=== PATIENT | female | born 2005 | race Caucasian/White ===

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

== ENCOUNTER 2025-01-10 10:34 | Outpatient (CLI) | payer BC, SELFPAY ==
[2025-01-11 03:36] LABS: Progesterone 29.6 ng/mL (.)
== END 2025-01-10 23:59 | disposition home or self-care (01) ==
LOC: LAB 10:35
PROVIDERS: Visit Provider Obstetrics & Gynecology
DX: Z32.01 Encounter for pregnancy test, result positive (principal)
CPT/HCPCS: 36415; 84144

== ENCOUNTER 2025-01-21 14:21 | Outpatient (CLI) | payer BC, SELFPAY ==
[2025-01-21 17:35] LABS: Alanine Aminotransferase 18 U/L (12-78); Albumin Level 4.2 g/dl (3.5-5.0); Albumin/Globulin Ratio 1.6 (1.1-1.8); Alkaline Phosphatase 69 U/L (38-126); Anion Gap 13.2 mEq/L (5-15); Aspartate Amino Transferase 24 U/L (14-36); Bilirubin,Total 0.4 mg/dl (0.2-1.3); Blood Urea Nitrogen 8 mg/dl (7-17); Calcium 9.5 mg/dl (8.4-10.2); Carbon Dioxide 26 mmol/L (22.0-30.0); Chloride 101 mmol/L (98-107); Estimated Glomerular Filt Rate 159 ml/min (>60); GFR (African American) 192 ML/MIN (>60); Globulin 2.6 g/dL (1.3-3.2); Glucose 81 mg/dl (74-100); Potassium 4.2 mmoL/L (3.5-5.1); Sodium 136 mmol/L (136-145); Total Protein,Serum 6.8 g/dl (6.3-8.2)
[2025-01-23 01:42] LABS: Bile Acids 13.5 umol/L (0.0-10.0)
== END 2025-01-21 23:59 | disposition home or self-care (01) ==
LOC: LAB 14:21
PROVIDERS: Visit Provider Obstetrics & Gynecology
DX: L29.89 Other pruritus (principal)
CPT/HCPCS: 36415; 80053; 82239

== ENCOUNTER 2025-02-28 15:09 | Outpatient (CLI) | payer BC, SELFPAY ==
[2025-02-28 15:31] LABS: Basophils % 0.2 % (0.1-2.0); Eosinophils # 0.1 Kmm3 (0.0-0.4); Eosinophils % 0.5 % (0.1-12.0); Hematocrit 37.3 % (37.0-47.0); Hemoglobin 12.9 g/dL (12.2-16.2); Immature Granulocytes # 0.11 10^3uL; Immature Granulocytes % 0.9 %; Lymphocytes # 2.2 K/mm3 (0.7-4.5); Lymphocytes % 18.1 % (10-50); Mean Corpuscular HGB Conc 34.6 g/dL (31.8-35.4); Mean Corpuscular Hemoglobin 29.1 pg (27.0-31.2); Mean Corpuscular Volume 84.2 fl (81-99); Mean Platelet Volume 10.5 fl (7.4-10.4); Monocytes # 0.6 K/mm3 (0.1-1.0); Monocytes % 4.6 % (1.7-9.3); Neutrophils # 9.1 K/mm3 (1.8-7.8); Neutrophils % 75.7 % (37.0-80.0); Nucleated Red Blood Cells # 0 10^3/uL; Nucleated Red Blood Cells % 0 %; Platelet Count 253 K/mm3 (142-424); Red Blood Count 4.43 M/mm3 (4.20-5.40); Red Cell Distribution Width 14.6 % (11.5-17.5); Red Cell Distribution Width-SD 44.6 fL; White Blood Count 12.1 K/mm3 (4.5-13.0)
[2025-02-28 16:04] LABS: Alanine Aminotransferase 14 U/L (12-78); Albumin Level 4.1 g/dl (3.5-5.0); Albumin/Globulin Ratio 1.8 (1.1-1.8); Alkaline Phosphatase 74 U/L (38-126); Anion Gap 8.8 mEq/L (5-15); Aspartate Amino Transferase 21 U/L (14-36); Bilirubin,Total 0.4 mg/dl (0.2-1.3); Blood Urea Nitrogen 7 mg/dl (7-17); Carbon Dioxide 24 mmol/L (22.0-30.0); Chloride 104 mmol/L (98-107); Estimated Glomerular Filt Rate 159 ml/min (>60); GFR (African American) 192 ML/MIN (>60); Globulin 2.3 g/dL (1.3-3.2); Glucose 89 mg/dl (74-100); Potassium 3.8 mmoL/L (3.5-5.1); Sodium 133 mmol/L (136-145); Total Protein,Serum 6.4 g/dl (6.3-8.2)
[2025-03-02 00:08] LABS: Bile Acids 17.6 umol/L (0.0-10.0)
== END 2025-02-28 23:59 | disposition home or self-care (01) ==
LOC: LAB 15:10
PROVIDERS: Visit Provider Obstetrics & Gynecology
DX: O26.892 Other specified pregnancy related conditions, second trimester (principal); Z67.91 Unspecified blood type, Rh negative; O26 Maternal care for other conditions predominantly related to pregnancy; L29.89 Other pruritus; Z3A.15 15 weeks gestation of pregnancy
CPT/HCPCS: 36415; 80053; 82239; 85025

== ENCOUNTER 2025-03-29 13:54 | Outpatient (CLI) | payer BC, SELFPAY ==
--- OUTSIDE RECORDS SUMMARY | 2025-03-29 13:56 | XMS_ITS | Clinical Summary ---
Author Organization [facility] Address [address] [place] [address] Phone Care Team Providers Care Pile Driving Supervisor Name Role Phone Unavailable Primary Care Provider Unavailabl e Allergies Active Allergy Reactions Criticality Noted Date Comments Amoxicillin-Pot Clavulanate Rash Low 03/16/20 24 Medications FLUoxetine (PROZAC) 10 mg Oral CapsuleIndicati ons:Anxiety and depression Take 1 Capsule by mouth daily. 90 Capsule 3 Active Additional Information Patient not taking.Reason: Therapy Completed, Reported on 05/14/2024 b idnxxre-N-odxzw acid (NEPHROCAP) 1 mg Oral Capsule Take 1 Capsule by mouth daily. Active multivitamin with folic acid (THERAGRAN) 400 mcg Oral Tablet Take 1 Tablet by mouth daily. Active phenazopyridine (PYRIDIUM) 95 mg Oral Tablet Take 95 mg by mouth daily. Active Cranberry 500 mg Oral Capsule Take by mouth. Active Active Problems Problem Noted Date Diagnosed Date Anxiety and depression 03/16/2024 Encounters Date Type Department Care Team Description 12/31/2024 11:59 AM EDT - 12/31/2024 11:59 PM EDT Hospital Encounter [facility] [place] [address] [address] Encounter for supervision of normal first in first trimester (Primary Dx) Discharge Disposition: Home or Self Care from Last 3 Months Immunizations Immunization Administration Dates Next Due DTaP, Unspecified Formulation 05/09/2009 ,09/01/2006,2005,08/17,2005 Hepatitis A, Ped/Adol, 2 Dose 06/02/2018, 018 Hepatitis B, Adult 05/11/2022 Hepatitis B, Ped/Adol 2005,2005,04/16 HiB, Unspecified Formulation 09/01/2006, 2005,2005,06/17 IPV 05/09/2009, 6,2005,06/17 Influenza Seasonal Injectable PF 08/31/2018 Influenza Vaccine Quadrivalent PF 08/22/2019 Influenza, Injectable, MDCK, PF, Quadrivalent 07/22/2020 Influenza, Split (Incl. Juliano fied Surface Antigen) 07/20/2024 MMR 05/09/2009,09/01/2006 Meningococcal Oligosaccharide Conjugate 05/17/20 Pfizer SARS-CoV-2 Vaccine Tr is-Sucrose 12+ Years (Rincon Cap) 06/05/2022,05/11/2022 Pneumococcal Conjugate, Unsp ecified Formulation 05/05/2006,2005,2005 Tdap 05/11/2022,05/17/2016 Varicella 05/17/2016,05/05/2006 meningococcal conjugate quad rivalent, MenACWY-TT (MCV4) 06/08/2022 Family History Medical History Relation Name Comments Hypertension Father Diabetes Maternal Aunt Diabetes Maternal Grandmother Diabetes Mother Hypertension Mother Mental Illness Paternal Grandfather Heart Attack Paternal Grandmother Relation Name Status Comments Father Maternal Aunt Maternal Grandmother Mother Paternal Grandfather Paternal Grandmother Social History Tobacco Use Types Packs/Day Years Used Date Smoking Tobacco: Never Passive Smoke Exposure: Never Smokeless Tobacco: Never Tobacco Cessation:Counseling Given: No PHQ-2 Answer Date Recorded PHQ-2 Total Score 0 03/16/2024 Comments No Sex and Gender Information Value Date Recorded Sex Assigned at Not on file Legal Sex Female 3:45 PM EDT Gender Identity Not on file Sexual Orientation Not on file Obstetrics History Growth Chart Information Age Height Weight Bvgorv-ojz-etcw th Percentile BMI Percentile Head Circum Head Circum Percentile Date 19 years 165.1 cm (5' 5 ) 59.1 kg (130 lb 3.2 oz) 51.28%* 2023 19 years 165.1 cm (5' 5 ) 58.7 kg (129 lb 6.4 oz) 49.74%* 2023 19 years 165.1 cm (5' 5 ) 59.2 kg (130 lb 9.6 oz) 52.28%* 2023 18 years 60.9 kg (134 lb 4.2 oz) 2023 18 years 165.1 cm (5' 5 ) 59.4 kg (131 lb) 53.50%* 2023 * [facility] (Girls, 2-20 Years) Last Filed Vital Signs Vital Sign Reading Time Taken Comments Blood Pressure 120/72 06/08/2024 4:12 PM EDT Pulse 116 06/08/2024 4:12 PM EDT Temperature 36.8 C (98.3 F) 06/08/2024 4:12 PM EDT Respiratory Rate 18 06/08/2024 4:12 PM EDT Oxygen Saturation 100% 06/08/2024 4:12 PM EDT Inhaled Oxygen Concentration - - Weight 59.1 kg (130 lb 3.2 oz) 06/08/2024 4:12 P M EDT Height 165.1 cm (5' 5 ) 06/08/2024 4:12 PM EDT Body Mass Index 21.67 06/08/2024 4:12 PM EDT Plan of Treatment Health Maintenance Due Date Last Done Comments HPV (1 - 3-dose series) 2020 Meningococcal B Vaccine (1 of 2 - Standard) 2021 COVID-19 Vaccine ( season) 2024 06/05/2022, 05/11/2022 Annual Wellness Exam 03/16/2025 03/16/2024 DTaP/TDaP/Td (8 - Td or Tdap) 05/11/2032 05/11/2022, 05/17/2016, 05/09/2009, Additional history exists Hepatitis B Vaccine Completed 05/11/2022, 2005, 2005, Additional history exists Influenza Vaccine Completed 07/20/2024, , 08/22/2019, Additional history exists Pneumococcal Vaccine 0-49 Aged Out No longer eligible based on patient's age to complete this topic Goals Goal Patient Goal Type Associated Problems Recent Progress Patient-Stated? Author Maintain a healthy diet, exercise regularly and maintain an ideal body weight General No Orquidea Vasques, INFORMATICIST Procedures Procedure Name Priority Date/Time Associated Diagnosis Comments BB HISTORY CHECK Callback 12/31/2024 12:2 5 PM EDT Encounter for supervision of normal first in first trimester ANTIBODY SCREEN IGG Callback 12/31/2024 1 2:25 PM EDT Encounter for supervision of normal first in first trimester ABORH Callback 12/31/2024 12:25 PM EDT Encounter for supervision of normal first in first trimester TYPE AND SCREEN Callback 12/31/2024 12:25 PM EDT Encounter for supervision of normal first in first trimester HIV AG/AB Routine 12/31/2024 12:25 PM EDT Encounter for supervision of normal first in first trimester RUBELLA ANTIBODY IGG Callback 12/31/2024 12:25 PM EDT Encounter for supervision of normal first in first trimester HCV ANTIBODY SCREEN W/ REFLEX Callback 12/31/2024 12:25 PM EDT Encounter for supervision of normal first in first trimester SYPHILIS SCREEN WITH REFLEX RPR QUANT Callback 12/31/2024 12:25 PM EDT Encounter for supervision of normal first in first trimester HEPATITIS B SURFACE ANTIGEN Callback 12/31/2024 12:25 PM EDT Encounter for supervision of normal first in first trimester CBC WITH DIFF Callback 12/31/2024 12:25 PM EDT Encounter for supervision of normal first in first trimester from Last 3 Months Results * HIV AG/AB (12/31/2024 12:25 PM EDT) HIV Ag/AB Non-Reacti ve Non-Reacti ve 12/31/2024 3:57 PM EDT NPC III Comment:Negative for HIV-1 a ntigen and anti-HIV-1/anti-HIV-2 antibodies. Blood VENOUS BLOOD / Unknown Venipuncture / Unknown 12/31/2024 12:25 PM EDT 12/31/2024 12:[address] [facility] [employer] - 12/31/2024 3:57 PM EDT Test performed using [employer] electrochemiluminescence immunassay (ECLIA). Sabrina Simms DO IMMUNOLOGY ORDERABLES Final Result Performing Organization Address City/[facility]/ZIP Co de Phone Number [facility] [employer]. [address] [facility], [place] [address] * BB HISTORY CHECK (12/31/2024 12:25 PM EDT) Pathologist [facility] BB HISTORY CHECK (1) No Previous History 12/31/2024 1:02 PM EDT [facility] Blood VENOUS BLOOD / Unknown Venipuncture / Unknown 12/31/2024 12:25 PM EDT 12/31/2024 12:27 PM EDT Sabrina Simms DO BLOOD BANK ORDERABLES Final Result Performing Organization Address [facility] Co de Phone Number [facility] [address] [place] [address] * SYPHILIS SCREEN WITH REFLEX RPR QUANT (12/31/2024 12:25 PM EDT) Pathologist [facility] Trep Ab Index 0.09 <=0.99 Index Value 12/31/2024 3:[address] [facility] [employer]. Comment: < 1.00 - Non-Reactive >=1.00 - Reactive NOTE: All reactive results will be reflexed to Quantitative Non-Treponemal(RPR)test. Blood VENOUS BLOOD / Unknown Venipuncture / Unknown 12/31/2024 12:25 PM EDT 12/31/2024 12:27 PM EDT Sabrina Simms DO CHEMISTRY ORDERABLES Final R esult [facility] [employer] [facility] [address] , [place] [address] * HCV ANTIBODY SCREEN W/ REFLEX (12/31/2024 12:25 PM EDT) [facility] Hep C Ab Non-Reacti ve Non-React malaika 12/31/2024 3:[address] [facility] [employer] [facility] Comment:No antibodies to HCV detected. Does not exclude possibility of exposure to HCV. Blood VENOUS BLOOD / Unknown Venipuncture / Unknown 12/31/2024 12:25 PM EDT 12/31/2024 12:[address] [facility] [employer] [facility] - 12/31/2024 3:57 PM EDT Test performed using [employer] electrochemiluminescence immunassay (ECLIA). us Sabrina Simms DO HEMATOLOGY ORDERABLES Final Result Performing Organization Address [facility]/ZIP Co de Phone Number [facility] [employer] [facility] [address] , [place] [address] * ABORH (12/31/2024 12:25 PM EDT) [facility] ABORH Int A NEG 12/31/2024 5:2 7 PM EDT [facility] Blood VENOUS BLOOD / Unknown Venipuncture / Unknown 12/31/2024 12:25 PM EDT 12/31/2024 12:27 PM EDT Sabrina Simms DO BLOOD BANK ORDERABLES Final Result Performing Organization Address City/[facility]/ZIP Co de Phone Number [facility] [address] [place] [address] * RUBELLA ANTIBODY IGG (12/31/2024 12:25 PM EDT) [facility] Rubella IgG 1.860 Index Value 12/31/2024 5:[address] [facility] [employer] [facility] Comment: < 0.90 - Negative No significant level of detectable rubella IgG Antibody (Presumed Non-Immune) 0.90 to 0.99 - Equivocal Repeat testing in 10-14 days is recommended > or = 1.00 - Positive Previous exposure or vaccination (Immune) Note: The magnitude of the measured result is not indicative of the amount of antibody present. Blood VENOUS BLOOD / Unknown Venipuncture / Unknown 12/31/2024 12:25 PM EDT 12/31/2024 12:27 PM EDT Sabrina Simms DO IMMUNOLOGY ORDERABLES Final Result Performing Organization Address [facility] de Phone Number [facility] [employer] , [place] [address] * HEPATITIS B SURFACE ANTIGEN (12/31/2024 12:25 PM EDT) [facility] Hep Bs Ag Non-Reacti ve Non-React malaika 12/31/2024 3:[address] [facility] [employer], [facility] Comment:HBsAg not detected. Does not exclude possibility of exposure to HBV. Blood VENOUS BLOOD / Unknown Venipuncture / Unknown 12/31/2024 12:25 PM EDT 12/31/2024 12:[address] [facility] [employer] [facility] - 12/31/2024 3:56 PM EDT Test performed using [employer] electrochemiluminescence immunassay (ECLIA). Sabrina Simms DO CHEMISTRY ORDERABLES Final R esult Performing Organization Address [facility] de Phone Number [facility] [employer], [address] , [place] [address] * (ABNORMAL) CBC WITH DIFF (12/31/2024 12:25 PM EDT) [facility] WBC 9.2 3.7 - 10.3 x10(3)/mcL 12/31/2024 1:05 PM EDT [facility] RBC 4.17 3.90 - 5.20 x10(6)/mcL 12/31/2024 1:05 PM EDT [facility] Hgb 11.4 11.2 - 15.7 g/dL 12/31/2024 1:05 PM EDT [facility] Hct 34.9 34.0 - 45.0 % 12/31/2024 1:05 PM EDT [facility] MCV 83.7 80.0 - 100.0 fL 12/31/2024 1:05 PM EDT [facility] MCH 27.3 26.0 - 34.0 pg 12/31/2024 1:05 PM EDT [facility] MCHC 32.7 30.7 - 35.5 g/dL 12/31/2024 1:05 PM EDT [facility] RDW 15.5(H) <=14.9 % 12/31/2024 1:05 PM EDT [facility] Platelet 242 155 - 369 x10(3)/mcL 12/31/2024 1:05 PM EDT [facility] MPV 11.1 8.8 - 12.5 fL 12/31/2024 1:05 PM EDT [facility] Neut Percent 70.1 % 12/31/2024 1:05 PM EDT [facility] Comment:Neutrophils equals s egs plus bands Imm Gran% 0.4 % 12/31/2024 1:05 PM EDT [facility] Comment:Automated count of m etamyelocytes, myelocytes and promyelocytes. Lymph Percent 23.3 % 12/31/2024 1:05 PM EDT [facility] [place] Percent 5.0 % 12/31/2024 1:05 PM EDT [facility] Eos Percent 1.0 % 12/31/2024 1:05 PM EDT [facility] Baso Percent 0.2 % 12/31/2024 1:05 PM EDT [facility] Neut # 6.5(H) 1.6 - 6.1 x10(3)/mcL 12/31/2024 1:05 PM EDT [facility] Comment:Neutrophils equals s egs plus bands IMMGRAN# 0.0 0.0 - 0.1 x10(3)/mcL 12/31/2024 1:05 PM EDT [facility] Comment:Automated count of m etamyelocytes, myelocytes and promyelocytes. An absolute IG <0.1 is reported as 0.0. Lymph # 2.2 1.2 - 3.9 x10(3)/mcL 12/31/2024 1:05 PM EDT [facility] [place] # 0.5 0.3 - 0.9 x10(3)/mcL 12/31/2024 1:05 PM EDT [facility] Eos# 0.1 0.0 - 0.5 x10(3)/mcL 12/31/2024 1:05 PM EDT [facility] Baso # 0.0 0.0 - 0.1 x10(3)/mcL 12/31/2024 1:05 PM EDT [facility] Blood VENOUS BLOOD / Unknown Venipuncture / Unknown 12/31/2024 12:25 PM EDT 12/31/2024 12:27 PM EDT us Sabrina Simms DO HEMATOLOGY ORDERABLES Final Result [facility] [address] [facility] [facility], [place] [address] * ANTIBODY SCREEN IGG (12/31/2024 12:25 PM EDT) [facility] ABSC IgG Int Negative 12/31/2024 5:27 PM EDT [facility] Blood VENOUS BLOOD / Unknown Venipuncture / Unknown 12/31/2024 12:25 PM EDT 12/31/2024 12:27 PM EDT us Sabrina Simms DO BLOOD BANK ORDERABLES Final Result [facility] [address] [place] [address] from Last 3 Months Insurance [facility] PPO Member Subscriber Plan / Payer (Ef fective 2018-Present) Name:Tejal Julianna Reese Relation to Subscriber:Self Name:Julianna Toure Mary Ann Payer ID:[id number] (NAIC) Group ID:Not on file Type:Not on file Address: [id number] [place] PPO Member Subscriber Plan / Payer ( fective 2018-Present) Name:TejalJulianna Relation to Subscriber:Self Name:Julianna Toure Payer ID:[id number] (NAIC) Group ID:Not on file Type:Not on file Address: [address] [place] [id number]
--- NOTE | 2025-03-29 14:02 | US_ITS ---
PROCEDURE: US OB /MATERNAL DETAIL CLINICAL INDICATION: 20 week anatomy scan COMPARISON: No exams were available for comparison FINDINGS: Transabdominal sonographic images of the pelvis were obtained. From her established due date she is 20 weeks 0 days. Single viable intrauterine gestation. Breech position. Placenta: Anterior placenta grade 1. There is an average amount of fluid. The cervix appears satisfactory. Closed and measuring 3.98 cm in length. Complete survey performed and was unremarkable on the submitted images as in PACS. No discrete anomalies identified on survey imaging by technologist. Active fetus. Three-vessel cord with satisfactory umbilical cord insertion. 4- chamber heart noted. Situs, aortic arch, LVOT, RVOT, three-vessel view appear normal. Survey of brain & ventricles Unremarkable. Cerebellum, thalamus, choroid plexus, cisterna magna appear normal. Face and neck survey unremarkable. Profile, nasion, lips and nose appeared normal. Diaphragm and chest views unremarkable. Abdomen: ONLY 1 KIDNEY IS VISUALIZED. Stomach and bladder noted and satisfactory. Spine: Survey of the spine satisfactory with no anomalies identified nor imaged. Cervical, thoracic, lower spine appear normal. Both arms and legs noted. Amniotic Fluid: Adequate. Measurements: Average ultrasound age 20weeks 1day. Estimated due date by ultrasound age 1008/15/2025. Estimated weight 327g BPD = 20weeks 0 days HC = 20weeks 2days AC = 20weeks 1day FL = 19weeks 6days Growth Percentile= 47 Heart Rate = 149bpm Cerebellum = 20weeks 1day Humerus = 20weeks 4days HC/AC is 1.2 FL/BPD is 0.69 FL/AC is 0.21 IMPRESSION: 1. Viable fetus in the breech presentation with an anterior placenta grade 1. 2. The fluid is within normal limits. 3. The fetus appears to have a unilateral kidney. Would suggest a maternal medicine consult. 4. The rest of the anatomical scan appears normal. 5. biometry is consistent with the dates. Dictated by: Jayden Joiner MD 03/30/2025 04:30 Jayden Joiner MD in [place] 03/30/2025 04:30
== END 2025-03-29 23:59 | disposition home or self-care (01) ==
LOC: RAD 13:55
PROVIDERS: PCP Internal Medicine Adolescent Medicine; Visit Provider Obstetrics & Gynecology
DX: O32.1XX0 Maternal care for breech presentation, not applicable or unspecified (principal); O35.EXX0 Maternal care for other (suspected) fetal abnormality and damage, fetal genitourinary anomalies, not applicable or unspecified; Z3A.20 20 weeks gestation of pregnancy
CPT/HCPCS: 76811

== ENCOUNTER 2025-05-06 14:39 | Outpatient (CLI) | payer BC, SELFPAY ==
--- OUTSIDE RECORDS SUMMARY | 2025-03-21 12:28 | XMS_ITS | Encounter Summary ---
[facility] Organization [facility] Address [address] [place] [address] Care Team Providers Care Dental Sales Representative Name Role Phone Provider, No Known Primary Care Provider Unavail able Reason for Referral * Diagnostic Imaging (Routine) - Closed Specialty Diagnoses / Procedures Referred By Kb t Referred To Contact Radiology Diagnoses Intrahepatic cholestasis of , antepartum , unspecified gestational age Procedures [facility] [place] [address] [place] [address] Phone: tel: fax: [facility] [address] [place] [address] Phone: tel: Referral ID Status Reason Start Date Expiration Date Visits Re quested Visits Authorized [id number] Closed 02/01/2025 05/03/2026 1 1 Reason for Visit * Diagnostic Imaging (Routine) - Closed Specialty Diagnoses / Procedures Referred By Conthafsa t Referred To Contact Radiology Diagnoses Intrahepatic cholestasis of , antepartum , unspecified gestational age Procedures [facility] [place] [address] [place] [address] [address] [place] [address] Phone: tel: fax: [facility] [address] [place] [address] Phone: tel: Referral ID Status Reason Start Date Expiration Date Visits Re quested Visits Authorized [id number] Closed 02/01/2025 05/03/2026 1 1 Encounter Details Date Type Department Care Team (Latest Contact Info) Description 03/21/2025 12:28 PM EDT - 03/21/2025 11:59 PM EDT Hospital Encounter [facility] [address] [place] [id number] Sabrina Simms DO [address] [facility] [address] [place] [address] Intrahepatic cholestasis of , antepartum; , unspecified gestational age Discharge Disposition: Home or Self Care Social History Tobacco Use Types Packs/Day Years Used Date Smoking Tobacco: Never Smokeless Tobacco: Never Alcohol Use Standard Drinks/Week Comments Never 0 (1 standard drink = 0.6 oz pur e alcohol) Estimated Date of Delivery Comme nts Yes 08/16/2025 Date entered dae or to episode creation Sex and Gender Information Value Date Recorded Sex Assigned at Not on file Legal Sex Female 7:28 AM EDT Gender Identity Not on file Sexual Orientation Not on file documented as of this encounter Medications at Time of Discharge Ojokshjq-Pye-Rp-F A ( 1 + IRON PO) Take 1 tablet by mouth Daily. 11/27/2024 ursodiol (ACTIGALL) 300 MG capsule Take 1 capsule by mouth 2 (Two) Times a Day. 03/19/2025 documented as of this encounter Plan of Treatment Upcoming Encounters Date Type Department Care Team (Late st Contact Info) Description 06/13/2025 2:15 PM EDT Office Visit [facility] [address] [place] [address] 06/13/2025 2:15 PM EDT Appointment [facility] [address] [place] [address] documented as of this encounter Procedures Procedure Name Priority Date/Time Associated Diagnosis Comments [facility] Routine 03/21/2025 1:43 PM EDT Intrahepatic cholestasis of , antepartum , unspecified gestational age documented in this encounter Results * [facility] (03/21/2025 1:43 PM EDT) Anatomical Region Laterality Modality Ultrasound 03/21/2025 12:5 9 PM EDT Narrative 03/27/2025 12:28 PM EDT PAT NAME: BENJY TOURE MED REC#: [id number] DA: 2005 PAT GEND: F PAT TYPE: O EXAM RODRIGO: [id number] REF PHYS SABRINA SIMMS Comparison Studies There are no relevant prior studies to which this study is being compared Patient Status Outpatient Indication ======== Intrahepatic cholestasis. Hyperlipidemia Maternal Assessment Height 168 cm Height (ft) 5 ft Height (in) 6 in Weight 60 kg Weight (lb) 132 lb BMI 21.31 kg/m Method ======= Transabdominal ultrasound examination ========= Wallace . Number of fetuses: 1 Dating ====== Method of dating: based on stated TAHIR GA by prior assessment 18 w + 6 d TAHIR by prior assessment: 08/16/2025 Ultrasound examination on: 03/21/2025 GA by U/S based upon: AC, BPD, Femur, HC GA by U/S 19 w + 0 d TAHIR by U/S: 08/15/2025 Assigned: based on stated TAHIR, selected on 03/21/2025 Assigned GA 18 w + 6 d Assigned TAHIR: 08/16/2025 length 280 d Biometry Standard BPD 43.1 mm 19w 0d 59% Hadlock OFD 57.1 mm 20w 0d 87% Lisa HC 160.3 mm 18w 6d 42% Hadlock Cerebellum tr 19.2 mm 18w 5d 30% Hill Nuchal fold 3.5 mm AC 139.7 mm 19w 3d 63% Hadlock Femur 27.6 mm 18w 3d 28% Hadlock Humerus 27.5 mm 18w 5d 49% Lisa HC / AC 1.15 32% Hadlock EFW 265 g 18w 6d 49% Hadlock EFW (lb) 0 lb EFW (oz) 9 oz EFW by: Hadlock ([id number]) Extended Tibia 24.6 mm 18w 5d 50% Lisa Fibula 24.7 mm 18w 4d 42% Lisa Radius 24.2 mm 19w 0d 50% Lisa Ulna 27.8 mm 20w 1d 81% Lisa Cav. septi pel. tr 3.9 mm Ornamental Iron Worker 5.8 mm CM 5.2 mm 68% Nicolaides Nasal bone 6.2 mm Lt Renal pelvis ap 2.7 mm Head / Face / Neck Cephalic index 0.75 15% Nicolaides Extremities / Bony Struc FL / BPD 0.64 20% Hadlock FL / HC 0.17 16% Hadlock FL / AC 0.20 14% Hadlock Other Structures FHR 151 bpm General Evaluation Cardiac activity present. FHR 151 bpm. movements present. Presentation cephalic. Placenta Placental site: anterior. Umbilical cord Cord vessels: 3 vessel cord. Insertion site: placental insertion: normal. Amniotic fluid Amount of AF: normal. MVP 4.4 cm. Anatomy Cranium: Appears normal Midline falx: Appears normal Cavum septi pellucidi: Appears normal Cerebellum: Appears normal Cisterna magna: Appears normal Head / Neck Rt lateral ventricle: Appears normal Lt lateral ventricle: Appears normal Rt choroid plexus: Appears normal Lt choroid plexus: Appears normal Vermis: Appears normal Neck: Appears normal Nuchal fold: Appears normal Lips: Appear normal Profile: Appears normal Nose: Appears normal Face Nose: Nasal bone present Palate: Appears normal Orbits: Appears normal Lens: Normal 4-chamber view: Appears normal RVOT view: Appears normal LVOT view: Appears normal Heart / Thorax Aortic arch view: Appears normal Ductal arch view: Appears normal SVC: normal IVC: normal 3-vessel view: Appears normal 5-brfphs-sfucord view: Appears normal Rt lung: Appears normal Lt lung: normal Diaphragm: Appears normal Diaphragm: Intact Cord insertion: Appears normal Stomach: Appears normal Bladder: Appears normal Abdomen Rt kidney: normal Lt kidney: normal Liver: normal Small bowel: normal Large bowel: normal Cervical spine: Appears normal Thoracic spine: Appears normal Lumbar spine: Appears normal Sacral spine: Appears normal Arms: Appears normal Legs: Appears normal Rt upper arm: Appears normal Rt forearm: Appears normal Rt hand: Appears normal Lt upper arm: Appears normal Lt forearm: Appears normal Lt hand: Appears normal Rt upper leg: Appears normal Rt lower leg: Appears normal Rt foot: Appears normal Lt upper leg: Appears normal Lt lower leg: Appears normal Lt foot: Appears normal Gender: male Wants to know gender: yes Maternal Structures Uterus / Cervix Cervix: Visualized Approach: Transabdominal Cervical length 46.0 mm Ovaries / Tubes / Adnexa Rt ovary: Visualized Lt ovary: Visualized Impression Today's exam reveals a SIUP with biometry consistent with dates. anatomic survey appears normal. Fluid is normal. The placenta is anterior. The TA cervical length appears adequate Recommendation Follow up 4 weeks for growth Coding ======= Description: [id number] Detailed Marriage Performer: Ani Murphy RDMS Physician: Batool Frederick MD, FACOG Electronically signed by: Batool Frederick MD, FACOG at: 12:28 Procedure Note Batool Frederick MD - 03/27/2025 PAT NAME: BENJY TOURE MED REC#: [id number] DA: 2005 PAT GEND: F PAT TYPE: O EXAM RODRIGO: [id number] REF PHYS SABRINA SIMMS Comparison Studies There are no relevant prior studies to which this study is beingcompared Patient Status Outpatient Indication ======== Intrahepatic cholestasis. Hyperlipidemia Maternal Assessment Iwwbfm554 cm Height (ft)5 ft Height (in)6 in Mdofyz95 kg Weight (lb)132 lb BMI21.31 kg/m Method ======= Transabdominal ultrasound examination ========= Wallace . Number of fetuses: 1 Dating ====== Method of dating:based on stated TAHIR GA by prior [id number] w + 6 d TAHIR by prior assessment:08/16/2025 Ultrasound examination on:03/21/2025 GA by U/S based upon:AC, BPD, Femur, HC GA by U/S19 w + 0 d TAHIR by U/S:08/15/2025 Assigned:based on stated TAHIR, selected on 03/21/2025 Assigned GA18 w + 6 d Assigned TAHIR:08/16/2025 d Biometry Standard BPD43.1 mm 19w 0d 59% Hadlock OFD57.1 mm 20w 0d 87% Lisa HC160.3 mm 18w 6d 42% Hadlock Cerebellum tr19.2 mm 18w 5d 30% Hill Nuchal fold3.5 mm AC139.7 mm 19w 3d 63% Hadlock Femur27.6 mm 18w 3d 28% Hadlock Tuvbafe37.5 mm 18w 5d 49% Lisa HC / AC1.15 32% Hadlock GAW288 g 18w 6d 49% Hadlock EFW (lb)0 lb EFW (oz)9 oz EFW by:Hadlock ([id number]) Extended Tibia24.6 mm 18w 5d 50% Lisa Qfmlwu87.7 mm 18w 4d 42% Lisa Qepdyh27.2 mm 19w 0d 50% Lisa Ulna27.8 mm 20w 1d 81% Lisa Cav. septi pel. tr3.9 mm Vp5.8 mm CM5.2 mm 68% Nicolaides Nasal bone6.2 mm Lt Renal pelvis ap2.7 mm Head / Face / Neck Cephalic index0.75 15% Nicolaides Extremities / Bony Struc FL / BPD0.64 20% Hadlock FL / HC0.17 16% Hadlock FL / AC0.20 14% Hadlock Other Structures [id number] bpm General Evaluation Cardiac activity present. FHR 151 bpm. movements present. Presentation cephalic. Placenta Placental site: anterior. Umbilical cord Cord vessels: 3 vessel cord. Insertion site: placentalinsertion: normal. Amniotic fluid Amount of AF: normal. MVP 4.4 cm. Anatomy Cranium:Appears normal Midline falx:Appears normal Cavum septi pellucidi:Appears normal Cerebellum:Appears normal Cisterna magna:Appears normal Head / Neck Rt lateral ventricle:Appears normal Lt lateral ventricle:Appears normal Rt choroid plexus:Appears normal Lt choroid plexus:Appears normal Vermis:Appears normal Neck:Appears normal Nuchal fold:Appears normal Lips:Appear normal Profile:Appears normal Nose:Appears normal Face Nose:Nasal bone present Palate:Appears normal Orbits:Appears normal Lens:Normal 4-chamber view:Appears normal RVOT view:Appears normal LVOT view:Appears normal Heart / Thorax Aortic arch view:Appears normal Ductal arch view:Appears normal SVC:normal IVC:normal 3-vessel view:Appears normal 1-xgoiof-fsnjqsc view:Appears normal Rt lung:Appears normal Lt lung:normal Diaphragm:Appears normal Diaphragm:Intact Cord insertion:Appears normal Stomach:Appears normal Bladder:Appears normal Abdomen Rt kidney:normal Lt kidney:normal Liver:normal Small bowel:normal Large bowel:normal Cervical spine:Appears normal Thoracic spine:Appears normal Lumbar spine:Appears normal Sacral spine:Appears normal Arms:Appears normal Legs:Appears normal Rt upper arm:Appears normal Rt forearm:Appears normal Rt hand:Appears normal Lt upper arm:Appears normal Lt forearm:Appears normal Lt hand:Appears normal Rt upper leg:Appears normal Rt lower leg:Appears normal Rt foot:Appears normal Lt upper leg:Appears normal Lt lower leg:Appears normal Lt foot:Appears normal Gender:male Wants to know gender:yes Maternal Structures Uterus / Cervix Cervix:Visualized Approach:Transabdominal Cervical buifbe01.0 mm Ovaries / Tubes / Adnexa Rt ovary:Visualized Lt ovary:Visualized Impression Today's exam reveals a SIUP with biometry consistent with dates. Fetalanatomic survey appears normal. Fluid is normal. The placenta is anterior.The TA cervical length appears adequate Recommendation Follow up 4 weeks for growth Coding ======= Description:[id number] Detailed Marriage Performer: Ani Murphy RDMS Physician: Batool Frederick MD, FACOG Electronically signed by: Batool Frederick MD, FACOG at: 1112:28 us Sabrina Simms DO IMG US ORDERABLES Final Result documented in this encounter Visit Diagnoses Diagnosis Intrahepatic cholestasis of , antepartum , unspecified gestational age documented in this encounter Care Teams Dental Sales Representative Relationship Specialty Start Date End Date Provider, [place] [address] PCP - General 02/01/25 documented as of this encounter
--- OUTSIDE RECORDS SUMMARY | 2025-03-21 12:30 | XMS_ITS | Encounter Summary ---
Author Organization [facility] Address [address] [place] [address] Care Team Providers Care Group Fitness Instructor Name Role Phone Provider, No Known Primary Care Provider Unavail able Reason for Referral * Diagnostic Imaging (Routine) - Closed Specialty Diagnoses / Procedures Referred By Kb marino Referred To Contact Radiology Diagnoses Intrahepatic cholestasis of in second trimester Procedures [facility] Batool Frederick MD [address] [facility] [address] [place] [id number] Phone: tel: fax: Referral ID Status Reason Start Date Expiration Date Visits Re quested Visits Authorized [id number] Closed 03/27/2025 06/26/2026 1 1 Reason for Visit * Reason Comments Intrahepatic cholestatsis of Encounter Details Date Type Department Care Team (Late st Contact Info) Description 03/21/2025 12:30 PM EDT Office Visit [facility] MATERNAL MEDICINE [address] [facility] [address] [place] [phone] Batool Frederick MD [address] [facility] [address] [place] [address] Intrahepatic cholestasis of in second trimester (Primary Dx) Social History Tobacco Use Types Packs/Day Years Used Date Smoking Tobacco: Never Smokeless Tobacco: Never Tobacco Cessation:Counseling Given: Not Answered Alcohol Use Standard Drinks/Week Comments Never 0 [...] on file documented as of this encounter Last Filed Vital Signs Vital Sign Reading Time Taken Comments Blood Pressure 100/64 03/21/2025 12:50 PM EDT Pulse - - Temperature - - Respiratory Rate - - Oxygen Saturation - - Inhaled Oxygen Concentration - - Weight 59.9 kg (132 lb) 03/21/2025 12:50 PM EDT Height 168.9 cm (5' 6.5 ) 03/21/2025 12:51 PM ED T Body Mass Index 20.99 03/21/2025 12:50 PM EDT documented in this encounter Progress Notes * Kyra Palmer RN - 03/21/2025 12:30 PM EDT F/U with Dr. Simms 03/27/25. NIPT low risk. Pt reports feeling bubbles for FM. Denies contractions, cramping, leaking of fluid, vaginal bleeding. Planned delivery at 37-38 weeks related to intrahepatic cholestasis of . * Batool Frederick MD - 03/21/2025 12:30 PM EDT Patient seen in Diagnostic Center today for ultrasound. Please see ultrasound report under imaging tab of patient chart in [facility] (Viewpoint report). Batool Frederick MD documented in this encounter Plan of Treatment Upcoming Encounters Date Type Department Care Team (Late st Contact Info) Description 06/13/2025 2:15 PM EDT Office Visit [facility] MATERNAL MEDICINE [address] [place] [address] [place] [phone] 06/13/2025 2:15 PM EDT Appointment [facility] [address] [place] [address] documented as of this encounter Results * [facility] (05/02/2025 1:30 PM EDT) Anatomical Region Laterality Modality Ultrasound 05/02/2025 1:08 PM EDT Narrative 05/02/2025 2:12 PM EDT PAT NAME: BENJY TOURE MED REC#: [id number] DA: 2005 PAT GEND: F PAT TYPE: O EXAM RODRIGO: [id number] REF PHYS JENIFER SIMMS Comparison Studies The findings of this study are compared to the prior ultrasound study dated 03/21/25 Patient Status Outpatient Indication ======== Cholestasis. Family hx renal agenesis. Maternal Assessment Height 168 cm Height (ft) 5 ft Height (in) 6 in Weight 64 kg Weight (lb) 140 lb BMI 22.60 kg/m Method ======= Transabdominal ultrasound examination. View: Adequate view ========= Wallace . Number of fetuses: 1 Dating ====== Method of dating: based on stated TAHIR GA by prior assessment 24 w + 6 d TAHIR by prior assessment: 08/16/2025 Ultrasound examination on: 05/02/2025 GA by U/S based upon: AC, BPD, Femur, HC GA by U/S 25 w + 6 d TAHIR by U/S: 08/09/2025 Previous dating: based on stated TAHIR, selected on 03/21/2025 Agreed TAHIR of previous datin08/16/2025 Assigned: based on stated TAHIR, selected on 05/02/2025 Assigned GA 24 w + 6 d Assigned TAHIR: 08/16/2025 length 280 d Biometry Standard BPD 63.2 mm 25w 4d 69% Hadlock OFD 88.0 mm 28w 2d >99% Lisa HC 246.1 mm 26w 5d 89% Hadlock Cerebellum tr 30.4 mm 26w 2d 91% Hill AC 211.2 mm 25w 5d 66% Hadlock Femur 45.9 mm 25w 2d 48% Hadlock Humerus 44.3 mm 26w 2d 86% Lisa HC / AC 1.17 EFW 829 g 25w 2d 72% Hadlock EFW (lb) 1 lb EFW (oz) 13 oz EFW by: Hadlock (BVT-OD-SR-FL) Extended Cav. septi pel. tr 4.8 mm Tso 3.6 mm CM 6.1 mm 50% Nicolaides Head / Face / Neck Cephalic index 0.72 2% Nicolaides Extremities / Bony Struc FL / BPD 0.73 FL / HC 0.19 FL / AC 0.22 Other Structures FHR 144 bpm General Evaluation Cardiac activity present. FHR 144 bpm. movements present. Presentation cephalic. Placenta Placental site: anterior. Amniotic fluid Amount of AF: normal. MVP 6.6 cm. Anatomy Cranium: Normal Cavum septi pellucidi: Normal Cerebellum: Normal Cisterna magna: Normal Head / Neck Rt lateral ventricle: Normal Lt lateral ventricle: Normal Lips: Normal Profile: Normal Nose: Normal 4-chamber view: Appears normal RVOT view: Normal LVOT view: Normal Heart / Thorax 3-vessel view: Normal 3-czjunr-ijfnnqz view: normal Stomach: Appears normal Bladder: Appears normal Abdomen Rt kidney: visualized Rt kidney: pelvic kidney, posterior to the bladder Lt kidney: visualized Lt kidney: 3.5 mm , dilatation Gender: male Wants to know gender: yes Maternal Structures Uterus / Cervix Approach: Transabdominal Cervical length 38.3 mm Consultation / Office Visit Office note to follow Impression ========= Size consistent with dates. Right kidney appears midline and pelvic. Left kidney appears normal. No other anomalies were identified. No markers for trisomy. The cervical length appears normal. Recommendation We recommend evaluation in 6 weeks. Follow up appointment scheduled here in 6 weeks. Coding ====== Description: [id number] Follow Up Window Shade Ring Sewer: Yessi August RDMS Physician: Denzel Edgar MD, FACOG Electronically signed by: Denzel Edgar MD, CLARAOG at: 14:12 Procedure Note Erik Edgar MD - 05/02/2025 PAT NAME: BENJY TOURE MED REC#: [id number] DA: [id number] PAT GEND: F PAT TYPE: O EXAM RODRIGO: [id number] REF PHYS JENIFER SIMMS Comparison Studies The findings of this study are compared to the prior ultrasound studydated 03/21/25 Patient Status Outpatient Indication ======== Cholestasis. Family hx renal agenesis. Maternal Assessment Xxvysq153 cm Height (ft)5 ft Height (in)6 in Kptohc76 kg Weight (lb)140 lb BMI22.60 kg/m Method ======= Transabdominal ultrasound examination. View: Adequate view ========= Wallace . Number of fetuses: 1 Dating ====== Method of dating:based on stated TAHIR GA by prior [id number] w + 6 d TAHIR by prior assessment:08/16/2025 Ultrasound examination on:05/02/2025 GA by U/S based upon:AC, BPD, Femur, HC GA by U/S25 w + 6 d TAHIR by U/S:08/09/2025 Previous dating:based on stated TAHIR, selected on 03/21/2025 Agreed TAHIR of previous datin08/16/2025 Assigned:based on stated TAHIR, selected on 05/02/2025 Assigned GA24 w + 6 d Assigned TAHIR:08/16/2025 [id number] d Biometry Standard BPD63.2 mm 25w 4d 69% Hadlock OFD88.0 mm 28w 2d >99% Lisa HC246.1 mm 26w 5d 89% Hadlock Cerebellum tr30.4 mm 26w 2d 91% Hill AC211.2 mm 25w 5d 66% Hadlock Femur45.9 mm 25w 2d 48% Hadlock Qeialrt10.3 mm 26w 2d 86% Lisa HC / AC1.17 DHX239 g 25w 2d 72% Hadlock EFW (lb)1 lb EFW (oz)13 oz EFW by:Hadlock (UQS-JG-XS-FL) Extended Cav. septi pel. tr4.8 mm Vp3.6 mm CM6.1 mm 50% Nicolaides Head / Face / Neck Cephalic index0.72 2% Nicolaides Extremities / Bony Struc FL / BPD0.73 FL / HC0.19 FL / AC0.22 Other Structures [id number] bpm General Evaluation Cardiac activity present. FHR 144 bpm. movements present. Presentation cephalic. Placenta Placental site: anterior. Amniotic fluid Amount of AF: normal. MVP 6.6 cm. Anatomy Cranium:Normal Cavum septi pellucidi:Normal Cerebellum:Normal Cisterna magna:Normal Head / Neck Rt lateral ventricle:Normal Lt lateral ventricle:Normal Lips:Normal Profile:Normal Nose:Normal 4-chamber view:Appears normal RVOT view:Normal LVOT view:Normal Heart / Thorax 3-vessel view:Normal 6-ycgzcf-xkupdel view:normal Stomach:Appears normal Bladder:Appears normal Abdomen Rt kidney:visualized Rt kidney:pelvic kidney, posterior to the bladder Lt kidney:visualized Lt kidney:3.5 mm , dilatation Gender:male Wants to know gender:yes Maternal Structures Uterus / Cervix Approach:Transabdominal Cervical vptwve43.3 mm Consultation / Office Visit Office note to follow Impression ========= Size consistent with dates. Right kidney appears midline and pelvic. Left kidney appears normal. No other anomalies were identified. No markers for trisomy. The cervical length appears normal. Recommendation We recommend evaluation in 6 weeks. Follow up appointment scheduled here in 6 weeks. Coding ====== Description:[id number] Follow Up Window Sh[place] Ring Sewer: Yessi August RDMS Physician: Denzel Edgar MD, FACOG Electronically signed by: Denzel Edgar MD, FACOG at: 14:12 us Batool Frederick MD IMG US ORDERABLES Final Result documented in this encounter Visit Diagnoses Diagnosis Intrahepatic cholestasis of in second trimester- Primary Intrahepatic cholestasis of in second trimester documented in this encounter Care Teams Group Fitness Instructor Relationship Specialty Start Date End Date Provider, [place] [address] PCP - General 02/01/25 documented as of this encounter
--- OUTSIDE RECORDS SUMMARY | 2025-04-12 11:32 | XMS_ITS | Encounter Summary ---
Author Organization [place] [address] Care Team Providers Care Seismic Plotter Name Role Phone Unavailable Primary Care Provider Unavailabl e Reason for Visit * Reason Comments Abdominal Cramping Encounter Details Date Type Department Care Team (Latest Contact Info) Description 04/12/2025 11:32 AM EDT - 04/12/2025 12:44 PM EDT Hospital Encounter EDG [facility]DR[facility] [place] [address] Asael Beard MD [address] [place] [address] [place] [address] Discharge Disposition: Home or Self [...] 04/12/2025 11:51 AM Sabrina Souza RN * [place] Suicide Severity Rating Scale (Q shift for [...] Castillo RN - 04/12/2025 12:33 PM EDT [facility] Movement Record (Kick Count) In order to [...] swishes, or rolls. Call your physician or bedspread seamer if there have not been 10 kicks in 2 hours Call physician or bedspread seamer, return to Labor and Delivery, call 911, or go to the nearest Emergency Room if: increased leakage or fluid, contractions more than 6 per 1 hour, decreased movement, persistent low back pain or cramping, bleeding from vaginal area, difficulty urinating, pain with urination, difficulty breathing, new calf pain, persistent headache or vision change documented in this encounter Medications at Time of Discharge vit no.124/iron/folic ( VITAMIN ORAL) Take by mouth. ursodioL (ACTIGALL) 300 mg Oral Capsule Take 300 mg by mouth 2 times daily. b mwubrdk-U-wyqia acid (NEPHROCAP) 1 mg Oral Capsule Take [...] Tablet Take 95 mg by mouth daily. documented as of this encounter Discharge Disposition Disposition Code Departure Means Destination Comment s Home or Self [facility] documented in this encounter Progress Notes * [...] Villalobos MD - 04/12/2025 12:00 PM EDT [facility] OB Triage Progress Note S: Pt is a 19 y.o. at 22w0d with Estimated Date of Delivery: 08/16/25 presents to triage c/o Rabdominal pain that was persistent for about 30m, and has since subsided since being in triage. 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 04/11/2025 Provider, Historical b ctazqdf-H-wtfuc acid (NEPHROCAP) 1 mg Oral Capsule Take [...] Ox3; judgement and insight intact; memory both senior care and short term intact. 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
--- OUTSIDE RECORDS SUMMARY | 2025-05-02 12:45 | XMS_ITS | Encounter Summary ---
Author Organization [facility] Address [address] [place] [address] Care Team Providers Care Assistant Product Manager Name Role Phone Provider, No Known Primary Care Provider Unavail able Reason for Referral * Diagnostic Imaging (Routine) - Closed Specialty Diagnoses / Procedures Referred By Kb marino Referred To Contact Radiology Diagnoses Intrahepatic cholestasis of in second trimester Procedures [facility] Diagnostic [place] Batool Frederick MD [address] [place] [address] Phone: tel: fax: Referral ID Status Reason Start Date Expiration Date Visits Re quested Visits Authorized Closed 03/27/2025 06/26/2026 1 1 Reason for Visit * Diagnostic Imaging (Routine) - Closed Specialty Diagnoses / Procedures Referred By Kb marino Referred To Contact Radiology Diagnoses Intrahepatic cholestasis of in second trimester Procedures [facility] Diagnostic [place] Batool Frederick MD [address] [id number] Phone: tel: fax: Referral ID Status Reason Start Date Expiration Date Visits Re quested Visits Authorized Closed 03/27/2025 06/26/2026 1 1 Encounter Details Date Type Department Care Team (Late st Contact Info) Description 05/02/2025 12:45 PM EDT - 05/02/2025 11:59 PM EDT Hospital Encounter [facility] [address] [place] [phone] Batool Frederick MD [address] [facility] [address] [place] [address] Intrahepatic cholestasis of in second trimester Discharge Disposition: Home or Self Care Social [...] this encounter Medications at Time of Discharge Ozftzjaf-Fil-Er-F A ( 1 + IRON PO) Take 1 tablet by mouth Daily. 11/27/2024 ursodiol (ACTIGALL) 300 MG capsule Take 1 capsule by mouth 2 (Two) Times a Day. 03/19/2025 documented as of this encounter Plan of Treatment Upcoming Encounters Date Type Department Care Team (Late st Contact Info) Description 06/13/2025 2:15 PM EDT Office Visit [facility] MEDIC[facility] [address] [facility] [address] [place] [phone] 06/13/2025 2:15 PM EDT Appointment [facility] [address] [place] [phone] documented as of this encounter Procedures Procedure Name Priority Date/Time Associated Diagnosis Comments [facility] Routine 05/02/2025 1:30 PM EDT Intrahepatic cholestasis of in second trimester documented in this encounter Results * [facility] (05/02/2025 1:30 PM EDT) Anatomical Region Laterality Modality Ultrasound 05/02/2025 1:08 PM EDT Narrative 05/02/2025 2:12 PM EDT PAT NAME: BENJY TOURE [facility] REC#: [id number] DA: [id number] PAT GEND: F PAT TYPE: O EXAM RODRIGO: [id number] REF PHYS JENIFER CHRISTIANSON Comparison Studies The findings of this study [...] EFW (oz) 13 oz EFW by: Hadlock (XAB-GF-FU-FL) Extended Cav. septi pel. tr 4.8 mm Associate Director Of Nursing 3.6 mm CM 6.1 mm 50% Nicolaides [...] Normal Heart / Thorax 3-vessel view: Normal 9-urhjqo-rjkdkmt view: normal Stomach: Appears normal Bladder: Appears [...] here in 6 weeks. Coding ====== Description: 51878-81 Follow Up Board Saw Runner: Yessi August RDMS Physician: Denzel Edgar MD, FACOG Electronically signed by: Denzel Edgar MD, FACOG at: 14:12 Procedure Note Erik Edgar MD - 05/02/2025 PAT NAME: BENJY TOURE [facility] REC#: [id number] DA: 2005 PAT GEND: F PAT TYPE: O EXAM RODRIGO: [id number] REF PHYS JENIFER CHRISTIANSON Comparison Studies The findings of this study are compared to the prior ultrasound studydated 03/21/25 Patient Status Outpatient Indication ======== Cholestasis. Family hx renal agenesis. Maternal Assessment Fimnvn917 cm Height (ft)5 ft Height (in)6 in Jhoizv30 kg Weight (lb)140 lb BMI22.60 kg/m Method ======= Transabdominal ultrasound examination. View: Adequate view ========= Wallace . Number of fetuses: 1 Dating ====== Method of dating:based on stated TAHIR GA by prior [id number] w + 6 d TAHIR by prior assessment:08/16/2025 Ultrasound examination on:05/02/2025 GA by U/S based upon:AC, BPD, Femur, HC GA by U/S25 w + 6 d TAHIR by U/S:08/09/2025 Previous dating:based on stated TAHIR, selected on 03/21/2025 Agreed TAHIR of previous datin08/16/2025 Assigned:based on stated TAHIR, selected on 05/02/2025 Assigned GA24 w + 6 d Assigned TAHIR:08/16/2025 [id number] d Biometry Standard BPD63.2 mm 25w 4d 69% Hadlock OFD88.0 mm 28w 2d >99% Lisa HC246.1 mm 26w 5d 89% Hadlock Cerebellum tr30.4 mm 26w 2d 91% Hill AC211.2 mm 25w 5d 66% Hadlock Femur45.9 mm 25w 2d 48% Hadlock Smltrcw98.3 mm 26w 2d 86% Lisa HC / AC1.17 LSW961 g 25w 2d 72% Hadlock EFW (lb)1 lb EFW (oz)13 oz EFW by:Hadlock (JAQ-TM-FN-FL) Extended Cav. septi pel. tr4.8 mm Vp3.6 mm CM6.1 mm 50% Nicolaides Head / Face / Neck Cephalic index0.72 2% Nicolaides Extremities / Bony Struc FL / BPD0.73 FL / HC0.19 FL / AC0.22 Other Structures IVO438 bpm General Evaluation Cardiac activity present. FHR 144 bpm. movements present. Presentation cephalic. Placenta Placental site: anterior. Amniotic fluid Amount of AF: normal. MVP 6.6 cm. Anatomy Cranium:Normal Cavum septi pellucidi:Normal Cerebellum:Normal Cisterna magna:Normal Head / Neck Rt lateral ventricle:Normal Lt lateral ventricle:Normal Lips:Normal Profile:Normal Nose:Normal 4-chamber view:Appears normal RVOT view:Normal LVOT view:Normal Heart / Thorax 3-vessel view:Normal 7-ysvyvu-firwzne view:normal Stomach:Appears normal Bladder:Appears normal Abdomen Rt kidney:visualized Rt kidney:pelvic kidney, posterior to the bladder Lt kidney:visualized Lt kidney:3.5 mm , dilatation Gender:male Wants to know gender:yes Maternal Structures Uterus / Cervix Approach:Transabdominal Cervical .3 mm Consultation / Office Visit Office note to follow Impression ========= Size consistent with dates. Right kidney appears midline and pelvic. Left kidney appears normal. No other anomalies were identified. No markers for trisomy. The cervical length appears normal. Recommendation We recommend evaluation in 6 weeks. Follow up appointment scheduled here in 6 weeks. Coding ====== Description:55872-66 Follow Up Board Saw Runner: Yessi August RDMS Physician: Denzel Edgar MD, CLARAOG Electronically signed by: Denzel Edgar MD, CLARAOG at: 14:12 us Batool Frederick MD IMG US ORDERABLES Final Result documented in this encounter Visit Diagnoses Diagnosis Intrahepatic cholestasis of in second trimester documented in this encounter Care Teams Assistant Product Manager Relationship Specialty Start Date End Date Provider, [place] [address] PCP - General 02/01/25 documented as of this encounter
--- OUTSIDE RECORDS SUMMARY | 2025-05-02 12:45 | XMS_ITS | Encounter Summary ---
Author [facility] Address [address] [place] [address] Care Team Providers Care Top Tile Decorator Name Role Phone Provider, No Known Primary Care Provider Unavail able Reason for Referral * Diagnostic Imaging (Routine) - Authorized Specialty Diagnoses / Procedures Referred By Conthafsa t Referred To Contact Radiology Diagnoses Intrahepatic cholestasis of in second trimester , unspecified gestational age Procedures [facility] Erik Edgar MD [address] [facility] [address] [place] [address] Phone: tel: fax: [facility] US PER DIAG CTR [address] [place] [address] Phone: tel: Referral ID Status Reason Start Date Expiration Date V isits Requested Visits Authorized [id number] Authorized 05/02/2025 08/01/2026 1 1 Reason for Visit * Reason Comments cholestasis Encounter Details Date Type Department Care Team (Late Contact Info) Description 05/02/2025 12:45 PM EDT Office Visit [facility] [address] [facility] [address] [place] [address] Erik Edgar MD [address] [facility] [address] [place], [place] [id number] Intrahepatic cholestasis of in second trimester (Primary [...] review. Maternal/ Medicine Follow Up Note Name: Julianna Toure : 2005 Referring Provider: Sabrina Simms DO Chief Complaint cholestasis Subjective History of Present Illness: Julianna Toure is a 20 y.o. 24w6d who [...] Ultrasound Impression: See Viewpoint Assessment and Plan Julianna Toure is a 20 y.o. 24w6d who [...] 10- to 25-fold increase. Total bilirubin levels are also increased but usually the values are less than 5 mg/dL. Alkaline phosphatase is elevated in ICP up to 4-fold, but this is not helpful for diagnosis of the disorder since alkaline phosphatase iselevated in due to production by the placenta. Recommended laboratory studies for the diagnosis of ICP include total serum bile acid levels, cholic acid, total bilirubin, transaminases, PT, PTT and INR. Once a diagnosis of ICP has been made, total bile acid levels can be followed every 2-3 weeks to guide therapy and timing of delivery. Delivery is suggested at 37 weeks' without need of an amniocentesis for lung maturity due to increased risk of mortality or after an amniocentesis for delivery prior to 37 weeks' gestation. If meconium is present at the time of amniocentesi s, delivery is indicated regardless of the lung maturity results. Delivery can proceed without an amniocentesis if the monitoring is nonreassuring. Many [...] recommended at 37 weeks gestation. Orders: - [facility]; Future 2. , unspecified gestational age - [facility]; Future 3. renal anomaly, single [...] or [facility]. Erik Edgar MD Maternal Medicine, [facility] Diagnostic [place] 05/02/2025 documented in this encounter Plan of Treatment Upcoming Encounters Date Type Department Care Team (Late st Contact Info) Description 06/13/2025 2:15 PM EDT Office Visit [facility] MATERNAL MEDICINE [address] [facility] [address] [place] [address] 06/13/2025 2:15 PM EDT Appointment [facility] PER DIAG CTR [address] [place] [address] Scheduled Orders Name Type Priority Associated Diagnoses Orde r Schedule [facility] Diagnostic [place] Imaging Routine Intrahepatic cholestasis of in second trimester , unspecified gestational age Expected: 06/13/2025, Expires: 05/02/2026 documented as of this encounter Visit Diagnoses Diagnosis Intrahepatic cholestasis of in second trimester- Primary , unspecified gestational age renal anomaly, single gestation documented in this encounter Care Teams Top Tile Decorator Relationship Specialty Start Date End Date Provider, [place] [address] PCP - General 02/01/25 documented as of this encounter
--- OUTSIDE RECORDS SUMMARY | 2025-05-06 14:41 | XMS_ITS | Clinical Summary ---
Author Organization [facility] Address [address] [place] [address] J[place]ED [place] [phone] Phone Care Team Providers Care Operational Risk Consultant Name Role Phone Unavailable Primary Care Provider Unavailabl e Allergies Active Allergy Reactions Criticality Noted Date Comments Amoxicillin-Pot Clavulanate Rash Low 03/16/20 24 Medications FLUoxetine (PROZAC) 10 mg Oral CapsuleIndicati ons:Anxiety and depression Take 1 Capsule by mouth daily. 90 Capsule 3 Active Additional Information Patient not taking.Reason: Therapy Completed, Reported on 05/14/2024 b gfaktfm-G-hwvfq acid (NEPHROCAP) 1 mg Oral Capsule Take 1 Capsule by mouth daily. Active multivitamin with folic acid (THERAGRAN) 400 mcg Oral Tablet Take 1 Tablet by mouth daily. Active phenazopyridine (PYRIDIUM) 95 mg Oral Tablet Take 95 mg by mouth daily. Active Cranberry 500 mg Oral Capsule Take by mouth. Active ursodioL (ACTIGALL) 300 mg Oral Capsule Take 300 mg by mouth 2 times daily. Active vit no.124/iron/fol ic ( VITAMIN ORAL) Take by mouth. A ctive Active Problems Problem Noted Date Diagnosed Date Abdominal pain during in second trimes ter 04/12/2025 Anxiety and depression 03/16/2024 Estimated Date of Delivery Comme nts Yes 08/16/2025 Based on Other B asis Encounters Date Type Department Care Team Description 04/12/2025 11:32 AM EDT - 04/12/2025 12:44 PM EDT Hospital Encounter [facility] [place] [address] Asael Beard MD Discharge Disposition: Home or Self Care 04/12/2025 Travel from Last 3 Months Immunizations Immunization Administration [...] 07/20/2024 MMR 05/09/2009,09/01/2006 Meningococcal Oligosaccharide Conjugate 05/17/20 16 Pfizer SARS-CoV-2 Vaccine Tr is-Sucrose 12+ Years ([place]in[place] Cap) 06/05/2022,05/11/2022 Pneumococcal Conjugate, Unsp ecified Formulation 05/05/2006,2005,2005 Tdap 05/11/2022,05/17/2016 Varicella 05/17/2016,05/05/2006 meningococcal conjugate quad rivalent, MenACWY-TT (MCV4) 06/08/2022 Surgical History Surgery Date Site/Laterality Comments WISDOM TOOTH EXTRACTION 10/17/2018 - 10/16/2019 KNEE SURGERY in fourth grade Medical History Medical History Date Comments Cholestasis during in second trimester 2024 Family History Medical History Relation Name Comments [...] Smokeless Tobacco: Never Tobacco Cessation:Counseling Given: No Alcohol Use Standard Drinks/Week Comments Never 0 [...] Sexual Orientation Not on file Obstetrics History Para Term AB IAB SAB Ectopic Multiple Livin g Live Births 1 Date Outcome GA Total Labor Labor/2nd/3rd Weight Sex Type Anes PTL Stacy A1 A5 Name Clin Current Summary Episode Dates Number of Fetuses Estimated Date of Delivery 04/12/2025 - Present (05/06/2025) 08/16/2025 (set by Dasha Maravilla, LUIS ALBERTO on 04/12/2025 based on Other Basis) Dating Summary Based On TAHIR GA Diff Other Basis 08/16/2025 Working Last Menstrual Period on 05/17/2024 (Approximate ) 02/21/2025 +25w1d Vitals Pregravid Weight Height TWG (As of 05/06/2025) Pregrav id BMI 5' 5 (1.651 m) Date GA Fund Present FHR Mvmt BP Weight Edema Alb Glu Ket Dil/ Eff/Sta 22w0d Inpatient data not displayed here. See encounter summary. Notes Progress Notes - Hospital En counter - 04/12/2025 - GA:22w0d 04/12/2025 - 22w0d - Blank Goldman, RN Discharge order received. Instructions, precautions and follow up reviewed with patient who verbalized understanding. Discharged to home ambulatory. After completion of the Medical Screening Evaluation, it has been determined that a medical emergency does not exist and the patient is not in active labor, and therefore the patient may be discharged home. Last Filed Vital Signs Vital Sign Reading Time Taken Comments Blood Pressure 111/71 04/12/2025 11:56 AM EDT Pulse 95 04/12/2025 11:56 AM EDT Temperature 36.7 C (98 F) 04/12/2025 11:54 AM EDT Respiratory Rate 18 04/12/2025 11:54 AM EDT Oxygen Saturation 100% 06/08/2024 4:12 PM EDT Inhaled Oxygen Concentration - - Weight 60.8 kg (134 lb) 04/12/2025 11:54 AM EDT Height 165.1 cm (5' 5 ) 04/12/2025 11:54 AM EDT Body Mass Index 22.3 04/12/2025 11:54 AM EDT Plan of Treatment Health Maintenance Due Date Last Done Comments HPV (1 - 3-dose series) 2020 Meningococcal B Vaccine (1 of 2 - Standard) 2021 COVID-19 Vaccine (3 - season) 2024 06/05/2022, 05/11/2022 Annual Wellness Exam 03/16/2025 03/16/2024 Influenza Vaccine (#1) 2025 , 07/22/2020, 08/22/2019, Additional history exists RSV or 60+ (1 - Risk 1-dose series) 06/21/2025 DTaP/TDaP/Td (8 - Td or Tdap) 05/11/2032 05/11/2022, 05/17/2016, 05/09/2009, Additional history exists Hepatitis B Vaccine Completed 05/11/2022, 2005, 2005, Additional history exists Pneumococcal Vaccine 0-49 Aged Out No longer eligible based on patient's age to complete this topic Goals Goal Patient Goal Type Associated Problems Recent Progress Patient-Stated? Author Maintain a healthy diet, exercise regularly and maintain an ideal body weight General Orquidea Bueno, [employer] Insurance [employer] PPO Member Subscriber Plan / Payer (Ef fective 2018-Present) Name:Julianna Toure Relation to Subscriber:Self Name:Julianna Toure Payer ID:[id number] (NAIC) Type:Not on file Address: [address] [place] [id number] [place] O Member Subscriber Plan / Payer (Ef fective 2018-Present) Name:Julianna oTure Relation to Subscriber:Self Name:Julianna Toure Payer ID:[id number] (NAIC) Type:Not on file Address: [address] [place] [id number]
--- OUTSIDE RECORDS SUMMARY | 2025-05-06 14:41 | XMS_ITS | Encounter Summary ---
[facility] Address [address] [place] [address] Care Team Providers Care Torts Law Professor Name Role Phone Provider, No Known Primary Care Provider Unavail able Encounter Details Date Type Department Care Team (Latest Contact Info) Description 03/21/2025 Travel Social History Tobacco Use Types Packs/Day Years [...] on file documented as of this encounter Plan of Treatment Upcoming Encounters Date Type Department Care Team (Late st Contact Info) Description 06/13/2025 2:15 PM EDT Office Visit [facility] [address] [facility] [address] [place] [address] 06/13/2025 2:15 PM EDT Appointment [facility] PER [facility]AG CTR [address] [facility] [place] [address] documented as of this encounter Visit Diagnoses Not on filedocumented in this encounter Care Teams Torts Law Professor Relationship Specialty Start Date End Date Provider, No Known [facility] [place] [address] PCP - General 02/01/25 documented as of this encounter
--- OUTSIDE RECORDS SUMMARY | 2025-05-06 14:41 | XMS_ITS | Clinical Summary ---
[facility] Organization [facility] Address [address] [place] [address] Care Team Providers Care Encoding Machine Operator Name Role Phone Provider, No Known Primary Care Provider Unavail able Allergies Active Allergy Reactions Criticality Noted Date Comments Amoxicillin-Pot Clavulanate Rash Low 08/17/20 10 Medications ursodiol (ACTIGALL) 300 MG capsule Take 1 capsule by mouth 2 (Two) Times a Day. 03/19/2025 Active Vzfypnlh-Hmb-Uz -FA ( 1 + IRON PO) Take 1 tablet by mouth Daily. 11/27/2024 Active Active Problems Problem Noted Date Diagnosed Date 05/02/2025 renal anomaly, single gestation 05/02/2025 Assessment & Plan (05/02/2025 1:30 PM EDT): Patient has a family history of renal agenesis in both father of this patient and other relatives. Original scans in our office demonstrated clear left kidney that appeared normal and a suspicion of a right kidney. Ultrasound today demonstrates a probable right kidney that is midline and pelvic. As left kidney appears entirely normal and amniotic fluid volume is normal it is unlikely that this will necessitate any changes in normal obstetric care. We would recommend an ultrasound of the system after . Intrahepatic cholestasis of Assessment & Plan (05/02/2025 1:14 PM EDT): Intrahepatic cholestasis of (ICP) is a reversible type of hormonally influenced cholestasis. Approximately 0.5% of pregnancies in the [place] are affected by this condition. It most often presents in the late second or early third trimester of in individuals who are genetically predisposed. It is characterized by generalized itching, often commencing with pruritus of the palms of the hands and soles of the [...] can range from 2-11%. Thus, many would advocate delivery at 37 weeks. A possible explanation for the risk of an IUFD is taurocholate crossing into the compartment and causing arrhythmias and decreased cardiac contractility. Steatorrhea and vitamin K deficiency may also occur due to fat malabsorption. If the vitamin K deficiency is not corrected by the time of delivery, a hemorrhage may ensue. Multiple laboratory abnormalities can be seen in ICP. The most specific and sensitive marker of ICP is total serum bile acid levels greater than 10 micromol/L. The elevation of aminotransferases associated with ICP varies from a mild increase to a 10- to 25-fold increase. Total bilirubin levels are also increased but usually the values are less than 5 mg/dL. Alkaline phosphatase is elevated in ICP up to 4- fold, but this is not helpful for diagnosis [...] is generally recommended at 37 weeks gestation. Estimated Date of Delivery Comme nts Yes 08/16/2025 Date entered dae or to episode creation Encounters Date Type Department Care Team Description 05/02/2025 12:45 PM EDT - 05/02/2025 11:59 PM EDT Hospital Encounter [facility] US PER DIAG CTR [address] [place] [phone] Batool Frederick MD Intrahepatic cholestasis of in second trimester Discharge Disposition: Home or Self Care 05/02/2025 12:45 PM EDT Office Visit [facility] [address] [facility] [address] [place] [phone] Erik Edgar MD Intrahepatic cholestasis of in second trimester (Primary Dx); , unspecified gestational age; renal anomaly, single gestation 05/02/2025 Travel 03/21/2025 12:30 PM EDT Office Visit [facility] [address] [facility] [address] [place] [address] Batool Frederick MD Intrahepatic cholestasis of in second trimester (Primary Dx) 03/21/2025 12:28 PM EDT - 03/21/2025 11:59 PM EDT Hospital Encounter [facility] PER DIAG CTR [address] [place] [address] Sabrina Simms DO Intrahepatic cholestasis of , antepartum; , unspecified gestational age Discharge Disposition: Home or Self Care 03/21/2025 Travel from Last 3 Months Family History Medical History Relation Name Comments Hypertension Father Hypertension Mother Relation Name Status Comments Father Alive Mother Alive Social History Tobacco Use Types Packs/Day Years [...] on file Sexual Orientation Not on file Last Filed Vital Signs Vital Sign Reading Time Taken Comments Blood Pressure 106/67 05/02/2025 1:04 PM EDT Pulse - - Temperature - - Respiratory Rate - - Oxygen Saturation - - Inhaled Oxygen Concentration - - Weight 63.5 kg (140 lb) 05/02/2025 1:04 PM EDT Height 168.9 cm (5' 6.5 ) 03/21/2025 12:51 PM ED T Body Mass Index 22.26 03/21/2025 12:51 PM EDT Plan of Treatment Upcoming Encounters Date Type Department Care Team (Late st Contact Info) Description 06/13/2025 2:15 PM EDT Office Visit [facility] MATERNAL MEDICINE [address] [place] [address] 06/13/2025 2:15 PM EDT Appointment [facility] PER DIAG CTR [address] [place] [address] Health Maintenance Due Date Last Done Comments HPV VACCINES (1 - 3-dose series) 2020 MENINGOCOCCAL B VACCINE (1 of 2 - Standard) 2021 COVID-19 Vaccine (3 - season) 2024 06/05/2022, 05/11/2022 ANNUAL PHYSICAL 02/01/2025 CHLAMYDIA SCREENING 02/01/2025 RSV Vaccine - Adults (1 - Risk 1-dose series) 06/21/2025 INFLUENZA VACCINE 07/17/2025 07/20/2024, , 08/22/2019, Additional history exists TDAP/TD VACCINES (3 - Td or Tdap) 05/11/2032 05/11/2022, 05/17/2016 Pneumococcal Vaccine 0-49 Aged Out 2005, 2005, 2005 No longer eligible based on patient's age to complete this topic MENINGOCOCCAL VACCINE Completed 06/08/2022, 016 HEPATITIS C SCREENING Completed 12/31/2024 , 12/31/2024, 12/21/2024 Procedures Procedure Name Priority Date/Time Associated Diagnosis Comments [facility] Routine 05/02/2025 1:30 PM EDT Intrahepatic cholestasis of in second trimester [facility] Routine 03/21/2025 1:43 PM EDT Intrahepatic cholestasis of , antepartum , unspecified gestational age from Last 3 Months Results * [facility] (05/02/2025 1:30 PM EDT) Only the most recent of2 resultswithin the time period is included. Anatomical Region Laterality Modality Ultrasound 05/02/2025 1:08 PM EDT Narrative 05/02/2025 2:12 PM EDT PAT NAME: BENJY TOURE [facility] REC#: [id number] DA: [id number] PAT GEND: F PAT TYPE: O EXAM RODRIGO: [id number] REF PHYS SABRINA SIMMS Comparison Studies The [...] EFW (oz) 13 oz EFW by: Hadlock ([id number]) Extended Cav. septi pel. tr 4.8 mm Java Technical Manager 3.6 mm CM 6.1 mm 50% Nicolaides [...] Normal Heart / Thorax 3-vessel view: Normal 1-ytvtti-vusqtgv view: normal Stomach: Appears normal Bladder: Appears [...] here in 6 weeks. Coding ====== Description: 94266-07 Follow Up Vein Pumper: Yessi August RDMS Physician: Denzel Edgar MD, FACOG Electronically signed by: Denzel Edgar MD, FACOG at: 14:12 Procedure Note Erik Edgar MD - 05/02/2025 PAT NAME: BENJY TOURE MED REC#: [id number] DA: [id number] PAT GEND: F PAT TYPE: O EXAM RODRIGO: [id number] REF PHYS SABRINA SIMMS Comparison Studies The findings of this study are compared to the prior ultrasound studydated 03/21/25 Patient Status Outpatient Indication ======== Cholestasis. Family hx renal agenesis. Maternal Assessment Lwqmcw853 cm Height (ft)5 ft Height (in)6 in Uwdzjc24 kg Weight (lb)140 lb BMI22.60 kg/m Method ======= Transabdominal ultrasound examination. View: Adequate view ========= Wallace . Number of fetuses: 1 Dating ====== Method of dating:based on stated TAHIR GA by prior [id number] w + 6 d TAHIR by prior assessment:08/16/2025 Ultrasound examination on:05/02/2025 GA by U/S based upon:AC, BPD, Femur, HC GA by U/S25 w + 6 d TAHIR by U/S:08/09/2025 Previous dating:based on stated TAHIR, selected on 03/21/2025 Agreed TAHIR of previous datin08/16/2025 Assigned:based on stated TAHIR, selected on 05/02/2025 Assigned GA24 w + 6 d Assigned TAHIR:08/16/2025 [id number] d Biometry Standard BPD63.2 mm 25w 4d 69% Hadlock OFD88.0 mm 28w 2d >99% Lisa HC246.1 mm 26w 5d 89% Hadlock Cerebellum tr30.4 mm 26w 2d 91% Hill AC211.2 mm 25w 5d 66% Hadlock Femur45.9 mm 25w 2d 48% Hadlock Gklczin94.3 mm 26w 2d 86% Lisa HC / AC1.17 HOT869 g 25w 2d 72% Hadlock EFW (lb)1 lb EFW (oz)13 oz EFW by:Hadlock ([id number]) Extended Cav. septi pel. tr4.8 mm Vp3.6 mm CM6.1 mm 50% Nicolaides Head / Face / Neck Cephalic index0.72 2% Nicolaides Extremities / Bony Struc FL / BPD0.73 FL / HC0.19 FL / AC0.22 Other Structures BVL893 bpm General Evaluation Cardiac activity present. FHR 144 bpm. movements present. Presentation cephalic. Placenta Placental site: anterior. Amniotic fluid Amount of AF: normal. MVP 6.6 cm. Anatomy Cranium:Normal Cavum septi pellucidi:Normal Cerebellum:Normal Cisterna magna:Normal Head / Neck Rt lateral ventricle:Normal Lt lateral ventricle:Normal Lips:Normal Profile:Normal Nose:Normal 4-chamber view:Appears normal RVOT view:Normal LVOT view:Normal Heart / Thorax 3-vessel view:Normal 7-mxxtvz-jhpjhkm view:normal Stomach:Appears normal Bladder:Appears normal Abdomen Rt kidney:visualized Rt kidney:pelvic kidney, posterior to the bladder Lt kidney:visualized Lt kidney:3.5 mm , dilatation Gender:male Wants to know gender:yes Maternal Structures Uterus / Cervix Approach:Transabdominal Cervical goiqzs45.3 mm Consultation / Office Visit Office note to follow Impression ========= Size consistent with dates. Right kidney appears midline and pelvic. Left kidney appears normal. No other anomalies were identified. No markers for trisomy. The cervical length appears normal. Recommendation We recommend evaluation in 6 weeks. Follow up appointment scheduled here in 6 weeks. Coding ====== Description:[id number] Follow Up Vein Pumper: Yessi August RDMS Physician: Denzel Edgar MD, FACOG Electronically signed by: Denzel Edgar MD, FACOG at: 14:12 us Batool Frederick MD IMG US ORDERABLES Final Result from Last 3 Months Insurance [facility] PPO Care Teams Encoding Machine Operator Relationship Specialty Start Date End Date Provider, No Known [facility] [place] [address] PCP - General 02/01/25
--- OUTSIDE RECORDS SUMMARY | 2025-05-06 14:41 | XMS_ITS | Encounter Summary ---
Author Organization [facility] [place] [address] Care Team Providers Care Sewing Machine Repairer Name Role Phone Unavailable Primary Care Provider Unavailabl e Encounter Details Date Type Department Care Team (Latest Contact Info) Description 04/12/2025 Travel Social History Tobacco Use Types Packs/Day [...] on file documented as of this encounter Functional Status * Cognitive and Functional Status Question Answer Date of Assessment Author Is the person deaf or does he/she have serious difficulty hearing? No 04/12/2025 12:33 PM EDT Sam Castillo RN Is the person blind or does he/she have serious difficulty seeing even when wearing glasses? No 04/12/2025 12:33 PM EDT Sam Castillo RN Does this person have seriou s difficulty walking or climbing stairs? No 04/12/2025 12:33 PM EDT Sam Castillo RN Does this person have difficulty dressing or bathing? No 04/12/2025 12:33 PM EDT Sam Castillo RN * Alcohol Screening Score Answer Date of Assessment Author 0 04/12/2025 11:51 AM EDSabrina Chamberlain RN * Drug Screening Score Answer Date of Assessment Author 0 04/12/2025 11:51 AM Sabrina Souza RN * Question Answer Date of Assessment Author How often do you have a drin k containing alcohol? 0 04/12/2025 11:51 AM aSbrina Souza RN How many drinks containing alcohol [...] 04/12/2025 11:51 AM Sabrina Souza RN * [place] Suicide Severity Rating Scale (Q shift for [...] Entry Date Author No 04/12/2025 12:33 PM Blank Zaragoza RN documented in this encounter Plan of Treatment Not on file documented as of this encounter Goals Goal Patient Goal Type Associated Problems Recent Progress Patient-Stated? Author Maintain a healthy diet, exercise regularly and maintain an ideal body weight General No Orquidea Vasques APRN documented as of this encounter Visit Diagnoses Not on filedocumented in this encounter
--- OUTSIDE RECORDS SUMMARY | 2025-05-06 14:41 | XMS_ITS | Encounter Summary ---
[facility] Address [address] [place] [address] Care Team Providers Care Egg Breaking Machine Operator Name Role Phone Provider, No Known Primary Care Provider Unavail able Encounter Details Date Type Department Care Team (Latest Contact Info) Description 05/02/2025 Travel Social History Tobacco Use Types Packs/Day [...] Description 06/13/2025 2:15 PM EDT Office Visit [facility] [address] [facility] [address] [place] [address] 06/13/2025 2:15 PM EDT Appointment [facility] PER DIAG CTR [address] [facility] [place] [address] documented as of this encounter Visit Diagnoses Not on filedocumented in this encounter Care Teams Egg Breaking Machine Operator Relationship Specialty Start Date End Date Provider, No Known [facility] [place] [address] PCP - General 02/01/25 documented as of this encounter
== END 2025-05-06 23:59 | disposition home or self-care (01) ==
LOC: LAB 14:39
PROVIDERS: Visit Provider Nurse Practitioner Family
DX: O26 Maternal care for other conditions predominantly related to pregnancy (principal); Z3A.00 Weeks of gestation of pregnancy not specified

== ENCOUNTER 2025-05-27 13:16 | Outpatient (CLI) | payer BC, SELFPAY ==
--- OUTSIDE RECORDS SUMMARY | 2025-04-12 11:32 | XMS_ITS | Encounter Summary ---
Author Organization [place] [address] Care Team Providers Care Phone Operator Name Role Phone Unavailable Primary Care Provider Unavailabl e Reason for Visit * Reason Comments Abdominal Cramping Encounter Details Date Type Department Care Team (Latest Contact Info) Description 04/12/2025 11:32 AM EDT - 04/12/2025 12:44 PM EDT Hospital Encounter EDG [facility] [place] [place] [address] Asael Beard MD [address] [place] [address] [place] [address] Discharge Disposition: Home or Self Care Social History Tobacco Use Types Packs/Day Years Used Date Smoking Tobacco: Never Passive Smoke Exposure: Never Smokeless Tobacco: Never Alcohol Use Standard Drinks/Week Comments Never 0 (1 standard drink = 0.6 oz pur e alcohol) PHQ-2 Answer Date Recorded PHQ-2 Total Score 0 03/16/2024 Estimated Date of Delivery Comme nts Yes 08/16/2025 Based on Other B asis Sex and Gender Information Value Date Recorded Sex Assigned at Not on file Legal Sex Female 3:45 PM EDT Gender Identity Not on file Sexual Orientation Not on file documented as of this encounter Last Filed Vital Signs Vital Sign Reading Time Taken Comments Blood Pressure 111/71 04/12/2025 11:56 AM EDT Pulse 95 04/12/2025 11:56 AM EDT Temperature 36.7 C (98 F) 04/12/2025 11:54 AM EDT Respiratory Rate 18 04/12/2025 11:54 AM EDT Oxygen Saturation - - Inhaled Oxygen Concentration - - Weight 60.8 kg (134 lb) 04/12/2025 11:54 AM EDT Height 165.1 cm (5' 5 ) 04/12/2025 11:54 AM EDT Body Mass Index 22.3 04/12/2025 11:54 AM EDT documented in this encounter Functional Status * Cognitive and Functional Status Question Answer Date of Assessment Author Is the person deaf or does he/she have serious difficulty hearing? No 04/12/2025 12:33 PM Sam Bello RN Is the person blind or does he/she have serious difficulty seeing even when wearing glasses? No 04/12/2025 12:33 PM Sam Bello RN Does this person have seriou s difficulty walking or climbing stairs? No 04/12/2025 12:33 PM Sam Bello RN Does this person have difficulty dressing or bathing? No 04/12/2025 12:33 PM Sam Bello RN * Alcohol Screening Score Answer Date of Assessment Author 0 04/12/2025 11:51 AM Sabrina Souza RN * Drug Screening Score Answer Date of Assessment Author 0 04/12/2025 11:51 AM Sabrina Souza RN * Question Answer Date of Assessment Author How often do you have a drin k containing alcohol? 0 04/12/2025 11:51 AM Sabrina Souza RN How many drinks containing alcohol do you have on a typical day when you are drinking? 0 04/12/2025 11:51 AM Negin Souza RN How often do you have six or more drinks on one occasion? 0 04/12/2025 11:51 AM Marie Souza RN AUDIT-C to Determine Rows 4-10 0 04/12/2025 11:51 AM Sabrina Souza RN * Is the person deaf or does he/she have serious difficulty hearing? Answer Date of Assessment Author No 04/12/2025 12:33 PM Blank Zaragoza RN * Is the person blind or does he/she have serious difficulty seeing even when wearing glasses? Answer Date of Assessment Author No 04/12/2025 12:33 PM Blank Zaragoza RN * Does this person have serious difficulty walking or climbing stairs? Answer Date of Assessment Author No 04/12/2025 12:33 PM Blank Zaragoza RN * Does this person have difficulty dressing or bathing? Answer Date of Assessment Author No 04/12/2025 12:33 PM Blank Zaragoza RN * Because of a physical, mental or emotional condition, does this person have difficulty doing errands alone such as visiting a doctor's office or shopping? Answer Date of Assessment Author No 04/12/2025 12:33 PM Blank Zaragoza RN * Suicide Severity Rating Answer Date of Assessment Author No Risk 04/12/2025 11:51 AM Sabrina Souza RN * [place] Suicide Severity Rating Scale (Q shift for moderate and high) Question Answer Date of Assessment Author 1. In the past month, have y ou wished you were or wished you could go to sleep and not wake up? 0 04/12/2025 11:51 AM Sabrina Souza RN 2. In the past month, have y ou actually had any thoughts of killing yourself? (If no, skip to question 6) 0 04/12/2025 11:51 AM Sabrina Souza RN 6. Have you ever done anythi ng, started to do anything, or prepared to do anything to end your life? 0 04/12/2025 11:51 AM Sabrina Souza RN documented as of this encounter Mental Status * Cognitive and Functional Status Question Answer Entry Date Author Because of a physical, menta l or emotional condition, does this person have difficulty doing errands alone such as visiting a doctor's office or shopping? No 04/12/2025 12:33 PM Sam Bello RN Because of a physical, menta l or emotional condition, does this person have serious difficulty concentrating, remembering or making decisions? No 04/12/2025 12:33 PM Sam Bello RN * Because of a physical, mental or emotional condition, does this person have serious difficulty concentrating, remembering or making decisions? Answer Entry Date Author No 04/12/2025 12:33 PM EDT Blank Abbasi RN documented in this encounter Discharge Instructions * Discharge Instructions* Blank Castillo RN - 04/12/2025 12:33 PM EDT [facility] Movement Record (Kick Count) In order to monitor your 's well being, you have been asked to keep a record of the baby's movements. Consistent movement is one of the most important indicators of health. The instructions for this area are as follows: Sit or lie down on your left side for 30 minutes three times a day, morning, afternoon and evening. Count and write down as you go the number of movements felt in each time period. After the evening count, add up the numbers of all three times and write it in the total box. If the baby does not move in the first 30 minutes, the baby may be sleeping so continue the exam for another 30 minutes. You might want to try drinking some cool juice or gently rub the abdomen to stimulate the baby. You could also eat ice, celery or an apple to help. Bring the Kick Count Sheet with you if you come to the hospital and when you come for your visits. Call immediately if: The movement does not add up to 6 in one hour as seen with The total for the day is less than half of the total of the day before as seen with * For example: Morning Afternoon Evening Total Day 1 25 30 23 78 Day 2 4 12 8 30* If you have any questions or problems, please call your Physician???s office for further instructions. [facility] Movement Record DATE MORNING AFTERNOON EVENING TOTAL Home Undelivered Discharge Instructions After Discharge Orders: No future appointments. Follow up at your next scheduled office appointment or sooner as needed. Diet: normal diet as tolerated. Make sure to drink at least 6-8 large glasses of water daily. Rest: normal activity as tolerated Other instructions: Do kick counts once a day on your baby. Choose the time of day your baby is most active. Get in a comfortable lying or sitting position and time how long it takes to feel 10 kicks, twists, turns, swishes, or rolls. Call your physician or confectionery laboratory manager if there have not been 10 kicks in 2 hours Call physician or confectionery laboratory manager, return to Labor and Delivery, call 911, or go to the nearest Emergency Room if: increased leakage or fluid, contractions more than 6 per 1 hour, decreased movement, persistent low back pain or cramping, bleeding from vaginal area, difficulty urinating, pain with urination, difficulty breathing, new calf pain, persistent headache or vision change documented in this encounter Medications at Time of Discharge b pazmbqq-X-kadcn acid (NEPHROCAP) 1 mg Oral Capsule Take 1 Capsule by mouth daily. Cranberry 500 mg Oral Capsule Take by mouth. FLUoxetine (PROZAC) 10 mg Oral CapsuleIndication s:Anxiety and depression Take 1 Capsule by mouth daily. 90 Capsule 3 03/16/2024 multivitamin with folic acid (THERAGRAN) 400 mcg Oral Tablet Take 1 Tablet by mouth daily. phenazopyridine (PYRIDIUM) 95 mg Oral Tablet Take 95 mg by mouth daily. vit no.124/iron/folic ( VITAMIN ORAL) Take by mouth. ursodioL (ACTIGALL) 300 mg Oral Capsule Take 300 mg by mouth 2 times daily. documented as of this encounter Discharge Disposition Disposition Code Departure Means Destination Comment s Home or Self Senior Care documented in this encounter Progress Notes * Blank Castillo RN - 04/12/2025 12:43 PM EDT Discharge order received. Instructions, precautions and follow up reviewed with patient who verbalized understanding. Discharged to home ambulatory. After completion of the Medical Screening Evaluation, it has been determined that a medical emergency does not exist and the patient is not in active labor, and therefore the patient may be discharged home. documented in this encounter Nursing Notes * Steff, Jolene Villalobos MD - 04/12/2025 12:00 PM EDT [facility] OB Triage Progress Note S: Pt is a 19 y.o. at 22w0d with Estimated Date of Delivery: 08/16/25 presents to triage c/o Rabdominal pain that was persistent for about 30m, and has since subsided since being in triage. 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 No loss of fluid. No contractions or pelvic pain No other complaints OB History 1 Para Term AB Living SAB IAB Ectopic Multiple Live Births Prior to Admission medications Medication Sig Start Date End Date Last Dose Authorizing Provider vit no.124/iron/folic ( VITAMIN ORAL) Take by mouth. Taking Provider, Historical ursodioL (ACTIGALL) 300 mg Oral Capsule Take 300 mg by mouth 2 times daily. 04/11/2025 Provider, Historical b xycmdrr-V-qudcc acid (NEPHROCAP) 1 mg Oral Capsule Take 1 Capsule by mouth daily. Patient not taking: Reported on 04/12/2025 Not Taking Provider, Historical Cranberry 500 mg Oral Capsule Take by mouth. Provider, Historical FLUoxetine (PROZAC) 10 mg Oral Capsule Take 1 Capsule by mouth daily. Patient not taking: Reported on 05/14/2024 03/16/24 Maryam Ritter APRN multivitamin with folic acid (THERAGRAN) 400 mcg Oral Tablet Take 1 Tablet by mouth daily. Patient not taking: Reported on 04/12/2025 Not Taking Provider, Historical phenazopyridine (PYRIDIUM) 95 mg Oral Tablet Take 95 mg by mouth daily. Patient not taking: Reported on 05/04/2024 Provider, Historical Past Medical History: Diagnosis Date Cholestasis during in second trimester 2024 Past Surgical History: Procedure Laterality Date KNEE SURGERY in fourth grade WISDOM TOOTH EXTRACTION 2019 reports that she has never smoked. She has never been exposed to tobacco smoke. She has never used smokeless tobacco. She reports that she does not drink alcohol and does not use drugs. Family History Problem Relation Age of Onset Diabetes Mother Hypertension Mother Hypertension Father Diabetes Maternal Aunt Diabetes Maternal Grandmother Heart Attack Paternal Grandmother Mental Illness Paternal Grandfather Allergies Allergen Reactions Augmentin [Amoxicillin-Pot Clavulanate] Rash ROS: No vaginal bleeding, leakage of fluid. Patient reports good movement. All other ROS reviewed and reported as negative. O: Temp 98 ??F (36.7 ??C) (Oral) Resp 18 Ht 5' 5 (1.651 m) Wt 134 lb (60.8 kg) LMP 05/17/2024 (Approximate) BMI 22.30 kg/m?? Gen: alert, appears stated age, and cooperative Abd: soft, gravid; FHT present, no TTP across abdomen including RUQ Ext: Non-edematous BLE Psych: A & Ox3; judgement and insight intact; memory both undercover agent and short term intact. Moodand affect are appropriate. Heart Tones: 140 bpm Cervical exam: Not indicated Speculum exam: Not indicated A/P: 19 y.o. 22w0d who presents with R sided abdominal pain that was persistent for about 30m,and has since subsided since being in triage. FHT present at 140 No TTP at RUQ Do not suspect GB pathology at this time Suspect Round ligament pain, rec'd tylenol and heating packs PRN At this time there is no medical emergency or active labor, pt is safe to dc home Return precautions described in detail Pt agreeable to dc plan. All questions answered Pt dc'd home in stable condition Cosigned by Asael Beard MD at 04/12/2025 4:46 PM EDT Associated attestation - Asael Beard MD - 04/12/2025 4:46 PM EDT Patient discussed with resident team. I have seen and examined the patient myself and agree with the CC, HPI, past histories, and physical exam presented in their documentation. I also agree with assessment and plan as written. Pain improved after short while in triage. Possible gallbladder etiology. If pain returns, especially if associated with po intake, would consider RUQ ultrasound. documented in this encounter Plan of Treatment Not on file documented as of this encounter Goals Goal Patient Goal Type Associated Problems Recent Progress Patient-Stated? 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 vit no.124/iron/folic ( VITAMIN ORAL) Take by mouth. ursodioL (ACTIGALL) 300 mg Oral Capsule Take 300 mg by mouth 2 times daily. added in this encounter Orders Discharge Count Last Ordered Date First Orde red Date DISCHARGE PATIENT 1 04/12/2025 documented in this encounter
--- OUTSIDE RECORDS SUMMARY | 2025-05-02 12:45 | XMS_ITS | Encounter Summary ---
Author Organization [facility] Address [address] [place] [address] Care Team Providers Care Powdered Sugar Supervisor Name Role Phone Provider, No Known Primary Care Provider Unavail able Reason for Referral * Diagnostic Imaging (Routine) - Closed Specialty Diagnoses / Procedures Referred By Kb marino Referred To Contact Radiology Diagnoses Intrahepatic cholestasis of in second trimester Procedures [facility] Diagnostic [place] Batool Frederick MD [address] [address] Phone: tel: fax: Referral ID Status Reason Start Date Expiration Date Visits Re quested Visits Authorized Closed 03/27/2025 06/26/2026 1 1 Reason for Visit * Diagnostic Imaging (Routine) - Closed Specialty Diagnoses / Procedures Referred By Kb marino Referred To Contact Radiology Diagnoses Intrahepatic cholestasis of in second trimester Procedures [facility] Diagnostic [place] Batool Frederick MD [address] [place] [id number] Phone: tel: fax: Referral ID Status Reason Start Date Expiration Date Visits Re quested Visits Authorized Closed 03/27/2025 06/26/2026 1 1 Encounter Details Date Type Department Care Team (Late st Contact Info) Description 05/02/2025 12:45 PM EDT - 05/02/2025 11:59 PM EDT Hospital Encounter [facility] US PER DIAG [facility] [address] [place] [phone] Batool Frederick MD [address] [facility] [address] [place] [address] Intrahepatic cholestasis of in second trimester Discharge [...] this encounter Medications at Time of Discharge Eogpiyyl-Qik-Cr-F A ( 1 + IRON PO) Take 1 tablet by mouth Daily. 11/27/2024 ursodiol (ACTIGALL) 300 MG capsule Take 1 capsule by mouth 2 (Two) Times a Day. 03/19/2025 documented as of this encounter Plan of Treatment Upcoming Encounters Date Type Department Care Team (Late st Contact Info) Description 06/13/2025 2:15 PM EDT Office Visit [facility]IC[facility] [address] [facility] [address] [place] [phone] 06/13/2025 2:15 PM EDT Appointment [facility] US PER [facility]AG [facility] [address] [facility] [place] [phone] documented as of this encounter Procedures Procedure Name Priority Date/Time Associated Diagnosis Comments [facility] Routine 05/02/2025 1:30 PM EDT Intrahepatic cholestasis of in second trimester documented in this encounter Results * [facility] (05/02/2025 1:30 PM EDT) Anatomical Region Laterality Modality Ultrasound 05/02/2025 1:08 PM EDT Narrative 05/02/2025 2:12 PM EDT PAT NAME: [facility] REC#: [id number] DA: [id number] PAT GEND: F PAT TYPE: O EXAM RODRIGO: [id number] REF PHYS JENIFER CHRISTIANSON Comparison Studies The [...] EFW (oz) 13 oz EFW by: Hadlock ([id number]) Extended Cav. septi pel. tr 4.8 mm Climatology Teacher 3.6 mm CM 6.1 mm 50% Nicolaides [...] Normal Heart / Thorax 3-vessel view: Normal 3-yqbkbr-bvvlfuy view: normal Stomach: Appears normal Bladder: Appears [...] here in 6 weeks. Coding ====== Description: [id number] Follow Up Tub Wash Operator: Yessi August RDMS Physician: Denzel Edgar MD, FACOG Electronically signed by: Denzel Edgar MD, FACOG at: 14:12 Procedure Note Erik Edgar MD - 05/02/2025 PAT NAME: [facility]ENJY [facility] REC#: [id number] DA: 2005 PAT GEND: F PAT TYPE: O EXAM RODRIGO: [id number] REF PHYS JENIFER CHRISTIANSON Comparison Studies The findings of this study are compared to the prior ultrasound studydated 03/21/25 Patient Status Outpatient Indication ======== Cholestasis. Family hx renal agenesis. Maternal Assessment Zaatii521 cm Height (ft)5 ft Height (in)6 in Vktnvt55 kg Weight (lb)140 lb BMI22.60 kg/m Method ======= Transabdominal ultrasound examination. View: Adequate view ========= Wallace . Number of fetuses: 1 Dating ====== Method of dating:based on stated TAHIR GA by prior [id number] w + 6 d TAHIR by prior assessment:08/16/2025 Ultrasound examination on:05/02/2025 GA by U/S based upon:AC, BPD, Femur, HC GA by U/S25 w + 6 d TAHIR by U/S:08/09/2025 Previous dating:based on stated TAHIR, selected on 03/21/2025 Agreed TAHIR of previous datin08/16/2025 Assigned:based on stated TAHIR, selected on 05/02/2025 Assigned GA24 w + 6 d Assigned TAHIR:08/16/2025 [id number] d Biometry Standard BPD63.2 mm 25w 4d 69% Hadlock OFD88.0 mm 28w 2d >99% Lisa HC246.1 mm 26w 5d 89% Hadlock Cerebellum tr30.4 mm 26w 2d 91% Hill AC211.2 mm 25w 5d 66% Hadlock Femur45.9 mm 25w 2d 48% Hadlock Qihartu13.3 mm 26w 2d 86% Lisa HC / AC1.17 ZIJ643 g 25w 2d 72% Hadlock EFW (lb)1 lb EFW (oz)13 oz EFW by:Hadlock (PWP-DP-CZ-FL) Extended Cav. septi pel. tr4.8 mm Vp3.6 mm CM6.1 mm 50% Nicolaides Head / Face / Neck Cephalic index0.72 2% Nicolaides Extremities / Bony Struc FL / BPD0.73 FL / HC0.19 FL / AC0.22 Other Structures MRS612 bpm General Evaluation Cardiac activity present. FHR 144 bpm. movements present. Presentation cephalic. Placenta Placental site: anterior. Amniotic fluid Amount of AF: normal. MVP 6.6 cm. Anatomy Cranium:Normal Cavum septi pellucidi:Normal Cerebellum:Normal Cisterna magna:Normal Head / Neck Rt lateral ventricle:Normal Lt lateral ventricle:Normal Lips:Normal Profile:Normal Nose:Normal 4-chamber view:Appears normal RVOT view:Normal LVOT view:Normal Heart / Thorax 3-vessel view:Normal 0-ikpjaw-hevxblf view:normal Stomach:Appears normal Bladder:Appears normal Abdomen Rt kidney:visualized Rt kidney:pelvic kidney, posterior to the bladder Lt kidney:visualized Lt kidney:3.5 mm , dilatation Gender:male Wants to know gender:yes Maternal Structures Uterus / Cervix Approach:Transabdominal Cervical bikzxl82.3 mm Consultation / Office Visit Office note to follow Impression ========= Size consistent with dates. Right kidney appears midline and pelvic. Left kidney appears normal. No other anomalies were identified. No markers for trisomy. The cervical length appears normal. Recommendation We recommend evaluation in 6 weeks. Follow up appointment scheduled here in 6 weeks. Coding ====== Description:[id number] Follow Up Tub Wash Operator: Yessi August RDMS Physician: Denzel Edgar MD, CLARAOG Electronically signed by: Denzel Edgar MD, CLARAOG at: 14:12 us Batool Frederick MD IMG US ORDERABLES Final Result documented in this encounter Visit Diagnoses Diagnosis Intrahepatic cholestasis of in second trimester documented in this encounter Care Teams Powdered Sugar Supervisor Relationship Specialty Start Date End Date Provider, [place] [address] PCP - General 02/01/25 documented as of this encounter
--- OUTSIDE RECORDS SUMMARY | 2025-05-02 12:45 | XMS_ITS | Encounter Summary ---
Author [facility] Address [address] [place] [address] Care Team Providers Care Dormitory Maid Name Role Phone Provider, No Known Primary Care Provider Unavail able Reason for Referral * Diagnostic Imaging (Routine) - Authorized Specialty Diagnoses / Procedures Referred By Conthafsa t Referred To Contact Radiology Diagnoses Intrahepatic cholestasis of in second trimester , unspecified gestational age Procedures [facility] Erik Edgar MD [address] [facility] [address] [place] [address] Phone: tel: fax: [facility] US PER DIAG CTR [address] [place] [address] Phone: tel: Referral ID Status Reason Start Date Expiration Date V isits Requested Visits Authorized [id number] Authorized 05/02/2025 08/01/2026 1 1 Reason for Visit * Reason Comments cholestasis Encounter Details Date Type Department Care Team (Late Contact Info) Description 05/02/2025 12:45 PM EDT Office Visit [facility]NAL MEDICINE [address] [facility] [address] [place] [address] Erik Edgar MD [address] [facility] [address] [place], [place] [id number] Intrahepatic cholestasis of in second trimester (Primary [...] recommended at 37 weeks gestation. Orders: - [facility]; Future 2. , unspecified gestational age - [facility]; Future 3. renal anomaly, [...] or [facility]. Erik Edgar MD Maternal Medicine, [facility] Diagnostic [place] 05/02/2025 documented in this encounter Plan of Treatment Upcoming Encounters Date Type Department Care Team (Late st Contact Info) Description 06/13/2025 2:15 PM EDT Office Visit [facility] MATERNAL MEDICINE [address] [facility] [address] [place] [address] 06/13/2025 2:15 PM EDT Appointment [facility] PER DIAG CTR [address] [place] [address] Scheduled Orders Name Type Priority Associated Diagnoses Orde r Schedule [facility] Diagnostic [place] Imaging Routine Intrahepatic cholestasis of in second trimester , unspecified gestational age Expected: 06/13/2025, Expires: 05/02/2026 documented as of this encounter Visit Diagnoses Diagnosis Intrahepatic cholestasis of in second trimester- Primary , unspecified gestational age renal anomaly, single gestation documented in this encounter Care Teams Dormitory Maid Relationship Specialty Start Date End Date Provider, [place] [address] PCP - General 02/01/25 documented as of this encounter
--- OUTSIDE RECORDS SUMMARY | 2025-05-07 09:30 | XMS_ITS | Encounter Summary ---
Author Organization [place] Address [address] [facility] [place] [address] Care Team Providers Care Outside Sales Representative Insurance Name Role Phone Unavailable Primary Care Provider Sergio e Encounter Details Date Type Department Care Team (Latest Contact Info) Description 05/07/2025 9:30 AM EDT - 05/07/2025 11:59 PM EDT Hospital Encounter [facility] [place] [address] Intrahepatic cholestasis of , first trimester (Primary Dx) Discharge Disposition: Home or Self Care Social [...] as of this encounter Functional Status * Is the person deaf or does he/she have serious difficulty hearing? Answer Date of Assessment Author No 04/12/2025 12:33 PM EDT Blank Abbasi RN * Is the person blind or does he/she have serious difficulty seeing even when wearing glasses? Answer Date of Assessment Author No 04/12/2025 12:33 PM EDT Blank Abbasi RN * Does this person have serious [...] 04/12/2025 12:33 PM Blank Zaragoza RN documented as of this encounter Mental Status * Because of a physical, mental or emotional condition, does this person have serious difficulty concentrating, remembering or making decisions? Answer Entry Date Author No 04/12/2025 12:33 PM Blank Zaragoza RN documented in this encounter Medications at Time of Discharge b vmrqjjv-B-oasvz acid (NEPHROCAP) 1 mg Oral Capsule Take [...] Discharge Disposition Disposition Code Departure Means Destination Home or Self Care documented in this encounter Plan of Treatment Not on file documented as of this encounter Goals Goal Patient Goal Type Associated Problems Recent Progress Patient-Stated? Author Maintain a healthy diet, exercise regularly and maintain an ideal body weight General No Orquidea Vasques APRN documented as of this encounter Procedures Procedure Name Priority Date/Time Associated Diagnosis Comments BILE ACIDS TOTAL -REF LAB Callback 05/07/2025 10:05 AM EDT Intrahepatic cholestasis of , first trimester COMPREHENSIVE METABOLIC PANEL Callback 05/07/2025 10:05 AM EDT Intrahepatic cholestasis of , first trimester documented in this encounter Results * BILE ACIDS TOTAL -REF LAB (05/07/2025 10:05 AM EDT) Bile Acids 8 0 - 10 umol/L 05/08/2025 5:41 PM EDT [employer] Comment: INTERPRETIVE INFORMATION: Bile Acids, Total Reference Interval applies to fasting specimens. Performed By: [facility] [address] [place] [address] Security Systems Administrator: Kiet Sanon MD, PhD CLIA Number: [id number] Blood VENOUS BLOOD / Unknown Venipuncture / Unknown 05/07/2025 10:05 AM EDT 05/07/2025 10:59 AM EDT us Not In Epic Provider CHEMISTRY ORDERABLES Final Result [facility] [address] [place] [address] * (ABNORMAL) COMPREHENSIVE METABOLIC PANEL (05/07/2025 10:05 AM EDT) Pathologist [facility] Sodium 137 136 - 145 mmol/L 05/07/2025 11:35 AM EDT [facility] Potassium 3.8 3.5 - 5.0 mmol/L 05/07/2025 11:35 AM EDT [facility] Chloride 103 98 - 107 mmol/L 05/07/2025 11:35 AM EDT [facility] Total CO2 22 22 - 29 mmol/L 05/07/2025 11:35 AM EDT [facility] Anion Gap 12 7 - 16 mmol/L 05/07/2025 11:35 AM EDT [facility] Calcium 9.1 8.6 - 10.4 mg/dL 05/07/2025 11:35 AM EDT [facility] Glucose Lvl 77 70 - 99 mg/dL 05/07/2025 11:35 AM EDT [facility] BUN 6 6 - 20 mg/dL 05/07/2025 11:35 AM EDT [facility] Creatinine 0.38(L) 0.51 - 1.30 mg/dL 05/07/2025 11:35 AM EDT [facility] Albumin 4.0 3.5 - 5.2 gm/dL 05/07/2025 11:35 AM EDT [facility] Total Protein 6.4 6.4 - 8.3 gm/dL 05/07/2025 11:35 AM EDT [facility] Bili Total 0.2 0.2 - 1.3 mg/dL 05/07/2025 11:35 AM EDT [facility] ALT 11 <=41 U/L 05/07/2025 11:35 AM EDT [facility] AST 14 <=40 U/L 05/07/2025 11:35 AM EDT [facility] Alk Phos 88 36 - 123 U/L 05/07/2025 11:35 AM EDT [facility] eGFR (CKD-EPIcr 2020) 146 >=60 mL/min/1.7 3 m2 05/07/2025 11:35 AM EDT [facility] Comment:Estimated GFR was ca lculated using the CKD-EPIcr (2020) equation refit without race. The equation is recommended by the National Kidney Foundation - [place] Society of Nephrology Task Force. Blood VENOUS BLOOD / Unknown Venipuncture / Unknown 05/07/2025 10:05 AM EDT 05/07/2025 11:02 AM EDT us Not In Epic Provider CHEMISTRY ORDERABLES Final Result [facility] [address] [facility] , [address] [place] [id number] documented in this encounter Visit Diagnoses Diagnosis Intrahepatic cholestasis of , first trimester- Primary documented in this encounter
--- OUTSIDE RECORDS SUMMARY | 2025-05-27 13:20 | XMS_ITS | Encounter Summary ---
[facility] Address [address] [place] [address] Care Team Providers Care Film Flat Inspector Name Role Phone Provider, No Known Primary [...] [facility] [address] [facility] [address] [place] [address] 06/13/2025 2:15 PM EDT Appointment [facility] PER [facility]AG [facility] [address] [facility] [place] [address] documented as of this encounter Visit Diagnoses Not on filedocumented in this encounter Care Teams Film Flat Inspector Relationship Specialty Start Date End Date Provider, No Known [facility] [place] [address] PCP - General 02/01/25 documented as of this encounter
--- OUTSIDE RECORDS SUMMARY | 2025-05-27 13:20 | XMS_ITS | Clinical Summary ---
[facility] Address [address] [place] [address] Care Team Providers Care Sql Data Architect Name Role Phone Provider, No Known Primary Care Provider Unavail able Allergies Active Allergy Reactions Criticality Noted Date Comments Amoxicillin-Pot Clavulanate Rash Low 08/17/20 10 Medications ursodiol (ACTIGALL) 300 MG capsule Take 1 capsule by mouth 2 (Two) Times a Day. 03/19/2025 Active Egvkfoga-Ios-Zm -FA ( 1 + IRON PO) Take [...] - 05/02/2025 11:59 PM EDT Hospital Encounter [facility] [address] [place] [address] Batool Frederick MD Intrahepatic cholestasis of in second trimester Discharge Disposition: Home or Self Care 05/02/2025 12:45 PM EDT Office Visit [facility] [address] [facility] [address] [place] [address] Erik Edgar MD Intrahepatic cholestasis of in second trimester (Primary Dx); , unspecified gestational age; renal anomaly, single gestation 05/02/2025 Travel 03/21/2025 12:30 PM EDT Office Visit [facility] [address] [facility] [address] [place] [address] Batool Frederick MD Intrahepatic cholestasis of in second trimester (Primary Dx) 03/21/2025 12:28 PM EDT - 03/21/2025 11:59 PM EDT Hospital Encounter [facility] [address] [place] [address] Sabrina Simms DO Intrahepatic cholestasis [...] Description 06/13/2025 2:15 PM EDT Office Visit [facility] [address] [place] [address] 06/13/2025 2:15 PM EDT Appointment [facility] [address] [place] [address] Health Maintenance Due Date Last [...] Procedure Name Priority Date/Time Associated Diagnosis Comments [facility] Routine 05/02/2025 1:30 PM EDT Intrahepatic cholestasis of in second trimester [facility] Routine 03/21/2025 1:43 PM EDT Intrahepatic cholestasis of , antepartum , unspecified gestational age from Last 3 Months Results * [facility] (05/02/2025 1:30 PM EDT) Only the most recent of2 resultswithin the time period is included. Anatomical Region Laterality Modality Ultrasound 05/02/2025 1:08 PM EDT Narrative 05/02/2025 2:12 PM EDT PAT NAME: BENJY TOURE [facility] REC#: [id number] DA: [id number] PAT GEND: F PAT TYPE: O EXAM RODRIGO: [id number] REF PHYS SABRINA SIMMS Comparison Studies The [...] EFW (oz) 13 oz EFW by: Hadlock (WPH-FJ-MZ-FL) Extended Cav. septi pel. tr 4.8 mm Real Estate Job Titles 3.6 mm CM 6.1 mm 50% Nicolaides [...] Normal Heart / Thorax 3-vessel view: Normal 5-wtmpqg-btdwjzl view: normal Stomach: Appears normal Bladder: Appears [...] here in 6 weeks. Coding ====== Description: 15028-33 [facility] Psychiatrist: Yessi August RDMS Physician: Denzel Edgar MD, FACOG Electronically signed by: Denzel Edgar MD, FACOG at: 14:12 Procedure Note Erik Edgar MD - 05/02/2025 PAT NAME: BENJY TOURE MED REC#: [id number] DA: [id number] PAT GEND: F PAT TYPE: O EXAM RODRIGO: [id number] REF PHYS SABRINA SIMMS Comparison Studies The findings of this study are compared to the prior ultrasound studydated 03/21/25 Patient Status Outpatient Indication ======== Cholestasis. Family hx renal agenesis. Maternal Assessment Thldob102 cm Height (ft)5 ft Height (in)6 in Mfoiyf32 kg Weight (lb)140 lb BMI22.60 kg/m Method ======= Transabdominal ultrasound examination. View: Adequate view ========= Wallace . Number of fetuses: 1 Dating ====== Method of dating:based on stated TAHIR GA by prior duhxesvunt10 w + 6 d TAHIR by prior assessment:08/16/2025 Ultrasound examination on:05/02/2025 GA by U/S based upon:AC, BPD, Femur, HC GA by U/S25 w + 6 d TAHIR by U/S:08/09/2025 Previous dating:based on stated TAHIR, selected on 03/21/2025 Agreed TAHIR of previous datin08/16/2025 Assigned:based on stated TAHIR, selected on 05/02/2025 Assigned GA24 w + 6 d Assigned TAHIR:08/16/2025 thgllu465 d Biometry Standard BPD63.2 mm 25w 4d 69% Hadlock OFD88.0 mm 28w 2d >99% Lisa HC246.1 mm 26w 5d 89% Hadlock Cerebellum tr30.4 mm 26w 2d 91% Hill AC211.2 mm 25w 5d 66% Hadlock Femur45.9 mm 25w 2d 48% Hadlock Veogzmm86.3 mm 26w 2d 86% Lisa HC / AC1.17 RTF450 g 25w 2d 72% Hadlock EFW (lb)1 lb EFW (oz)13 oz EFW by:Hadlock (JQC-JA-ZA-FL) Extended Cav. septi pel. tr4.8 mm Vp3.6 mm CM6.1 mm 50% Nicolaides Head / Face / Neck Cephalic index0.72 2% Nicolaides Extremities / Bony Struc FL / BPD0.73 FL / HC0.19 FL / AC0.22 Other Structures JOT546 bpm General Evaluation Cardiac activity present. FHR 144 bpm. movements present. Presentation cephalic. Placenta Placental site: anterior. Amniotic fluid Amount of AF: normal. MVP 6.6 cm. Anatomy Cranium:Normal Cavum septi pellucidi:Normal Cerebellum:Normal Cisterna magna:Normal Head / Neck Rt lateral ventricle:Normal Lt lateral ventricle:Normal Lips:Normal Profile:Normal Nose:Normal 4-chamber view:Appears normal RVOT view:Normal LVOT view:Normal Heart / Thorax 3-vessel view:Normal 3-emqatv-ytdbpnk view:normal Stomach:Appears normal Bladder:Appears normal Abdomen Rt kidney:visualized Rt kidney:pelvic kidney, posterior to the bladder Lt kidney:visualized Lt kidney:3.5 mm , dilatation Gender:male Wants to know gender:yes Maternal Structures Uterus / Cervix Approach:Transabdominal Cervical ebzrfy76.3 mm Consultation / Office Visit Office note to follow Impression ========= Size consistent with dates. Right kidney appears midline and pelvic. Left kidney appears normal. No other anomalies were identified. No markers for trisomy. The cervical length appears normal. Recommendation We recommend evaluation in 6 weeks. Follow up appointment scheduled here in 6 weeks. Coding ====== Description:17878-71 [facility] Psychiatrist: Yessi August RDMS Physician: Denzel Edgar MD, FACOG Electronically signed by: Denzel Edgar MD, FACOG at: 14:12 us Batool Frederick MD IMG US ORDERABLES Final Result from Last 3 Months Insurance [facility] PPO Care Teams Sql Data Architect Relationship Specialty Start Date End Date Provider, No Known [facility] [place] [address] PCP - General 02/01/25
--- OUTSIDE RECORDS SUMMARY | 2025-05-27 13:20 | XMS_ITS | Encounter Summary ---
Author Organization [facility] [place] [address] Care Team Providers Care Director Of Broadcast Name Role Phone Unavailable Primary Care Provider [...] 04/12/2025 11:51 AM Sabrina Souza RN * [place] Suicide Severity Rating Scale (Q shift for [...]
--- OUTSIDE RECORDS SUMMARY | 2025-05-27 13:20 | XMS_ITS | Clinical Summary ---
Author Organization [facility] Address [address] [place] [address] JARED Blackburn [address] Phone Care Team Providers Care Forest Economics Professor Name Role Phone Unavailable Primary Care Provider Unavailabl e Allergies Active Allergy Reactions Criticality Noted Date Comments Amoxicillin-Pot Clavulanate Rash Low 03/16/20 24 Medications FLUoxetine (PROZAC) 10 mg Oral CapsuleIndicati ons:Anxiety and depression Take 1 Capsule by mouth daily. 90 Capsule 3 Active Additional Information Patient not taking.Reason: Therapy Completed, Reported on 05/14/2024 b sutmhek-P-stlde acid (NEPHROCAP) 1 mg Oral Capsule Take [...] Encounters Date Type Department Care Team Description 05/07/2025 9:30 AM EDT - 05/07/2025 11:59 PM EDT Hospital Encounter [facility] [place] [address] [place] [address] Intrahepatic cholestasis of , first trimester (Primary Dx) Discharge Disposition: Home or Self Care 04/12/2025 11:32 AM EDT - 04/12/2025 12:44 PM EDT Hospital Encounter [facility] [place] [address] Asael Beard MD Discharge Disposition: Home or [...] Estimated Date of Delivery 04/12/2025 - Present (05/27/2025) 08/16/2025 (set by Dasha Maravilla, RN on 04/12/2025 based on Other Basis) Dating Summary Based On TAHIR GA Diff Other Basis 08/16/2025 Working Last Menstrual Period on 05/17/2024 (Approximate ) 02/21/2025 +25w1d Vitals Pregravid Weight Height TWG (As of 05/27/2025) Pregrav id BMI 5' 5 (1.651 m) [...] body weight General No Orquidea Vasques APRN Procedures Procedure Name Priority Date/Time Associated Diagnosis Comments BILE ACIDS TOTAL -REF LAB Callback 05/07/2025 10:05 AM EDT Intrahepatic cholestasis of , first trimester COMPREHENSIVE METABOLIC PANEL Callback 05/07/2025 10:05 AM EDT Intrahepatic cholestasis of , first trimester from Last 3 Months Results * BILE ACIDS TOTAL -REF LAB (05/07/2025 10:05 AM EDT) Bile Acids 8 0 - 10 umol/L 05/08/2025 5:41 PM EDT [employer] Comment: INTERPRETIVE INFORMATION: Bile Acids, Total Reference Interval applies to fasting specimens. Performed By: [employer] [address] [place] [address] Dramatic Art Teacher: Kiet Sanon MD, PhD CLIA Number: [id number] Blood VENOUS BLOOD / Unknown Venipuncture / Unknown 05/07/2025 10:05 AM EDT 05/07/2025 10:59 AM EDT us Not In Epic Provider CHEMISTRY ORDERABLES Final Result [employer] [address] [place] [address] * (ABNORMAL) COMPREHENSIVE METABOLIC PANEL (05/07/2025 10:05 AM EDT) Pathologist [facility] Sodium 137 136 - 145 mmol/L 05/07/2025 [...] 05/07/2025 11:35 AM EDT [facility] Creatinine 0.38(L) 0.51 - 1.30 mg/dL 05/07/2025 11:35 AM EDT [facility] Albumin 4.0 3.5 - 5.2 gm/dL 05/07/2025 11:35 AM EDT [facility] Total Protein 6.4 6.4 - 8.3 gm/dL [...] 05/07/2025 11:35 AM EDT [facility] eGFR (CKD-EPIcr 2020) 146 >=60 mL/min/1.7 3 m2 05/07/2025 11:35 AM EDT [facility] Comment:Estimated GFR was ca lculated using the CKD-EPIcr (2020) equation refit without race. The equation is recommended by the National Kidney Foundation - [place] Society of Nephrology Task Force. Blood VENOUS BLOOD / Unknown Venipuncture / Unknown 05/07/2025 10:05 AM EDT 05/07/2025 11:02 AM EDT us Not In Epic Provider CHEMISTRY ORDERABLES Final Result [facility] [address] [place] [id number] from Last 3 Months Insurance [facility] [address] [place] PPO PPO
[2025-05-27 13:49] LABS: Hematocrit 33.8 % (37.0-47.0); Hemoglobin 11.7 g/dL (12.2-16.2); Immature Granulocytes % 2.2 %; Mean Corpuscular HGB Conc 34.6 g/dL (31.8-35.4); Mean Corpuscular Hemoglobin 31.2 pg (27.0-31.2); Mean Corpuscular Volume 90.1 fl (81-99); Nucleated Red Blood Cells % 0 %; Platelet Count 202 K/mm3 (142-424); Red Blood Count 3.75 M/mm3 (4.20-5.40); Red Cell Distribution Width-SD 40.8 fL; White Blood Count 11.0 K/mm3 (4.5-13.0)
[2025-05-27] MEDS: RHO(D) IMMUNE GLOBULIN 1,500 UNIT (300MCG) SYRINGE 300 MCG IM (14:33)
[2025-05-27 14:47] VITALS: BP 115/72; PULSE 74; RESP 18; TEMP 36.8; O2SAT 99
[2025-05-27 15:15] LABS: Glucose 1 Hour 125 mg/dL (74-100)
[2025-05-27 17:06] LABS: RPR W/RFX Titers Nonreactive (Nonreactive)
== END 2025-05-27 14:53 | disposition home or self-care (01) ==
LOC: INF 13:17
PROVIDERS: Visit Provider Obstetrics & Gynecology
DX: O26 Maternal care for other conditions predominantly related to pregnancy (principal); Z3A.00 Weeks of gestation of pregnancy not specified
CPT/HCPCS: 36415; 82947; 85025; 86592; 96372; J2790

== ENCOUNTER 2025-06-28 11:31 | Outpatient (CLI) | payer BC, SELFPAY ==
--- OUTSIDE RECORDS SUMMARY | 2025-05-02 12:45 | XMS_ITS | Encounter Summary ---
Author Organization [facility] Address [address] [place] [address] Care Team Providers Care Carpet Installer Name Role Phone Provider, No Known Primary Care Provider Unavail able Reason for Referral * Diagnostic Imaging (Routine) - Closed Specialty Diagnoses / Procedures Referred By Kb t Referred To Contact Radiology Diagnoses Intrahepatic cholestasis of in second trimester , unspecified gestational age Procedures [facility] Erik Edgar MD [address] [facility] [address] [place] [id number] Phone: tel: fax: [facility] [address] [place] [address] Phone: tel: Referral ID Status Reason Start Date Expiration Date Visits Re quested Visits Authorized [id number] Closed 05/02/2025 08/01/2026 1 1 Reason for Visit * Reason Comments cholestasis Encounter Details Date Type Department Care Team (Late Contact Info) Description 05/02/2025 12:45 PM EDT Office Visit [facility] [address] [facility] [address] [place] [address] Erik Edgar MD [address] [facility] [address] [place], [place] [id number] Intrahepatic cholestasis of in second trimester (Primary Dx); , unspecified gestational age; renal anomaly, single gestation Social History Tobacco Use Types Packs/Day Years [...] Sign Reading Time Taken Comments Blood Pressure 106/67 05/02/2025 1:04 PM EDT Pulse - - Temperature - - Respiratory Rate - - Oxygen Saturation - - Inhaled Oxygen Concentration - - Weight 63.5 kg (140 lb) 05/02/2025 1:04 PM EDT Height - - Body Mass Index 22.26 03/21/2025 12:51 PM EDT documented in this encounter Progress Notes * Erik Edgar MD - 05/02/2025 1:30 PM EDTAssociated Problem(s): renal anomaly, single gestation Patient has a family history of renal agenesis in both father of this patient and other relatives. Original scans in our office demonstrated clear left kidney that appeared normal and a suspicion of a right kidney. Ultrasound today demonstrates a probable right kidney that is midline and pelvic. Asleft kidney appears entirely normal and amniotic fluid volume is normal it is unlikely that this will necessitate any changes in normal obstetric care. We would recommend an ultrasound of the newbornGU system after . * Erik Edgar MD - 05/02/2025 1:14 PM EDTAssociated Problem(s): Intrahepatic cholestasis of Intrahepatic cholestasis of (ICP) is a reversible type of hormonally influenced cholestasis. Approximately 0.5% of pregnancies in the [place] are affected by this condition. It most often presents in the late second or early third trimester of in individuals who are genetically predisposed. It is characterized by generalized itching, often commencing with pruritus of thepalms of the hands and soles of the feet with no other skin manifestation. The diagnosis is based on physical examination and laboratory findings. Affected individual may have a defect involving the excretion of bile salts which leads to increased serum bile acids. These are deposited within the skin, causing intense pruritus. Seasonal variation is noted with more severe cases in the winter months. From a maternal viewpoint, the main consideration is intense pruritus which may become so intolerable that delivery is considered as early as 35-37 weeks. The viewpoint is more concerning as even with modern treatment the risk for demise can range from 2-11%. Thus, many would advocatedelivery at 37 weeks. A possible explanation for the risk of an IUFD is taurocholate crossing into the compartment and causing arrhythmias and decreased cardiac contractility. Steatorrheaand vitamin K deficiency may also occur due to fat malabsorption. If the vitamin K deficiency is not corrected by the time of delivery, a hemorrhage may ensue. Multiple laboratory abnormalities can be seen in ICP. The most specific and sensitive marker of ICPis total serum bile acid levels greater than 10 micromol/L. The elevation of aminotransferases associated with ICP varies from a mild increase to a 10- to 25-fold increase. Total bilirubin levels arealso increased but usually the values are less than 5 mg/dL. Alkaline phosphatase is elevated in ICP up to 4-fold, but this is not helpful for diagnosis of the disorder since alkaline phosphatase is elevated in due to production by the placenta. Recommended laboratory studies for the diagnosis of ICP include total serum bile acid levels, cholic acid, total bilirubin, transaminases, PT, P TT and INR. Once a diagnosis of ICP has been made, total bile acid levels can be followed every 2-3weeks to guide therapy and timing of delivery. Delivery is suggested at 37 weeks' without need of an amniocentesis for lung maturity due to increased risk of mortality or after an amniocentesis for delivery prior to 37 weeks' gestation. If meconium is present at the time of amniocentesis, delivery is indicated regardless of the lung maturity results. Delivery can proceed withoutan amniocentesis if the monitoring is nonreassuring. Many pharmacological agents have been used in the treatment of intrahepatic cholestasis of (ICP). These include Phenobarbital (100 mg qd), hydroxyzine (25-50 mg qd), cholestyramine (8-16 g/d) and dexamethasone (12 mg 4 times daily for 7 days followed by a tapering dose). Vitamin K deficiency has been observed with the use of cholestyramine in high doses. Ursodeoxycholic acid (Actigall) remains the drug of choice for the treatment of ICP. A daily dose ranging from 600-2100 mg is effective at reducing pruritus, decreasing the total serum bile acid levels, ALT values and bilirubin levels and allowing delivery closer to term. Cholestasis recurs during subsequent pregnancies in 60-70% of women with ICP. Recurrent episodes are variable in severity compared with the index . In cases of family history for ICP, there may be up to a 92% rate of incidence in planned . A genetic etiology may underlie these recurrent statistics. Additionally, data supports the increased risk of stillbirth. is complicated by intrahepatic cholestasis of . Consequently we would recommend testing beginning at 30 to 32 weeks gestation. Delivery is generally recommended at 37 weeks gestation. * Verónica Lynn RN - 05/02/2025 12:45 PM EDT Patient denies any leaking of fluid, vaginal bleeding, or contractions. NIPT negative. Patient reports next follow-up appointment with Dr. Simms's office is 05/23. * Erik Edgar MD - 05/02/2025 12:45 PM EDT Images from the original note were not included. Documentation of the ultrasound findings, images, and interpretations will be available in the patient's Viewpoint report which is located in the imaging tab in chart review. Maternal/ Medicine Follow Up Note Name: Benjy Toure : 2005 Referring Provider: Sabrina Smims DO Chief Complaint cholestasis Subjective History of Present Illness: Benjy Toure is a 20 y.o. 24w6d who presents today for cholestasis TAHIR: Estimated Date of Delivery: 08/16/25 ROS: As noted in HPI. Objective Vital Signs BP 106/67 Wt 63.5 kg (140 lb) Estimated body mass index is 22.26 kg/m?? as calculated from the following: Height as of 03/21/25: 168.9 cm (66.5 ). Weight as of this encounter: 63.5 kg (140 lb). Physical Exam Ultrasound Impression: See Viewpoint Assessment and Plan Benjy Toure is a 20 y.o. 24w6d who presents today for cholestasis Diagnoses and all orders for this visit: 1. Intrahepatic cholestasis of in second trimester (Primary) Assessment & Plan: Intrahepatic cholestasis of (ICP) is a reversible type of hormonally influenced cholestasis. Approximately 0.5% of pregnancies in the [place] are affected by this condition. It most often presents in the late second or early third trimester of in individuals who are genetically predisposed. It is characterized by generalized itching, often commencing with pruritus of thepalms of the hands and soles of the feet with no other skin manifestation. The diagnosis is based on physical examination and laboratory findings. Affected individual may have a defect involving the excretion of bile salts which leads to increased serum bile acids. These are deposited within the skin, causing intense pruritus. Seasonal variation is noted with more severe cases in the winter months. From a maternal viewpoint, the main consideration is intense pruritus which may become so intolerable that delivery is considered as early as 35-37 weeks. The viewpoint is more concerning as even with modern treatment the risk for demise can range from 2-11%. Thus, many would advocatedelivery at 37 weeks. A possible explanation for the risk of an IUFD is taurocholate crossing into the compartment and causing arrhythmias and decreased cardiac contractility. Steatorrheaand vitamin K deficiency may also occur due to fat malabsorption. If the vitamin K deficiency is not corrected by the time of delivery, a hemorrhage may ensue. Multiple laboratory abnormalities can be seen in ICP. The most specific and sensitive marker of ICPis total serum bile acid levels greater than 10 micromol/L. The elevation of aminotransferases associated with ICP varies from a mild increase to a 10- to 25-fold increase. Total bilirubin levels arealso increased but usually the values are less than 5 mg/dL. Alkaline phosphatase is elevated in ICP up to 4-fold, but this is not helpful for diagnosis of the disorder since alkaline phosphatase is elevated in due to production by the placenta. Recommended laboratory studies for the diagnosis of ICP include total serum bile acid levels, cholic acid, total bilirubin, transaminases, PT, P TT and INR. Once a diagnosis of ICP has been made, total bile acid levels can be followed every 2-3weeks to guide therapy and timing of delivery. Delivery is suggested at 37 weeks' without need of an amniocentesis for lung maturity due to increased risk of mortality or after an amniocentesis for delivery prior to 37 weeks' gestation. If meconium is present at the time of amniocentesis, delivery is indicated regardless of the lung maturity results. Delivery can proceed withoutan amniocentesis if the monitoring is nonreassuring. Many pharmacological agents have been used in the treatment of intrahepatic cholestasis of (ICP). These include Phenobarbital (100 mg qd), hydroxyzine (25-50 mg qd), cholestyramine (8-16 g/d) and dexamethasone (12 mg 4 times daily for 7 days followed by a tapering dose). Vitamin K deficiency has been observed with the use of cholestyramine in high doses. Ursodeoxycholic acid (Actigall) remains the drug of choice for the treatment of ICP. A daily dose ranging from 600-2100 mg is effective at reducing pruritus, decreasing the total serum bile acid levels, ALT values and bilirubin levels and allowing delivery closer to term. Cholestasis recurs during subsequent pregnancies in 60-70% of women with ICP. Recurrent episodes are variable in severity compared with the index . In cases of family history for ICP, there may be up to a 92% rate of incidence in planned . A genetic etiology may underlie these recurrent statistics. Additionally, data supports the increased risk of stillbirth. is complicated by intrahepatic cholestasis of . Consequently we would recommend testing beginning at 30 to 32 weeks gestation. Delivery is generally recommended at 37 weeks gestation. Orders: - [facility]; Future 2. , unspecified gestational age - [facility]; Future 3. renal anomaly, single gestation Assessment & Plan: Patient has a family history of renal agenesis in both father of this patient and other relatives. Original scans in our office demonstrated clear left kidney that appeared normal and a suspicion of a right kidney. Ultrasound today demonstrates a probable right kidney that is midline and pelvic. Asleft kidney appears entirely normal and amniotic fluid volume is normal it is unlikely that this will necessitate any changes in normal obstetric care. We would recommend an ultrasound of the newbornGU system after . Follow Up Return in about 6 weeks (around 06/13/2025). I spent 20 minutes caring for the patient on the day of service. This included: obtaining or reviewing a separately obtained medical history, reviewing patient records, performing a medically appropriate exam and/or evaluation, counseling or educating the patient/family/caregiver, ordering medications, labs, and/or procedures and documenting such in the medical record. This does not include time spent on review and interpretation of other tests such as ultrasound or the performance of other procedures such as amniocentesis or CVS. Erik Edgar MD Maternal Medicine, [facility] 05/02/2025 documented in this encounter Plan of Treatment Not on file documented as of this encounter Results * [facility] (06/13/2025 2:37 PM EDT) Anatomical Region Laterality Modality Ultrasound 06/13/2025 2:23 PM EDT Narrative 06/13/2025 2:39 PM EDT PAT NAME: BENJY TOURE MED REC#: [id number] DA: [id number] PAT GEND: F PAT TYPE: O EXAM RODRIGO: [id number] REF PHYS SABRINA SIMMS Comparison Studies The findings of this study are compared to the prior ultrasound study dated 05/02/25 Patient Status Outpatient Indication ======== Follow up pelvic kidney. Cholestasis. Maternal Assessment Height 168 cm Height (ft) 5 ft Height (in) 6 in Weight 67 kg Weight (lb) 147 lb BMI 23.73 kg/m Method ======= Transabdominal ultrasound examination. View: Adequate view ========= Wallace . Number of fetuses: 1 Dating ====== Method of dating: based on stated TAHIR GA by prior assessment 30 w + 6 d TAHIR by prior assessment: 08/16/2025 Ultrasound examination on: 06/13/2025 GA by U/S based upon: AC, BPD, Femur, HC GA by U/S 32 w + 4 d TAHIR by U/S: 08/04/2025 Previous dating: based on stated TAHIR, selected on 05/02/2025 Agreed TAHIR of previous datin08/16/2025 Assigned: based on stated TAHIR, selected on 06/13/2025 Assigned GA 30 w + 6 d Assigned TAHIR: 08/16/2025 length 280 d Biometry Standard BPD 84.0 mm 33w 6d 98% Hadlock OFD 109.7 mm 36w 2d >99% Lisa HC 311.1 mm 34w 6d 97% Hadlock Cerebellum tr 42.4 mm 33w 3d 97% Hill AC 263.6 mm 30w 3d 35% Hadlock Femur 59.7 mm 31w 1d 42% Hadlock Humerus 54.8 mm 31w 6d 80% Lisa HC / AC 1.18 EFW 1,749 g 31w 0d 54% Hadlock EFW (lb) 3 lb EFW (oz) 14 oz EFW by: Hadlock ([id number]) Extended Cav. septi pel. tr 7.3 mm CM 9.7 mm 97% Nicolaides Head / Face / Neck Cephalic index 0.77 21% Nicolaides Extremities / Bony Struc FL / BPD 0.71 FL / HC 0.19 FL / AC 0.23 Other Structures FHR 134 bpm General Evaluation Cardiac activity present. FHR 134 bpm. movements present. Presentation cephalic. Placenta Placental site: anterior. Amniotic fluid Amount of AF: normal. MVP 4.0 cm. NADINE 14.4 cm. Q1 4.0 cm, Q2 3.1 cm, Q3 3.8 cm, Q4 3.5 cm. Anatomy Cranium: Normal Cavum septi pellucidi: Normal Cerebellum: Normal Cisterna magna: Normal Head / Neck Rt lateral ventricle: Normal Lt lateral ventricle: Normal Lips: Normal Profile: Normal Nose: Normal 4-chamber view: Appears normal RVOT view: Normal LVOT view: Normal Heart / Thorax 3-vessel view: Normal 9-[id number]-[id number] view: normal Stomach: Appears normal Bladder: Appears normal Abdomen Rt kidney: pelvic kidney Gender: male Wants to know gender: yes Biophysical Profile 2: breathing movements 2: Gross body movements 2: tone 2: Amniotic fluid volume 05/24 Biophysical profile score Impression Today's exam reveals a SIUP in cephalic presentation with biometry consistent with dates. Limited anatomic survey shows known right pelvic kidney but otherwise appears normal. The NADINE and BPP are normal. Recommendation Follow-up as clinically indicated. Coding ======= Description: 01333-82 Follow Up Ultrasound Description: 63170-35 BPP without NST Electric Motorman: Yessi August RDMS Physician: Tab Chiu MD, FACOG Electronically signed by: Tab Chiu MD, FACOG at: 14:39 Procedure Note Tab Chiu MD - 06/13/2025 PAT NAME: BENJY TOURE MED REC#: [id number] DA: [id number] PAT GEND: F PAT TYPE: O EXAM RODRIGO: [id number] REF PHYS SABRINA SIMMS Comparison Studies The findings of this study are compared to the prior ultrasound studydated 05/02/25 Patient Status Outpatient Indication ======== Follow up pelvic kidney. Cholestasis. Maternal Assessment Kwqmiy122 cm Height (ft)5 ft Height (in)6 in Lotrru72 kg Weight (lb)147 lb BMI23.73 kg/m Method ======= Transabdominal ultrasound examination. View: Adequate view ========= Wallace . Number of fetuses: 1 Dating ====== Method of dating:based on stated TAHIR GA by prior [id number] w + 6 d TAHIR by prior assessment:08/16/2025 Ultrasound examination on:06/13/2025 GA by U/S based upon:AC, BPD, Femur, HC GA by U/S32 w + 4 d TAHIR by U/S:08/04/2025 Previous dating:based on stated TAHIR, selected on 05/02/2025 Agreed TAHIR of previous datin08/16/2025 Assigned:based on stated TAHIR, selected on 06/13/2025 Assigned GA30 w + 6 d Assigned TAHIR:08/16/2025 [id number] d Biometry Standard BPD84.0 mm 33w 6d 98% Hadlock AVT797.7 mm 36w 2d >99% Lisa HC311.1 mm 34w 6d 97% Hadlock Cerebellum tr42.4 mm 33w 3d 97% Hill AC263.6 mm 30w 3d 35% Hadlock Femur59.7 mm 31w 1d 42% Hadlock Dejlaod28.8 mm 31w 6d 80% Lisa HC / AC1.18 EFW1,749 g 31w 0d 54% Hadlock EFW (lb)3 lb EFW (oz)14 oz EFW by:Hadlock ([id number]) Extended Cav. septi pel. tr7.3 mm CM9.7 mm 97% Nicolaides Head / Face / Neck Cephalic index0.77 21% Nicolaides Extremities / Bony Struc FL / BPD0.71 FL / HC0.19 FL / AC0.23 Other Structures [id number] bpm General Evaluation Cardiac activity present. FHR 134 bpm. movements present. Presentation cephalic. Placenta Placental site: anterior. Amniotic fluid Amount of AF: normal. MVP 4.0 cm. NADINE 14.4 cm. Q1 4.0 cm,Q2 3.1 cm, Q3 3.8 cm, Q4 3.5 cm. Anatomy Cranium:Normal Cavum septi pellucidi:Normal Cerebellum:Normal Cisterna magna:Normal Head / Neck Rt lateral ventricle:Normal Lt lateral ventricle:Normal Lips:Normal Profile:Normal Nose:Normal 4-chamber view:Appears normal RVOT view:Normal LVOT view:Normal Heart / Thorax 3-vessel view:Normal 3-ugtdhh-edeuwkd view:normal Stomach:Appears normal Bladder:Appears normal Abdomen Rt kidney:pelvic kidney Gender:male Wants to know gender:yes Biophysical Profile 2: breathing movements 2: Gross body movements 2: tone 2: Amniotic fluid volume 05/24 Biophysical profile score Impression Today's exam reveals a SIUP in cephalic presentation with biometryconsistent with dates. Limited anatomic survey shows known rightpelvic kidney but otherwise appears normal. The NADINE and BPP are normal. Recommendation Follow-up as clinically indicated. Coding ======= Description:25475-62 Follow Up Ultrasound Description:14412-85 BPP without NST Electric Motorman: Yessi August RDMS Physician: Tab Chiu MD, FACOG Electronically signed by: Tab Chiu MD, FACOG at: 14:39 us Erik Edgar MD IMG US ORDERABLES Final Re sult documented in this encounter Visit Diagnoses Diagnosis Intrahepatic cholestasis of in second trimester- Primary , unspecified gestational age renal anomaly, single gestation Intrahepatic cholestasis of in second trimester , unspecified gestational age documented in this encounter Care Teams Carpet Installer Relationship Specialty Start Date End Date Provider, [place] [address] PCP - General 02/01/25 documented as of this encounter
--- OUTSIDE RECORDS SUMMARY | 2025-05-02 12:45 | XMS_ITS | Encounter Summary ---
Author Organization [facility] Address [address] [place] [address] Care Team Providers Care Environmental Specialist Name Role Phone Provider, No Known Primary Care Provider Unavail able Reason for Referral * Diagnostic Imaging (Routine) - Closed Specialty Diagnoses / Procedures Referred By Kb marino Referred To Contact Radiology Diagnoses Intrahepatic cholestasis of in second trimester Procedures [facility] Diagnostic [place] Batool Frederick MD [address] [place] [address] Phone: tel: fax: Referral ID Status Reason Start Date Expiration Date Visits Re quested Visits Authorized Closed 03/27/2025 06/26/2026 1 1 Reason for Visit * Diagnostic Imaging (Routine) - Closed Specialty Diagnoses / Procedures Referred By Kb marino Referred To Contact Radiology Diagnoses Intrahepatic cholestasis of in second trimester Procedures [facility] Diagnostic [place] Batool Frederick MD [address] [id number] Phone: tel: fax: Referral ID Status Reason Start Date Expiration Date Visits Re quested Visits Authorized Closed 03/27/2025 06/26/2026 1 1 Encounter Details Date Type Department Care Team (Late st Contact Info) Description 05/02/2025 12:45 PM EDT - 05/02/2025 11:59 PM EDT Hospital Encounter [facility] PER DIAG CTR [address] [place] [id number] Batool Frederick MD [address] [place] [address] Intrahepatic cholestasis of in second trimester Discharge [...] this encounter Medications at Time of Discharge Qcwxasim-Onb-La-F A ( 1 + IRON PO) Take 1 tablet by mouth Daily. 11/27/2024 ursodiol (ACTIGALL) 300 MG capsule Take 1 capsule by mouth 2 (Two) Times a Day. 03/19/2025 documented as of this encounter Plan of Treatment Not on file documented as of this encounter Procedures Procedure Name Priority Date/Time Associated Diagnosis Comments [facility] Routine 05/02/2025 1:30 PM EDT Intrahepatic cholestasis of in second trimester documented in this encounter Results * [facility] (05/02/2025 1:30 PM EDT) Anatomical Region Laterality Modality Ultrasound 05/02/2025 1:08 PM EDT Narrative 05/02/2025 2:12 PM EDT PAT NAME: BENJY TOURE MED REC#: [id number] DA: 2005 PAT GEND: F PAT TYPE: O EXAM RODRIGO: [id number] REF PHYS JENIFER CHRISTIANSON Comparison Studies The [...] on stated TAHIR, selected on 03/21/2025 Agreed ATHIR of previous datin08/16/2025 Assigned: based on stated [...] EFW (oz) 13 oz EFW by: Hadlock (BKP-OS-VG-FL) Extended Cav. septi pel. tr 4.8 mm Retail Customer Service Representative 3.6 mm CM 6.1 mm 50% Nicolaides [...] Normal Heart / Thorax 3-vessel view: Normal 6-xzqfhp-snaedrd view: normal Stomach: Appears normal Bladder: Appears [...] here in 6 weeks. Coding ====== Description: 31412-43 Follow Up Cable Systems Installer: Yessi August RDMS Physician: Denzel Edgar MD, FACOG Electronically signed by: Denzel Edgar MD, FACOG at: 14:12 Procedure Note Erik Edgar MD - 05/02/2025 PAT NAME: BENJY TOURE [facility] REC#: [id number] DA: 2005 PAT GEND: F PAT TYPE: O EXAM RODRIGO: [id number] REF PHYS JENIFER CHRISTIANSON Comparison Studies The findings of this study are compared to the prior ultrasound studydated 03/21/25 Patient Status Outpatient Indication ======== Cholestasis. Family hx renal agenesis. Maternal Assessment Fwqnmz251 cm Height (ft)5 ft Height (in)6 in Quxalq36 kg Weight (lb)140 lb BMI22.60 kg/m Method ======= Transabdominal ultrasound examination. View: Adequate view ========= Wallace . Number of fetuses: 1 Dating ====== Method of dating:based on stated TAHIR GA by prior ihsismvaij38 w + 6 d TAHIR by prior assessment:08/16/2025 Ultrasound examination on:05/02/2025 GA by U/S based upon:AC, BPD, Femur, HC GA by U/S25 w + 6 d TAHIR by U/S:08/09/2025 Previous dating:based on stated TAHIR, selected on 03/21/2025 Agreed TAHIR of previous datin08/16/2025 Assigned:based on stated TAHIR, selected on 05/02/2025 Assigned GA24 w + 6 d Assigned TAHIR:08/16/2025 eveslf115 d Biometry Standard BPD63.2 mm 25w 4d 69% Hadlock OFD88.0 mm 28w 2d >99% Lisa HC246.1 mm 26w 5d 89% Hadlock Cerebellum tr30.4 mm 26w 2d 91% Hill AC211.2 mm 25w 5d 66% Hadlock Femur45.9 mm 25w 2d 48% Hadlock Pxnrikf28.3 mm 26w 2d 86% Lisa HC / AC1.17 TGC561 g 25w 2d 72% Hadlock EFW (lb)1 lb EFW (oz)13 oz EFW by:Hadlock (GPC-KQ-RN-FL) Extended Cav. septi pel. tr4.8 mm Vp3.6 mm CM6.1 mm 50% Nicolaides Head / Face / Neck Cephalic index0.72 2% Nicolaides Extremities / Bony Struc FL / BPD0.73 FL / HC0.19 FL / AC0.22 Other Structures LNO837 bpm General Evaluation Cardiac activity present. FHR 144 bpm. movements present. Presentation cephalic. Placenta Placental site: anterior. Amniotic fluid Amount of AF: normal. MVP 6.6 cm. Anatomy Cranium:Normal Cavum septi pellucidi:Normal Cerebellum:Normal Cisterna magna:Normal Head / Neck Rt lateral ventricle:Normal Lt lateral ventricle:Normal Lips:Normal Profile:Normal Nose:Normal 4-chamber view:Appears normal RVOT view:Normal LVOT view:Normal Heart / Thorax 3-vessel view:Normal 7-obbcuk-umnvgik view:normal Stomach:Appears normal Bladder:Appears normal Abdomen Rt kidney:visualized Rt kidney:pelvic kidney, posterior to the bladder Lt kidney:visualized Lt kidney:3.5 mm , dilatation Gender:male Wants to know gender:yes Maternal Structures Uterus / Cervix Approach:Transabdominal Cervical oxpxfx86.3 mm Consultation / Office Visit Office note to follow Impression ========= Size consistent with dates. Right kidney appears midline and pelvic. Left kidney appears normal. No other anomalies were identified. No markers for trisomy. The cervical length appears normal. Recommendation We recommend evaluation in 6 weeks. Follow up appointment scheduled here in 6 weeks. Coding ====== Description:34235-46 Follow Up Cable Systems Installer: Yessi August RDMS Physician: Denzel Edgar MD, FACOG Electronically signed by: Denzel Edgar MD, FACOG at: 14:12 us Batool Frederick MD [facility] US ORDERABLES Final Result documented in this encounter Visit Diagnoses Diagnosis Intrahepatic cholestasis of in second trimester documented in this encounter Care Teams Environmental Specialist Relationship Specialty Start Date End Date Provider, No Known [facility] [place] [address] PCP - General 02/01/25 documented as of this encounter
--- OUTSIDE RECORDS SUMMARY | 2025-05-07 09:30 | XMS_ITS | Encounter Summary ---
Author Organization [place] Address [address] [facility] [place] [address] Care Team Providers Care Bulk Plant Manager Name Role Phone Unavailable Primary Care Provider Sergio e Encounter Details Date Type Department Care Team (Latest Contact Info) Description 05/07/2025 9:30 AM EDT - 05/07/2025 11:59 PM EDT Hospital Encounter [facility] [place] [address] Intrahepatic cholestasis of , first trimester [...] encounter Medications at Time of Discharge b pvwqrdw-C-yhfsd acid (NEPHROCAP) 1 mg Oral Capsule Take [...] - 10 umol/L 05/08/2025 5:41 PM EDT [employer] Comment: INTERPRETIVE INFORMATION: Bile Acids, Total Reference Interval applies to fasting specimens. Performed By: [facility] [address] [place] [address] Tip Cementer: Kiet Sanon MD, PhD CLIA Number: [id number] Blood VENOUS BLOOD / Unknown Venipuncture / Unknown 05/07/2025 10:05 AM EDT 05/07/2025 10:59 AM EDT us Not In Epic Provider CHEMISTRY ORDERABLES Final Result [facility] [address] [place] [address] * (ABNORMAL) COMPREHENSIVE METABOLIC PANEL (05/07/2025 10:05 AM EDT) Pathologist [facility] Sodium 137 136 - 145 mmol/L 05/07/2025 [...] 05/07/2025 11:35 AM EDT [facility] Albumin 4.0 3.5 - 5.2 gm/dL 05/07/2025 11:35 AM EDT [facility] Total Protein 6.4 6.4 - 8.3 gm/dL [...] 05/07/2025 11:35 AM EDT [facility] eGFR (CKD-EPIcr 2020) 146 >=60 mL/min/1.7 3 m2 05/07/2025 11:35 AM EDT [facility] Comment:Estimated GFR was ca lculated using the CKD-EPIcr (2020) equation refit without race. The equation is recommended by the National Kidney Foundation - [place] Society of Nephrology Task Force. Blood VENOUS BLOOD / Unknown Venipuncture / Unknown 05/07/2025 10:05 AM EDT 05/07/2025 11:02 AM EDT us Not In Epic Provider CHEMISTRY ORDERABLES Final Result [facility] [address] [facility] , [address] [place] [id number] documented in this encounter Visit Diagnoses Diagnosis Intrahepatic cholestasis of , first trimester- Primary documented in this encounter
--- OUTSIDE RECORDS SUMMARY | 2025-06-13 14:09 | XMS_ITS | Encounter Summary ---
[facility] Address [address] [place] [address] Care Team Providers Care Detention Attendant Name Role Phone Provider, No Known Primary Care Provider Unavail able Reason for Referral * Diagnostic Imaging (Routine) - Closed Specialty Diagnoses / Procedures Referred By Conthafsa t Referred To Contact Radiology Diagnoses Intrahepatic cholestasis of in second trimester , unspecified gestational age Procedures [facility] Erik Edgar MD [address] [facility] [address] [place] [address] Phone: tel: fax: [facility] [address] [place] [address] Phone: tel: Referral ID Status Reason Start Date Expiration Date Visits Re quested Visits Authorized [id number] Closed 05/02/2025 08/01/2026 1 1 Reason for Visit * Diagnostic Imaging (Routine) - Closed Specialty Diagnoses / Procedures Referred By Conthafsa t Referred To Contact Radiology Diagnoses Intrahepatic cholestasis of in second trimester , unspecified gestational age Procedures [facility] Erik Edgar MD [address] [facility] [address] [place] [address] Phone: tel: fax: [facility] [address] [place] [address] Phone: tel: Referral ID Status Reason Start Date Expiration Date Visits Re quested Visits Authorized [id number] Closed 05/02/2025 08/01/2026 1 1 Encounter Details Date Type Department Care Team (Late st Contact Info) Description 06/13/2025 2:09 PM EDT - 06/13/2025 11:59 PM EDT Hospital Encounter [facility] [address] [place] [address] Erki Edgar MD [address] [facility] [address] [place] [address] Intrahepatic cholestasis of in second [...] this encounter Medications at Time of Discharge Kyilwgtw-Ovp-Wg-F A ( 1 + IRON PO) Take 1 tablet by mouth Daily. 11/27/2024 ursodiol (ACTIGALL) 300 MG capsule Take 1 capsule by mouth 2 (Two) Times a Day. 03/19/2025 documented as of this encounter Plan of Treatment Not on file documented as of this encounter Procedures Procedure Name Priority Date/Time Associated Diagnosis Comments [facility] Routine 06/13/2025 2:37 PM EDT Intrahepatic cholestasis of in second trimester , unspecified gestational age documented in this encounter Results * [facility] (06/13/2025 2:37 PM EDT) Anatomical Region Laterality Modality Ultrasound 06/13/2025 2:23 PM EDT Narrative 06/13/2025 2:39 PM EDT PAT NAME: BENJY TOURE MED REC#: [id number] DA: [id number] PAT GEND: F PAT TYPE: O EXAM RODRIGO: [id number] REF PHYS JENIFER CHRISTIANSON Comparison Studies The [...] EFW (oz) 14 oz EFW by: Hadlock (UAI-AD-AP-FL) Extended Cav. septi pel. tr 7.3 mm [...] Normal Heart / Thorax 3-vessel view: Normal 1-xkwjhr-qgcanjs view: normal Stomach: Appears normal Bladder: Appears [...] Follow-up as clinically indicated. Coding ======= Description: 36584-56 Follow Up Ultrasound Description: 27652-60 BPP without NST Make Up Arranger: Yessi August RDMS Physician: Tab Chiu MD, FACOG Electronically signed by: Tab Chiu MD, FACOG at: 14:39 Procedure Note Tab Chiu MD - 06/13/2025 PAT NAME: BENJY TOURE MED REC#: [id number] DA: 2005 PAT GEND: F PAT TYPE: O EXAM RODRIGO: [id number] REF PHYS JENIFER CHRISTIANSON Comparison Studies The findings of this study are compared to the prior ultrasound studydated 05/02/25 Patient Status Outpatient Indication ======== Follow up pelvic kidney. Cholestasis. Maternal Assessment Bxqsie658 cm Height (ft)5 ft Height (in)6 in Oosfvy63 kg Weight (lb)147 lb BMI23.73 kg/m Method ======= Transabdominal ultrasound examination. View: Adequate view ========= Wallace . Number of fetuses: 1 Dating ====== Method of dating:based on stated TAHIR GA by prior [id number] w + 6 d TAHIR by prior assessment:08/16/2025 Ultrasound examination on:06/13/2025 GA by U/S based upon:AC, BPD, Femur, HC GA by U/S32 w + 4 d TAHIR by U/S:08/04/2025 Previous dating:based on stated TAHIR, selected on 05/02/2025 Agreed TAHIR of previous datin08/16/2025 Assigned:based on stated TAHIR, selected on 06/13/2025 Assigned GA30 w + 6 d Assigned TAHIR:08/16/2025 [id number] d Biometry Standard BPD84.0 mm 33w 6d 98% Hadlock SKU593.7 mm 36w 2d >99% Lisa HC311.1 mm 34w 6d 97% Hadlock Cerebellum tr42.4 mm 33w 3d 97% Hill AC263.6 mm 30w 3d 35% Hadlock Femur59.7 mm 31w 1d 42% Hadlock Xmuirfx12.8 mm 31w 6d 80% Lisa HC / AC1.18 EFW1,749 g 31w 0d 54% Hadlock EFW (lb)3 lb EFW (oz)14 oz EFW by:Hadlock (NHR-ZG-MI-FL) Extended Cav. septi pel. tr7.3 mm CM9.7 mm 97% Nicolaides Head / Face / Neck Cephalic index0.77 21% Nicolaides Extremities / Bony Struc FL / BPD0.71 FL / HC0.19 FL / AC0.23 Other Structures KQL727 bpm General Evaluation Cardiac activity present. FHR [...] LVOT view:Normal Heart / Thorax 3-vessel view:Normal 6-lhehue-vcwwclg view:normal Stomach:Appears normal Bladder:Appears normal Abdomen Rt [...] Recommendation Follow-up as clinically indicated. Coding ======= Description:13845-91 Follow Up Ultrasound Description:38625-25 BPP without NST Make Up Arranger: Yessi August RDMS Physician: Tab Chiu MD, FACOG Electronically signed by: Tab Chiu MD, FACOG at: 14:39 us Erik Edgar MD IMG US ORDERABLES Final Re sult documented in this encounter Visit Diagnoses Diagnosis Intrahepatic cholestasis of in second trimester , unspecified gestational age documented in this encounter Care Teams Detention Attendant Relationship Specialty Start Date End Date Provider, [place] [address] PCP - General 02/01/25 documented as of this encounter
--- OUTSIDE RECORDS SUMMARY | 2025-06-13 14:15 | XMS_ITS | Encounter Summary ---
Author Organization [facility] yste Address [address] [place] [address] Care Team Providers Care Nurse Informaticist Name Role Phone Provider, No Known Primary Care Provider Unavail able Reason for Visit * Reason Comments cholestasis, RT pelvic kidney Encounter Details Date Type Department Care Team (Late st Contact Info) Description 06/13/2025 2:15 PM EDT Office Visit [facility] [address] [place] [address] Tab Chiu MD [address] [facility] [address] [place] [address] renal anomaly, single gestation (Primary Dx) Social History Tobacco Use Types [...] Sign Reading Time Taken Comments Blood Pressure 102/58 06/13/2025 2:16 PM EDT Pulse - - Temperature - - Respiratory Rate - - Oxygen Saturation - - Inhaled Oxygen Concentration - - Weight 66.9 kg (147 lb 6.4 oz) 06/13/2025 2:16 P M EDT Height - - Body Mass Index 23.43 03/21/2025 12:51 PM EDT documented in this encounter Progress Notes * Karina Mata RN - 06/13/2025 2:15 PM EDT Denies vaginal bleeding, leaking fluid, and contractions. Endorses normal movement. NIPT negative. Next OB follow-up appointment with Dr. Simms on 06/19/2025. * Tab Chiu MD - 06/13/2025 2:15 PM EDT Documentation of the ultrasound findings, images, and interpretations will be available in the patient's Viewpoint report which is located in the imaging tab in chart review. documented in this encounter Plan of Treatment Not on file documented as of this encounter Visit Diagnoses Diagnosis renal anomaly, single gestation- Primary documented in this encounter Care Teams Nurse Informaticist Relationship Specialty Start Date End Date Provider, [place] [address] PCP - General 02/01/25 documented as of this encounter
--- OUTSIDE RECORDS SUMMARY | 2025-06-27 07:12 | XMS_ITS | Encounter Summary ---
Author Organization [place] [address] Care Team Providers Care Body Design Checker Name Role Phone Unavailable Primary Care Provider Unavailabl e Reason for Visit * Reason Comments Rule Out ROM Encounter Details Date Type Department Care Team (Latest Contact Info) Description 06/27/2025 7:12 AM EDT - 06/27/2025 8:00 AM EDT Hospital Encounter EDG LDRP One [facility] [place] [address] Asael Beard MD [address] [place] [address] [place] [address] Discharge Disposition: Home or Self [...] 06/27/2025 7:28 AM Luis Tello RN * [place] Suicide Severity Rating Scale (Q shift for [...] Perez RN - 06/27/2025 7:[address] [facility] Discharge Instructions Julianna Toure [phone] [facility] [place] [address] Activity Restrictions: No Restrictions Diet: regular Call [...] encounter Medications at Time of Discharge b pjzrewo-G-eodql acid (NEPHROCAP) 1 mg Oral Capsule Take [...] Means Destination Comment s Home or Self [facility] documented in this encounter Progress Notes * Leticia Perez RN - 06/27/2025 8:00 AM EDT 06/27/25 0748 Heart Rate Mode External US;Removed Baseline Rate 135 bpm Baseline Classification Normal Variability Moderate Pattern A Movement Present RN assessed heart tracing? Yes Uterine Activity Mode Palpation;[place];Removed Contraction Frequency none Contraction Intensity N/A Resting [...] arriving to work. EFM and TOCO to [employer]. Provider aware. documented in this encounter Nursing Notes * Destiny Agosto MD - 06/27/2025 8:[address] [facility] OB Triage Progress Note S: Pt [...] times daily. 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 Moodand affect are [...] POC Yellow Color 06/27/2025 7:35 AM EDT [facility] UA Appear POC Clear Clear 06/27/2025 7:35 AM EDT [facility] UA Blood POC Negative Negative 06/27/2025 7:35 AM EDT [facility] UA pH POC 6.5 5.0 - 8.0 pH 06/27/2025 7:35 AM EDT [facility] UA Urobilinogen POC 0.2 0.2, 1.0 06/27/2025 7:35 AM EDT [facility] UA Nitrite POC Negative Negative 06/27/2025 7:35 AM EDT [facility] UA Leuk Est POC Negative Negative 7:35 AM EDT [facility] UA SG POC 1.025 1.001 - 1.035 no units 06/27/2025 7:35 AM EDT [facility] UA Gluc POC Negative Negative mg/dL 06/27/2025 7:35 AM EDT [facility] UA Protein POC Negative Negative mg/dL 06/27/2025 7:35 AM EDT [facility] UA Ketones POC Negative Negative mg/dL 06/27/2025 7:35 AM EDT [facility] Urine STRUCTURE OF URINARY TRACT PROPER / Unknown 06/27/2025 7:33 AM EDT 06/27/2025 7:35 AM EDT us Asael Beard MD POINT OF CARE TEST ORD ERABLES Final Result [facility] [address] [place] [id number] documented in this encounter Visit Diagnoses Not on filedocumented in this encounter Orders Discharge Count Last Ordered Date First Orde red Date DISCHARGE PATIENT 1 06/27/2025 documented in this encounter
--- OUTSIDE RECORDS SUMMARY | 2025-06-28 11:34 | XMS_ITS | Clinical Summary ---
Author Organization [facility] Address [address] [place] [address] Phone Care Team Providers Care Jigsawyer Name Role Phone Unavailable Primary Care Provider Unavailabl e Allergies Active Allergy Reactions Criticality Noted Date Comments Amoxicillin-Pot Clavulanate Rash Low 03/16/20 24 Medications FLUoxetine (PROZAC) 10 mg Oral CapsuleIndicati ons:Anxiety and depression Take 1 Capsule by mouth daily. 90 Capsule 3 Active Additional Information Patient not taking.Reason: Therapy Completed, Reported on 05/14/2024 b xdehtyn-X-ezknw acid (NEPHROCAP) 1 mg Oral Capsule Take [...] Active Problems Problem Noted Date Diagnosed Date Vaginal discharge during in third trim nay 06/28/2025 Abdominal pain during in second trimes ter 04/12/2025 Anxiety and depression 03/16/2024 Estimated Date of Delivery Comme nts Yes 08/16/2025 Based on Other B asis Encounters Date Type Department Care Team Description 06/27/2025 7:12 AM EDT - 06/27/2025 8:00 AM EDT Hospital Encounter EDG LDRP [facility] [address] [place], [place] [address] Asael Beard MD Discharge Disposition: Home or Self Care 06/27/2025 Travel 05/07/2025 9:30 AM EDT - 05/07/2025 11:59 PM EDT Hospital Encounter EDG LABORATORY [facility] [address] [place] [place] [address] Intrahepatic cholestasis of , first trimester (Primary Dx) Discharge Disposition: Home or Self Care 04/12/2025 11:32 AM EDT - 04/12/2025 12:44 PM EDT Hospital Encounter EDG LDRP [facility] [place] [address] Asael Beard MD Discharge Disposition: Home or [...] Estimated Date of Delivery 04/12/2025 - Present (06/28/2025) 08/16/2025 (set by Dasha Maravilla, RN on 04/12/2025 based on Other Basis) Dating Summary Based On TAHIR GA Diff Other Basis 08/16/2025 Working Last Menstrual Period on 05/17/2024 (Approximate ) 02/21/2025 +25w1d Vitals Pregravid Weight Height TWG (As of 06/28/2025) Pregrav id BMI 5' 5 (1.651 m) Date GA Fund Present FHR Mvmt BP Weight Edema Alb Glu Ket Dil/ Eff/Sta 22w0d Inpatient data not displayed here. See encounter summary. 32w6d Inpatient data not displayed here. See encounter summary. Notes Progress Notes - Hospital En counter - 06/27/2025 - GA:32w6d 06/27/2025 - 32w6d - Leticia Perez RN After completion of the Medical Screening Evaluation, it has been determined that a medical emergency does not exist and the patient is not in active labor, and therefore the patient may be discharged home. Discharge instructions given, verbalized understanding. To keep next scheduled appointment. Reinforced kick counts. To call provider with any further questions or concerns. Discharged home, ambulatory. 06/27/2025 - 32w6d - Leticia Perez RN Arrived to triage c/o leaking. First noticed when awoke this morning at 0530, underwear were wet. Fluid down her leg when she stood up. Happened again when she went to the bathroom after arriving to work. EFM and TOCO to [employer]. Provider aware. Progress Notes - Hospital En counter - 04/12/2025 - GA:22w0d 04/12/2025 - w0d - Blank Goldman RN Discharge order received. Instructions, precautions and [...] 18 06/27/2025 7:29 AM EDT Oxygen Saturation 100% 06/08/2024 4:12 PM EDT Inhaled Oxygen Concentration - - Weight 69.4 kg (153 lb) 06/27/2025 7:29 AM EDT Height 165.1 cm (5' 5 ) 06/27/2025 7:29 AM EDT Body Mass Index 25.46 06/27/2025 7:29 AM EDT Plan of Treatment Health Maintenance Due Date Last Done Comments HPV (1 - 3-dose series) 2020 Meningococcal B Vaccine (1 of 2 - Standard) 2021 Annual Wellness Exam 03/16/2025 03/16/2024 COVID-19 Vaccine (3 - season) 2025 06/05/2022, 05/11/2022 Influenza Vaccine (#1) 2025 , 07/22/2020, 08/22/2019, [...] ideal body weight General Orquidea Bueno, CARMEN Procedures Procedure Name Priority Date/Time Associated Diagnosis Comments URINALYSIS POC Routine 06/27/2025 7:33 AM EDT BILE ACIDS TOTAL -REF LAB Callback 05/07/2025 10:05 AM EDT Intrahepatic cholestasis of , first trimester COMPREHENSIVE METABOLIC PANEL Callback 05/07/2025 10:05 AM EDT Intrahepatic cholestasis of , first trimester from Last 3 Months Results * URINALYSIS POC (06/27/2025 7:33 AM EDT) UA Color POC Yellow Color 06/27/2025 7:35 AM EDT [facility] UA Appear POC Clear Clear 06/27/2025 7:35 AM EDT [facility] UA Blood POC Negative Negative 06/27/2025 7:35 AM EDT [facility] UA pH POC 6.5 5.0 - 8.0 pH 06/27/2025 7:35 AM EDT [facility] UA Urobilinogen POC 0.2 0.2, 1.0 06/27/2025 7:35 AM EDT [facility] UA Nitrite POC Negative Negative 06/27/2025 7:35 AM EDT [facility] UA Leuk Est POC Negative Negative 7:35 AM EDT [facility] UA SG POC 1.025 1.001 - 1.035 no units 06/27/2025 7:35 AM EDT [facility] UA Gluc POC Negative Negative mg/dL 06/27/2025 7:35 AM EDT [facility] UA Protein POC Negative Negative mg/dL 06/27/2025 7:35 AM EDT [facility] UA Ketones POC Negative Negative mg/dL 06/27/2025 7:35 AM EDT [facility] Urine STRUCTURE OF URINARY TRACT PROPER / Unknown 06/27/2025 7:33 AM EDT 06/27/2025 7:35 AM EDT us Asael Beard MD POINT OF CARE TEST ORD ERABLES Final Result [facility] [address] [place] [id number] * BILE ACIDS TOTAL -REF LAB (05/07/2025 10:05 AM EDT) Bile Acids 8 0 - 10 umol/L 05/08/2025 5:41 PM EDT [facility] Comment: INTERPRETIVE INFORMATION: Bile Acids, Total Reference Interval applies to fasting specimens. Performed By: [facility] [address] [place] [id number] Black Puller: Kiet Sanon MD, PhD CLIA Number: [id number] Blood VENOUS BLOOD / Unknown Venipuncture / Unknown 05/07/2025 10:05 AM EDT 05/07/2025 10:59 AM EDT us Not In Epic Provider CHEMISTRY ORDERABLES Final Result [facility] [address] [place] [address] * (ABNORMAL) COMPREHENSIVE METABOLIC PANEL (05/07/2025 10:05 AM EDT) Sodium 137 136 - 145 mmol/L 05/07/2025 [...] AM EDT [facility] Total Protein 6.4 6.4 - 8.3 gm/dL 05/07/2025 11:35 AM EDT [facility] Bili Total 0.2 0.2 - 1.3 mg/dL 05/07/2025 11:35 AM EDT [facility] ALT 11 <=41 U/L 05/07/2025 11:35 AM EDT [facility] AST 14 <=40 U/L 05/07/2025 11:35 AM EDT [facility] [employer] Alk Phos 88 36 - 123 U/L 05/07/2025 11:35 AM EDT [facility] eGFR (CKD-EPIcr 2020) 146 >=60 mL/min/1.7 3 m2 05/07/2025 11:35 AM EDT [facility] Comment:Estimated GFR was ca lculated using the CKD-EPIcr (2020) equation refit without race. The equation is recommended by the National Kidney Foundation - [place] [employer] of Nephrology Task Force. Blood VENOUS BLOOD / Unknown Venipuncture / Unknown 05/07/2025 10:05 AM EDT 05/07/2025 11:02 AM EDT us Not In Epic Provider CHEMISTRY ORDERABLES Final Result [facility] [employer] [address] [facility] , [place] [address] from Last 3 Months Insurance ANTHEM PPO ANTHEM PPO
--- OUTSIDE RECORDS SUMMARY | 2025-06-28 11:34 | XMS_ITS | Encounter Summary ---
[facility] [address] [place] [address] Care Team Providers Care Architectural Project Manager Name Role Phone Provider, No Known [...] on filedocumented in this encounter Care Teams Architectural Project Manager Relationship Specialty Start Date End Date Provider, [place] [address] PCP - General 02/01/25 documented as of this encounter
--- OUTSIDE RECORDS SUMMARY | 2025-06-28 11:34 | XMS_ITS | Clinical Summary ---
[facility] [address] [place] [address] Care Team Providers Care Sales Operations Coordinator Name Role Phone Provider, No Known Primary Care Provider Unavail able Allergies Active Allergy Reactions Criticality Noted Date Comments Amoxicillin-Pot Clavulanate Rash Low 08/17/20 10 Medications ursodiol (ACTIGALL) 300 MG capsule Take 1 capsule by mouth 2 (Two) Times a Day. 03/19/2025 Active Gkuyzvqm-Wcy-Fz -FA ( 1 + IRON PO) Take [...] Encounters Date Type Department Care Team Description 06/13/2025 2:15 PM EDT Office Visit [facility] [address] [facility] [address] [place] [phone] Tab Chiu MD renal anomaly, single gestation (Primary Dx) 06/13/2025 2:09 PM EDT - 06/13/2025 11:59 PM EDT Hospital Encounter [facility] [address] [place] [address] Erik Edgar MD Intrahepatic cholestasis of in second trimester; , unspecified gestational age Discharge Disposition: Home or Self Care 06/13/2025 Travel 05/02/2025 12:45 PM EDT - 05/02/2025 11:59 PM EDT Hospital Encounter [facility] [address] [place] [address] Batool Frederick MD Intrahepatic cholestasis of in second trimester Discharge Disposition: Home or Self Care 05/02/2025 12:45 PM EDT Office Visit [facility] MATERNAL MEDICINE [address] [place] [address] Erik Edgar MD Intrahepatic cholestasis of in second trimester (Primary Dx); , unspecified gestational age; renal anomaly, single gestation 05/02/2025 Travel from Last 3 Months Family History [...] oz) 06/13/2025 2:16 P M EDT Height 168.9 cm (5' 6.5 ) 03/21/2025 12:51 PM ED T Body Mass Index 23.43 03/21/2025 12:51 PM EDT Plan of Treatment Health Maintenance Due Date Last Done Comments HPV VACCINES (1 - 3-dose series) 2020 MENINGOCOCCAL B VACCINE (1 of 2 - Standard) 2021 ANNUAL PHYSICAL 02/01/2025 CHLAMYDIA SCREENING 02/01/2025 COVID-19 Vaccine (3 - season) 2025 06/05/2022, 05/11/2022 RSV Vaccine - Adults (1 - Risk [...] Priority Date/Time Associated Diagnosis Comments [facility] Routine 06/13/2025 2:37 PM EDT Intrahepatic cholestasis of in second trimester , unspecified gestational age [facility] Routine 05/02/2025 1:30 PM EDT Intrahepatic cholestasis of in second trimester from Last 3 Months Results * [facility] (06/13/2025 2:37 PM EDT) Only the most recent of2 resultswithin the time period is included. Anatomical Region Laterality Modality Ultrasound 06/13/2025 2:23 PM EDT Narrative 06/13/2025 2:39 PM EDT PAT NAME: BENJY TOURE [facility] REC#: [id number] DA: [id number] PAT GEND: F PAT TYPE: O EXAM RODRIGO: [id number] REF PHYS JENIFER CHRISTIANSON Comparison Studies The [...] EFW (oz) 14 oz EFW by: Hadlock ([id number]-[id number]-FL) Extended Cav. septi pel. tr 7.3 mm [...] Normal Heart / Thorax 3-vessel view: Normal 6-etprvk-tgtrxmj view: normal Stomach: Appears normal Bladder: Appears [...] Follow-up as clinically indicated. Coding ======= Description: 09591-86 Follow Up Ultrasound Description: 02552-37 BPP without NST Irrigation System Installer: Yessi August RDMS Physician: Tab Chiu MD, FACOG Electronically signed by: Tab Chiu MD, FACOG at: 14:39 Procedure Note Tab Chiu MD - 06/13/2025 PAT NAME: BENJY TOURE MED REC#: [id number] DA: [id number] PAT GEND: F PAT TYPE: O EXAM RODRIGO: [id number] REF PHYS JENIFER CHRISTIANSON Comparison Studies The findings of this study are compared to the prior ultrasound studydated 05/02/25 Patient Status Outpatient Indication ======== Follow up pelvic kidney. Cholestasis. Maternal Assessment Djltmz083 cm Height (ft)5 ft Height (in)6 in Qvtmip50 kg Weight (lb)147 lb BMI23.73 kg/m Method ======= Transabdominal ultrasound examination. View: Adequate view ========= Wallace . Number of fetuses: 1 Dating ====== Method of dating:based on stated TAHIR GA by prior [id number] w + 6 d TAHIR by prior assessment:08/16/2025 Ultrasound examination on:06/13/2025 GA by U/S based upon:AC, BPD, Femur, HC GA by U/S32 w + 4 d TAHIR by U/S:08/04/2025 Previous dating:based on stated TAHIR, selected on 05/02/2025 Agreed TAHIR of previous datin08/16/2025 Assigned:based on stated TAHIR, selected on 06/13/2025 Assigned GA30 w + 6 d Assigned TAHIR:08/16/2025 [id number] d Biometry Standard BPD84.0 mm 33w 6d 98% Hadlock GEZ470.7 mm 36w 2d >99% Lisa HC311.1 mm 34w 6d 97% Hadlock Cerebellum tr42.4 mm 33w 3d 97% Hill AC263.6 mm 30w 3d 35% Hadlock Femur59.7 mm 31w 1d 42% Hadlock Sezniis84.8 mm 31w 6d 80% Lisa HC / AC1.18 EFW1,749 g 31w 0d 54% Hadlock EFW (lb)3 lb EFW (oz)14 oz EFW by:Hadlock ([id number]-[id number]-FL) Extended Cav. septi pel. tr7.3 mm CM9.7 mm 97% Nicolaides Head / Face / Neck Cephalic index0.77 21% Nicolaides Extremities / Bony Struc FL / BPD0.71 FL / HC0.19 FL / AC0.23 Other Structures [id number] bpm General Evaluation Cardiac activity present. FHR [...] LVOT view:Normal Heart / Thorax 3-vessel view:Normal 3-kbjmvj-xuiskyu view:normal Stomach:Appears normal Bladder:Appears normal Abdomen Rt [...] Recommendation Follow-up as clinically indicated. Coding ======= Description:97961-38 Follow Up Ultrasound Description:30685-29 BPP without NST Irrigation System Installer: Yessi August RDSD Physician: Tab Chiu MD, FACOG Electronically signed by: Tab Chiu MD, FACOG at: 14:39 Erik Edgar MD [facility] ORDERABLES Final Re sult from Last [address] [facility] PPO Member Subscriber Plan / Payer (Ef fective 2018-Present) Name:Benjy Toure Relation to Subscriber:Child Name:Prema Toure Date of :1975 (Home) Address: [address] [place] [address] Payer ID:[id number] (NAIC) Type:Not on file Address: [facility] [id number] [place] [phone] Care Teams Sales Operations Coordinator Relationship Specialty Start Date End Date Provider, [place] [address] PCP - General 02/01/25
--- OUTSIDE RECORDS SUMMARY | 2025-06-28 11:34 | XMS_ITS | Encounter Summary ---
Author Organization [facility] [address] Care Team Providers Care Marketing Project Specialist Name Role Phone Unavailable Primary Care Provider Unavailabl e Encounter Details Date Type Department Care Team (Latest Contact Info) Description 06/27/2025 Travel Social History Tobacco Use Types Packs/Day [...] 06/27/2025 7:28 AM Luis Tello RN * [place] Suicide Severity Rating Scale (Q shift for moderate and high) Question Answer Date of Assessment Author 1. In the past month, have y ou wished you were or wished you could go to sleep and not wake up? 0 06/27/2025 7:28 AM Dawna Tello RN 2. In the past month, have y ou actually had any thoughts of killing yourself? (If no, skip to question 6) 0 06/27/2025 7:28 AM Leticia Tello RN 6. Have you ever done anythi ng, started to do anything, or prepared to do anything to end your life? 0 06/27/2025 7:28 AM Leticia Tello RN documented as of this encounter Mental Status * Cognitive and Functional Status Question Answer Entry Date Author Because of a physical, menta l or emotional condition, does this person have difficulty doing errands alone such as visiting a doctor's office or shopping? No 06/27/2025 7:50 AM Leticia Tello RN Because of a physical, menta l or emotional condition, does this person have serious difficulty concentrating, remembering or making decisions? No 06/27/2025 7:50 AM Leticia Frank RN * Because of a physical, mental or emotional condition, does this person have serious difficulty concentrating, remembering or making decisions? Answer Entry Date Author No 06/27/2025 7:50 AM Luis Tello RN documented in this encounter Plan of Treatment Not on file documented as of this encounter Goals Goal Patient Goal Type Associated Problems Recent Progress Patient-Stated? Author Maintain a healthy diet, exercise regularly and maintain an ideal body weight General No Orquidea Vasques, CARMEN documented as of this encounter Visit Diagnoses Not on filedocumented in this encounter
--- OUTSIDE RECORDS SUMMARY | 2025-06-28 11:34 | XMS_ITS | Encounter Summary ---
[facility] Address [address] [place] [address] Care Team Providers Care Shank Faker Name Role Phone Provider, No Known Primary Care Provider Unavail able Encounter Details Date Type Department Care Team (Latest Contact Info) Description 06/13/2025 Travel Social History Tobacco Use Types Packs/Day [...] on filedocumented in this encounter Care Teams Shank Faker Relationship Specialty Start Date End Date Provider, [place] [address] PCP - General 02/01/25 documented as of this encounter
[2025-06-28 12:41] LABS: Albumin Level 3.5 g/dl (3.5-5.0); Chloride 105 mmol/L (98-107); Potassium 3.8 mmoL/L (3.5-5.1); Sodium 136 mmol/L (136-145)
[2025-06-28 12:44] LABS: Alanine Aminotransferase 13 U/L (12-78); Albumin/Globulin Ratio 1.5 (1.1-1.8); Alkaline Phosphatase 103 U/L (38-126); Anion Gap 11.8 mEq/L (5-15); Aspartate Amino Transferase 27 U/L (14-36); Bilirubin,Total 0.3 mg/dl (0.2-1.3); Blood Urea Nitrogen 6 mg/dl (7-17); Carbon Dioxide 23 mmol/L (22.0-30.0); Creatinine,Serum 0.40 mg/dl (0.52-1.04); Estimated Glomerular Filt Rate 203 ml/min (>60); GFR (African American) 246 ML/MIN (>60); Globulin 2.4 g/dL (1.3-3.2); Glucose 73 mg/dl (74-100); Total Protein,Serum 5.9 g/dl (6.3-8.2)
[2025-06-28 12:45] LABS: Calcium 9.1 mg/dl (8.4-10.2)
== END 2025-06-28 23:59 | disposition home or self-care (01) ==
LOC: LAB 11:31
PROVIDERS: Visit Provider Obstetrics & Gynecology
DX: O26.643 Intrahepatic cholestasis of pregnancy, third trimester (principal)
CPT/HCPCS: 36415; 80053; 82239

== ENCOUNTER 2025-07-02 09:53 | Outpatient (CLI) | payer BC, SELFPAY ==
--- OUTSIDE RECORDS SUMMARY | 2025-05-02 12:45 | XMS_ITS | Encounter Summary ---
Author Organization [facility] Address [address] [place] [address] Care Team Providers Care Tourist Escort Name Role Phone Provider, No Known Primary Care Provider Unavail able Reason for Referral * Diagnostic Imaging (Routine) - Closed Specialty Diagnoses / Procedures Referred By Kb marino Referred To Contact Radiology Diagnoses Intrahepatic cholestasis of in second trimester Procedures [facility] Diagnostic [place] Batool Frederick MD [address] [address] Phone: tel: fax: Referral ID Status Reason Start Date Expiration Date Visits Re quested Visits Authorized Closed 03/27/2025 06/26/2026 1 1 Reason for Visit * Diagnostic Imaging (Routine) - Closed Specialty Diagnoses / Procedures Referred By Kb marino Referred To Contact Radiology Diagnoses Intrahepatic cholestasis of in second trimester Procedures [facility] Diagnostic [place] Batool Frederick MD [address] [id number] Phone: tel: fax: Referral ID Status Reason Start Date Expiration Date Visits Re quested Visits Authorized Closed 03/27/2025 06/26/2026 1 1 Encounter Details Date Type Department Care Team (Late st Contact Info) Description 05/02/2025 12:45 PM EDT - 05/02/2025 11:59 PM EDT Hospital Encounter [facility] [address] [place] [phone] Batool Frederick MD [address] [place] [address] Intrahepatic cholestasis of in second trimester Discharge [...] this encounter Medications at Time of Discharge Xuxxkbhw-Wet-Ny-F A ( 1 + IRON PO) Take 1 tablet by mouth Daily. 11/27/2024 ursodiol (ACTIGALL) 300 MG capsule Take 1 capsule by mouth 2 (Two) Times a Day. 03/19/2025 documented as of this encounter Plan of Treatment Not on file documented as of this encounter Procedures Procedure Name Priority Date/Time Associated Diagnosis Comments [facility] Routine 05/02/2025 1:30 PM EDT Intrahepatic cholestasis of in second trimester documented in this encounter Results * [facility] (05/02/2025 1:30 PM EDT) Anatomical Region Laterality Modality Ultrasound 05/02/2025 1:08 PM EDT Narrative 05/02/2025 2:12 PM EDT PAT NAME: BENJY TOURE MED REC#: [id number] DA: 2005 PAT GEND: F PAT TYPE: O EXAM RODRIGO: [id number] REF PHYS JENIFER CHRISTIANSON Comparison Studies The [...] EFW (oz) 13 oz EFW by: Hadlock ([id number]-[place]-AE-FL) Extended Cav. septi pel. tr 4.8 mm Transformer Builder 3.6 mm CM 6.1 mm 50% Nicolaides [...] Normal Heart / Thorax 3-vessel view: Normal 9-znhfgl-xuqbotr view: normal Stomach: Appears normal Bladder: Appears [...] here in 6 weeks. Coding ====== Description: 68724-15 Follow Up Film Masker: Yessi August RDMS Physician: Denzel Edgar MD, FACOG Electronically signed by: Denzel Edgar MD, FACOG at: 14:12 Procedure Note Erik Edgar MD - 05/02/2025 PAT NAME: BENJY TOURE [facility] REC#: [id number] DA: 2005 PAT GEND: F PAT TYPE: O EXAM RODRIGO: [id number] REF PHYS JENIFER CHRISTIANSON Comparison Studies The findings of this study are compared to the prior ultrasound studydated 03/21/25 Patient Status Outpatient Indication ======== Cholestasis. Family hx renal agenesis. Maternal Assessment Rpcuph039 cm Height (ft)5 ft Height (in)6 in Fyzemv97 kg Weight (lb)140 lb BMI22.60 kg/m Method ======= Transabdominal ultrasound examination. View: Adequate view ========= Wallace . Number of fetuses: 1 Dating ====== Method of dating:based on stated TAHIR GA by prior [id number] w + 6 d TAHIR by prior assessment:08/16/2025 Ultrasound examination on:05/02/2025 GA by U/S based upon:AC, BPD, Femur, HC GA by U/S25 w + 6 d TAHIR by U/S:08/09/2025 Previous dating:based on stated TAHIR, selected on 03/21/2025 Agreed TAHIR of previous datin08/16/2025 Assigned:based on stated TAHIR, selected on 05/02/2025 Assigned GA24 w + 6 d Assigned TAHIR:08/16/2025 [id number] d Biometry Standard BPD63.2 mm 25w 4d 69% Hadlock OFD88.0 mm 28w 2d >99% Lisa HC246.1 mm 26w 5d 89% Hadlock Cerebellum tr30.4 mm 26w 2d 91% Hill AC211.2 mm 25w 5d 66% Hadlock Femur45.9 mm 25w 2d 48% Hadlock Ruhipxe08.3 mm 26w 2d 86% Lisa HC / AC1.17 HBB971 g 25w 2d 72% Hadlock EFW (lb)1 lb EFW (oz)13 oz EFW by:Hadlock (RBN-VK-HD-FL) Extended Cav. septi pel. tr4.8 mm Vp3.6 mm CM6.1 mm 50% Nicolaides Head / Face / Neck Cephalic index0.72 2% Nicolaides Extremities / Bony Struc FL / BPD0.73 FL / HC0.19 FL / AC0.22 Other Structures PKP139 bpm General Evaluation Cardiac activity present. FHR 144 bpm. movements present. Presentation cephalic. Placenta Placental site: anterior. Amniotic fluid Amount of AF: normal. MVP 6.6 cm. Anatomy Cranium:Normal Cavum septi pellucidi:Normal Cerebellum:Normal Cisterna magna:Normal Head / Neck Rt lateral ventricle:Normal Lt lateral ventricle:Normal Lips:Normal Profile:Normal Nose:Normal 4-chamber view:Appears normal RVOT view:Normal LVOT view:Normal Heart / Thorax 3-vessel view:Normal 0-vfjdlz-krzixpl view:normal Stomach:Appears normal Bladder:Appears normal Abdomen Rt kidney:visualized Rt kidney:pelvic kidney, posterior to the bladder Lt kidney:visualized Lt kidney:3.5 mm , dilatation Gender:male Wants to know gender:yes Maternal Structures Uterus / Cervix Approach:Transabdominal Cervical oexlxo71.3 mm Consultation / Office Visit Office note to follow Impression ========= Size consistent with dates. Right kidney appears midline and pelvic. Left kidney appears normal. No other anomalies were identified. No markers for trisomy. The cervical length appears normal. Recommendation We recommend evaluation in 6 weeks. Follow up appointment scheduled here in 6 weeks. Coding ====== Description:51618-87 Follow Up Film Masker: Yessi August RDMS Physician: Denzel Edgar MD, FACOG Electronically signed by: Denzel Edgar MD, FACOG at: 14:12 us Batool Frederick MD [facility] US ORDERABLES Final Result documented in this encounter Visit Diagnoses Diagnosis Intrahepatic cholestasis of in second trimester documented in this encounter Care Teams Tourist Escort Relationship Specialty Start Date End Date Provider, No Known [facility] [place] [address] PCP - General 02/01/25 documented as of this encounter
--- OUTSIDE RECORDS SUMMARY | 2025-06-13 14:09 | XMS_ITS | Encounter Summary ---
[facility] Address [address] [place] [address] Care Team Providers Care Burglar Alarm Assembler Name Role Phone Provider, No Known Primary Care Provider Unavail able Reason for Referral * Diagnostic Imaging (Routine) - Closed Specialty Diagnoses / Procedures Referred By Contac t Referred To Contact Radiology Diagnoses Intrahepatic cholestasis of in second trimester , unspecified gestational age Procedures US [facility] Erik Edgar MD [address] [facility] [address] [place] [address] Phone: tel: fax: [facility] PER DIAG CTR [address] [place] [address] Phone: tel: Referral ID Status Reason Start Date Expiration Date Visits Re quested Visits Authorized [id number] Closed 05/02/2025 08/01/2026 1 1 Reason for Visit * Diagnostic Imaging (Routine) - Closed Specialty Diagnoses / Procedures Referred By Conthafsa t Referred To Contact Radiology Diagnoses Intrahepatic cholestasis of in second trimester , unspecified gestational age Procedures [facility] Erik Edgar MD [address]er[address] [facility] [address] [place] [address] Phone: tel: fax: [facility] PER [facility] [address] [place] [address] Phone: tel: Referral ID Status Reason Start Date Expiration Date Visits Re quested Visits Authorized [id number] Closed 05/02/2025 08/01/2026 1 1 Encounter Details Date Type Department Care Team (Late st Contact Info) Description 06/13/2025 2:09 PM EDT - 06/13/2025 11:59 PM EDT Hospital Encounter [facility] [address] [place] [address] Erik Edgar MD [address] [facility] [address] [place] [address] Intrahepatic cholestasis of in second trimester; , unspecified gestational age Discharge Disposition: Home [...] this encounter Medications at Time of Discharge Slaoquhu-Nep-Tx-F A ( 1 + IRON PO) Take 1 tablet by mouth Daily. 11/27/2024 ursodiol (ACTIGALL) 300 MG capsule Take 1 capsule by mouth 2 (Two) Times a Day. 03/19/2025 documented as of this encounter Plan of Treatment Not on file documented as of this encounter Procedures Procedure Name Priority Date/Time Associated Diagnosis Comments [facility] Routine 06/13/2025 2:37 PM EDT Intrahepatic cholestasis of in second trimester , unspecified gestational age documented in this encounter Results * [facility] (06/13/2025 2:37 PM EDT) Anatomical Region Laterality Modality Ultrasound 06/13/2025 2:23 PM EDT Narrative 06/13/2025 2:39 PM EDT PAT NAME: BENJY TOURE MED REC#: [id number] DA: [id number] PAT GEND: F PAT TYPE: O EXAM RODRIGO: [id number] REF PHYS JENIFER CHRISTIANSON Comparison Studies The [...] EFW (oz) 14 oz EFW by: Hadlock (DTJ-BN-KC-FL) Extended Cav. septi pel. tr 7.3 mm [...] Normal Heart / Thorax 3-vessel view: Normal 8-qhwdqz-ggxeadn view: normal Stomach: Appears normal Bladder: Appears normal Abdomen Rt kidney: pelvic kidney Gender: male Wants to know gender: yes Biophysical Profile 2: breathing movements 2: Gross body movements 2: tone 2: Amniotic fluid volume /8 Biophysical profile score Impression Today's exam reveals a SIUP in cephalic presentation with biometry consistent with dates. Limited anatomic survey shows known right pelvic kidney but otherwise appears normal. The NADINE and BPP are normal. Recommendation Follow-up as clinically indicated. Coding ======= Description: 61018-15 Follow Up Ultrasound Description: 30003-97 BPP without NST Chain Maker: Yessi August RDMS Physician: Tab Chiu MD, FACOG Electronically signed by: Tab Chiu MD, FACOG at: 14:39 Procedure Note Tab Chiu MD - 06/13/2025 PAT NAME: BENJY TOURE MED REC#: [id number] DA: 2005 PAT GEND: F PAT TYPE: O EXAM RODRIGO: [id number] REF PHYS JENIFER CHRISTIANSON Comparison Studies The findings of this study are compared to the prior ultrasound studydated 05/02/25 Patient Status Outpatient Indication ======== Follow up pelvic kidney. Cholestasis. Maternal Assessment Yxgzzg205 cm Height (ft)5 ft Height (in)6 in Pwrlpn60 kg Weight (lb)147 lb BMI23.73 kg/m Method ======= Transabdominal ultrasound examination. View: Adequate view ========= Wallace . Number of fetuses: 1 Dating ====== Method of dating:based on stated TAHIR GA by prior bkiwkkviwm83 w + 6 d TAHIR by prior assessment:08/16/2025 Ultrasound examination on:06/13/2025 GA by U/S based upon:AC, BPD, Femur, HC GA by U/S32 w + 4 d TAHIR by U/S:08/04/2025 Previous dating:based on stated TAHIR, selected on 05/02/2025 Agreed TAHIR of previous datin08/16/2025 Assigned:based on stated TAHIR, selected on 06/13/2025 Assigned GA30 w + 6 d Assigned TAHIR:08/16/2025 iomycs877 d Biometry Standard BPD84.0 mm 33w 6d 98% Hadlock KLA016.7 mm 36w 2d >99% Lisa HC311.1 mm 34w 6d 97% Hadlock Cerebellum tr42.4 mm 33w 3d 97% Hill AC263.6 mm 30w 3d 35% Hadlock Femur59.7 mm 31w 1d 42% Hadlock Dgiwxqh01.8 mm 31w 6d 80% Lisa HC / AC1.18 EFW1,749 g 31w 0d 54% Hadlock EFW (lb)3 lb EFW (oz)14 oz EFW by:Hadlock (DJQ-IL-OL-FL) Extended Cav. septi pel. tr7.3 mm CM9.7 mm 97% Nicolaides Head / Face / Neck Cephalic index0.77 21% Nicolaides Extremities / Bony Struc FL / BPD0.71 FL / HC0.19 FL / AC0.23 Other Structures GWJ312 bpm General Evaluation Cardiac activity present. FHR [...] LVOT view:Normal Heart / Thorax 3-vessel view:Normal 3-itroya-fkxalpv view:normal Stomach:Appears normal Bladder:Appears normal Abdomen Rt kidney:pelvic kidney Gender:male Wants to know gender:yes Biophysical Profile 2: breathing movements 2: Gross body movements 2: tone 2: Amniotic fluid volume 8 Biophysical profile score Impression Today's exam reveals a SIUP in cephalic presentation with biometryconsistent with dates. Limited anatomic survey shows known rightpelvic kidney but otherwise appears normal. The NADINE and BPP are normal. Recommendation Follow-up as clinically indicated. Coding ======= Description:71484-91 Follow Up Ultrasound Description:97527-51 BPP without NST Chain Maker: Yessi August RDMS Physician: Tab Chiu MD, FACOG Electronically signed by: Tab Chiu MD, FACOG at: 14:39 us Erik Edgar MD IMG US ORDERABLES Final Re sult documented in this encounter Visit Diagnoses Diagnosis Intrahepatic cholestasis of in second trimester , unspecified gestational age documented in this encounter Care Teams Burglar Alarm Assembler Relationship Specialty Start Date End Date Provider, [place] [address] PCP - General 02/01/25 documented as of this encounter
--- OUTSIDE RECORDS SUMMARY | 2025-06-13 14:15 | XMS_ITS | Encounter Summary ---
Author Organization [facility] yste Address [address] [place] [address] Care Team Providers Care Community Services Officer Name Role Phone Provider, No Known Primary Care Provider Unavail able Reason for Visit * Reason Comments cholestasis, RT pelvic kidney Encounter Details Date Type Department Care Team (Late st Contact Info) Description 06/13/2025 2:15 PM EDT Office Visit [facility]NAL MEDICINE [address] [place] [address] Tab Chiu MD [address] [facility] [address] [place] [address] renal anomaly, single gestation (Primary Dx) Social [...] documented in this encounter Care Teams Community Services Officer Relationship Specialty Start Date End Date Provider, [place] [address] PCP - General 02/01/25 documented as of this encounter
--- OUTSIDE RECORDS SUMMARY | 2025-06-27 07:12 | XMS_ITS | Encounter Summary ---
Author Organization [place] [address] Care Team Providers Care Plsql Developer Name Role Phone Unavailable Primary Care Provider Unavailabl e Reason for Visit * Reason Comments Rule Out ROM Encounter Details Date Type Department Care Team (Latest Contact Info) Description 06/27/2025 7:12 AM EDT - 06/27/2025 8:00 AM EDT Hospital Encounter EDG LDRP One [facility] [place] [address] Asael Beard MD [address] [place] [address] [place] [address] Discharge Disposition: Home or Self Care Social History Tobacco Use Types Packs/Day Years Used Date Smoking Tobacco: Never Passive Smoke Exposure: Never Smokeless Tobacco: Never Alcohol Use Standard Drinks/Week Comments Never 0 (1 standard drink = 0.6 oz pur e alcohol) PHQ-2 Answer Date Recorded PHQ-2 Total Score 0 06/27/2025 Estimated Date of Delivery Comme nts Yes 08/16/2025 Based on Other B asis Sex and Gender Information Value Date Recorded Sex Assigned at Not on file Legal Sex Female 3:45 PM EDT Gender Identity Not on file Sexual Orientation Not on file documented as of this encounter Last Filed Vital Signs Vital Sign Reading Time Taken Comments Blood Pressure 111/70 06/27/2025 7:29 AM EDT Pulse 100 06/27/2025 7:29 AM EDT Temperature 37.1 C (98.7 F) 06/27/2025 7:29 AM EDT Respiratory Rate 18 06/27/2025 7:29 AM EDT Oxygen Saturation - - Inhaled Oxygen Concentration - - Weight 69.4 kg (153 lb) 06/27/2025 7:29 AM EDT Height 165.1 cm (5' 5 ) 06/27/2025 7:29 AM EDT Body Mass Index 25.46 06/27/2025 7:29 AM EDT documented in this encounter Functional Status * Cognitive and Functional Status Question Answer Date of Assessment Author Is the person deaf or does h e/she have serious difficulty hearing? No 06/27/2025 7:50 AM Luis Tello RN Is the person blind or does he/she have serious difficulty seeing even when wearing glasses? No 06/27/2025 7:50 AM Leticia Tello R N Does this person have seriou s difficulty walking or climbing stairs? No 06/27/2025 7:50 AM Leticia Nevarez RN Does this person have diffic ulty dressing or bathing? No 06/27/2025 7:50 AM Leticia Tello RN * Alcohol Screening Score Answer Date of Assessment Author 0 06/27/2025 7:27 AM Luis Tello RN * Drug Screening Score Answer Date of Assessment Author 0 06/27/2025 7:27 AM Luis Tello RN * Question Answer Date of Assessment Author How often do you have a drin k containing alcohol? 0 06/27/2025 7:27 AM Leticia Tello RN How many drinks containing a lcohol do you have on a typical day when you are drinking? 0 06/27/2025 7:27 AM Leticia Tello RN * Is the person deaf or does he/she have serious difficulty hearing? Answer Date of Assessment Author No 06/27/2025 7:50 AM Luis Tello RN * Is the person blind or does he/she have serious difficulty seeing even when wearing glasses? Answer Date of Assessment Author No 06/27/2025 7:50 AM Luis Tello RN * Does this person have serious difficulty walking or climbing stairs? Answer Date of Assessment Author No 06/27/2025 7:50 AM Luis Tello RN * Does this person have difficulty dressing or bathing? Answer Date of Assessment Author No 06/27/2025 7:50 AM Luis Tello RN * Because of a physical, mental or emotional condition, does this person have difficulty doing errands alone such as visiting a doctor's office or shopping? Answer Date of Assessment Author No 06/27/2025 7:50 AM Luis Tello RN * PHQ-9 Total Score Answer Date of Assessment Author 0 06/27/2025 7:28 AM Luis Tello RN * Question Answer Date of Assessment Author Little interest or pleasure in doing things 0 06/27/2025 7:28 AM Leticia Tello RN Feeling down, depressed, or hopeless 0 06/17 7:28 AM Leticia Tello RN PHQ-2 Total Score 0 06/27/2025 7:28 AM Leticia Tello RN * PHQ-2 Total Score Answer Date of Assessment Author 0 06/27/2025 7:28 AM Luis Tello RN * Question Answer Date of Assessment Author Feeling Nervous, Anxious, or on Edge 0 06/17 7:28 AM Leticia Tello RN Not Being Able to Stop or Co ntrol Worrying 0 06/27/2025 7:28 AM Leticia Tello RN Worrying too Much About Diff erent Things 0 06/27/2025 7:28 AM Leticia Tello RN Trouble Relaxing 0 06/27/2025 7:28 AM Leticia Alston RN Being so Restless That it is Hard to Sit Still 0 06/27/2025 7:28 AM Leticia Tello RN Becoming Easily Annoyed or Irritable 0 06/17 7:28 AM Leticia Tello RN Feeling Afraid as if Somethi ng Awful Might Happen 0 06/27/2025 7:28 AM Leticia Tello RN EDMOND-7 Total Score 0 06/27/2025 7:28 AM Leticia Tello RN * Suicide Severity Rating Answer Date of Assessment Author No Risk 06/27/2025 7:28 AM Luis Tello RN * [place] Suicide Severity Rating Scale (Q shift for moderate and high) Question Answer Date of Assessment Author 1. In the past month, have y ou wished you were or wished you could go to sleep and not wake up? 0 06/27/2025 7:28 AM EDT Dawna Perez RN 2. In the past month, have y ou actually had any thoughts of killing yourself? (If no, skip to question 6) 0 06/27/2025 7:28 AM EDT Leticia Perez RN 6. Have you ever done anythi ng, started to do anything, or prepared to do anything to end your life? 0 06/27/2025 7:28 AM EDT Leticia Perez RN documented as of this encounter Mental Status * Cognitive and Functional Status Question Answer Entry Date Author Because of a physical, menta l or emotional condition, does this person have difficulty doing errands alone such as visiting a doctor's office or shopping? No 06/27/2025 7:50 AM EDT Leticia Perez RN Because of a physical, menta l or emotional condition, does this person have serious difficulty concentrating, remembering or making decisions? No 06/27/2025 7:50 AM EDT Leticia Foley RN * Because of a physical, mental or emotional condition, does this person have serious difficulty concentrating, remembering or making decisions? Answer Entry Date Author No 06/27/2025 7:50 AM EDT Luis Perez RN documented in this encounter Discharge Instructions * Discharge Instructions* Leticia Perez RN - 06/27/2025 7:51 AM EDT [facility] Discharge Instructions Julianna Toure [id number] [facility] [place][note 2][address] [place] [address] Activity Restrictions: No Restrictions Diet: regular Call MD for any of the following or any other concerns Signs of Labor: More than 6 contractions/hour Decreased baby movement. Kick counts Water breaks or leaking of fluid Persistent headache Spotting or bleeding Double or blurred vision Elevated temperature >100.5 or chills Severe heartburn or indigestion Persistent nausea or vomiting Swelling of face or hands Pain, burning or difficulty urinating Constant abdominal pain Comments/Instructions: MEDICATIONS: None Drug Dose Times to Take Reason for Taking *Contact your doctor before resuming any medications from home not listed above, questions about food/drug interactions, and diet or activity instructions. Please continue your current pain management regimen. IF PAIN INTENSIFIES OR PAIN IS UNRELIEVED WITH MEDICATIONS ORDERED, CALL YOUR PHYSICIAN. Remember to contact your physician for a follow-up appointment as instructed. Discharge instructions were given to patient with patient's/family full understanding. documented in this encounter Medications at Time of Discharge vit no.124/iron/folic ( VITAMIN ORAL) Take by mouth. ursodioL (ACTIGALL) 300 mg Oral Capsule Take 300 mg by mouth 2 times daily. b gvzxplw-G-bhvbc acid (NEPHROCAP) 1 mg Oral Capsule Take [...] Means Destination Comment s Home or Self [facility]pc documented in this encounter Progress Notes * Leticia Perez RN - 06/27/2025 8:00 AM EDT 06/27/25 0748 Heart Rate Mode External US;Removed Baseline Rate 135 bpm Baseline Classification Normal Variability Moderate Pattern A Movement Present RN assessed heart tracing? Yes Uterine Activity Mode Palpation;[place];Removed Contraction Frequency none Contraction Intensity N/A Resting Tone Palpated Soft NST NST Performed? Yes $ NST charge Yes Nonstress Test Uterine Findings Uterine Irritability No Contractions Not present Nonstress Test Fetus A Variability Moderate Decelerations None Accelerations Yes Acoustic Stimulator No Baseline 135 BPM Interpretation Fetus A Nonstress Test Interpretation Reactive Cosigned by Asael Beard MD at 06/28/2025 6:27 AM EDT * Leticia Perez RN - 06/27/2025 7:56 AM EDT After completion of the Medical Screening Evaluation, it has been determined that a medical emergency does not exist and the patient is not in active labor, and therefore the patient may be discharged home. Discharge instructions given, verbalized understanding. To keep next scheduled appointment. Reinforced kick counts. To call provider with any further questions or concerns. Discharged home, ambulatory. * Leticia Perez RN - 06/27/2025 7:25 AM EDT Arrived to triage c/o leaking. First noticed when awoke this morning at 0530, underwear were wet. Fluid down her leg when she stood up. Happened again when she went to the bathroom after arriving to work. EFM and TOCO to [employer]. Provider aware. documented in this encounter Nursing Notes * Destiny Agosto MD - 06/27/2025 8:00 AM EDT [facility] OB Triage Progress Note S: Pt is a 20 y.o. at 32w6d with Estimated Date of Delivery: 08/16/25 and cholestasis of presents to triage c/o Rupture of membranes: Date/time: 5:30 am, Amount: leakage and trickle, and Color: clear and white Julianna tells me that when she woke up this morning she noticed leakage in her underwear that ran down her leg when she stood up. She tells me that it was clear and white. She reports some continued trickling and then another larger gush. She tells me this has never happened before and alarmed her so she wanted to get examined. She reports that she had intercourse last night. She denies trauma. She denies any abdominal cramps today. ROS: No vaginal bleeding. Patient reports good movement. No headache, blurry vision, or LUQ pain. All other ROS reviewed and reported as negative. OB History 1 Para Term AB Living SAB IAB Ectopic Multiple Live Births Prior to Admission medications Medication Sig Start Date End Date Last Dose Authorizing Provider vit no.124/iron/folic ( VITAMIN ORAL) Take by mouth. 06/27/2025 Morning Provider, Historical ursodioL (ACTIGALL) 300 mg Oral Capsule Take 300 mg by mouth 2 times daily. 06/26/2025 Bedtime Provider, Historical b fzegeyp-F-thwqa acid (NEPHROCAP) 1 mg Oral Capsule Take 1 Capsule by mouth daily. Patient not taking: Reported on 04/12/2025 Provider, Historical Cranberry 500 mg Oral Capsule Take by mouth. Patient not taking: Reported on 06/27/2025 Not Taking Provider, Historical FLUoxetine (PROZAC) 10 mg Oral Capsule Take 1 Capsule by mouth daily. Patient not taking: Reported on 05/14/2024 03/16/24 Maryam Ritter APRN multivitamin with folic acid (THERAGRAN) 400 mcg Oral Tablet Take 1 Tablet by mouth daily. Patient not taking: Reported on 04/12/2025 Provider, Historical phenazopyridine (PYRIDIUM) 95 mg Oral [...] Allergies Allergen Reactions Augmentin [Amoxicillin-Pot Clavulanate] Rash O: BP 111/70 Pulse 100 Temp 98.7 ??F (37.1 ??C) (Oral) Resp 18 Ht 5' 5 (1.651 m) Wt 153 lb (69.4 kg) LMP 05/17/2024 (Approximate) BMI 25.46 kg/m?? 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 Moodand affect are appropriate. Heart Tones: Baseline: 136 bpm, Variability: mod, Accelerations: Reactive, and Decelerations:Absent Uterine Activity: Frequency: Absent Cervical exam not done UA POC: Lab Results Component Value Date UACOLORPOC Yellow 06/27/2025 UAAPPEARPOC Clear 06/27/2025 UAGLUCPOC Negative 06/27/2025 UAKETONESPOC Negative 06/27/2025 UABLOODPOC Negative 06/27/2025 UAPHPOC 6.5 06/27/2025 UAPROTEINPOC Negative 06/27/2025 UALEUKESTPOC Negative 06/27/2025 UASGPOC 1.025 06/27/2025 Pooling: Negative, Nitrazine: Negative, and Ferning: Negative A/P: 20 y.o. 32w6d here to rule our rupture of membranes -FHT category 1, reassuring -No uterine contractions on the monitor -Speculum exam negative for pooling, ferning, Nitrazine negative -Cervical exam deferred -UA wnl -Non-concerning for rupture of membranes or labor -Educated patient about increased cervical discharge, loss of urine, and semen as possible causes of her leakage -Counseled patient on return precautions such as large gush of fluid followed by constant trickle, frequent severe abdominal cramps -Patient expressed understanding and was agreeable to plan. All questions answered. -Discussed with patient that she should call her OB to let them know her NST was reactive and reassuring today and that she may not need to go to her NST appointment tomorrow -Medically safe to discharge home Destiny Agosto MD 06/27/2025 8:36 AM Cosigned by Asael Beard MD at 06/28/2025 6:36 AM EDT Associated attestation - Beard, Asael Hairston MD - 06/28/2025 6:36 AM EDT Patient discussed with resident team. I have seen and examined the patient myself and agree with the CC, HPI, past histories, and physical exam presented in their documentation. I also agree with assessment and plan as written. No evidence of PPROM. Return if persistent concerns for LOF. Labor signs and kick counts discussed with patient. NST reactive. documented in this encounter Plan of Treatment Not on file documented as of this encounter Goals Goal Patient Goal Type Associated Problems Recent Progress Patient-Stated? Author Maintain a healthy diet, exercise regularly and maintain an ideal body weight General Orquidea Bueno APRN documented as of this encounter Procedures Procedure Name Priority Date/Time Associated Diagnosis Comments URINALYSIS POC Routine 06/27/2025 7:33 AM EDT documented in this encounter Results * URINALYSIS POC (06/27/2025 7:33 AM EDT) UA Color POC Yellow Color 06/27/2025 7:35 AM EDT [facility] UA Appear POC Clear Clear 06/27/2025 7:35 AM EDT [facility] UA Blood POC Negative Negative 06/27/2025 7:35 AM EDT [facility] UA pH POC 6.5 5.0 - 8.0 pH 06/27/2025 7:35 AM EDT [facility] UA Urobilinogen POC 0.2 0.2, 1.0 06/27/2025 7:35 AM EDT [facility] UA Nitrite POC Negative Negative 06/27/2025 7:35 AM EDT [facility] UA Leuk Est POC Negative Negative 7:35 AM EDT [facility] UA SG POC 1.025 1.001 - 1.035 no units 06/27/2025 7:35 AM EDT [facility] UA Gluc POC Negative Negative mg/dL 06/27/2025 7:35 AM EDT [facility] UA Protein POC Negative Negative mg/dL 06/27/2025 7:35 AM EDT [facility] UA Ketones POC Negative Negative mg/dL 06/27/2025 7:35 AM EDT [facility] Urine STRUCTURE OF URINARY TRACT PROPER / Unknown 06/27/2025 7:33 AM EDT 06/27/2025 7:35 AM EDT us Asael Beard MD POINT OF CARE TEST ORD ERABLES Final Result [facility] [address] [place] [id number] documented in this encounter Visit Diagnoses Not on filedocumented in this encounter Orders Discharge Count Last Ordered Date First Orde red Date DISCHARGE PATIENT 1 06/27/2025 documented in this encounter
[2025-07-02 10:00] VITALS: BP 127/76; PULSE 97; RESP 18; TEMP 36.6; BMI 25.1
--- OUTSIDE RECORDS SUMMARY | 2025-07-02 10:24 | XMS_ITS | Encounter Summary ---
[facility] Address [address] [place] [address] Care Team Providers Care Credentials Specialist Name Role Phone Provider, No Known [...] on filedocumented in this encounter Care Teams Credentials Specialist Relationship Specialty Start Date End Date Provider, [place] [address] PCP - General 02/01/25 documented as of this encounter
--- OUTSIDE RECORDS SUMMARY | 2025-07-02 10:24 | XMS_ITS | Clinical Summary ---
[facility] Organization [facility] Address [address] [place] [address] Care Team Providers Care Online Marketing Strategist Name Role Phone Provider, No Known Primary Care Provider Unavail able Allergies Active Allergy Reactions Criticality Noted Date Comments Amoxicillin-Pot Clavulanate Rash Low 08/17/20 10 Medications ursodiol (ACTIGALL) 300 MG capsule Take 1 capsule by mouth 2 (Two) Times a Day. 03/19/2025 Active Xattotdt-Xie-Hz -FA ( 1 + IRON PO) Take [...] Description 06/13/2025 2:15 PM EDT Office Visit [facility] [address] [facility] [address] [place] [phone] Tab Chiu MD renal anomaly, single gestation (Primary Dx) 06/13/2025 2:09 PM EDT - 06/13/2025 11:59 PM EDT Hospital Encounter [facility] [address] [place] [phone] Erik Edgar MD Intrahepatic cholestasis of in second trimester; , unspecified gestational age Discharge Disposition: Home or Self Care 06/13/2025 Travel 05/02/2025 12:45 PM EDT - 05/02/2025 11:59 PM EDT Hospital Encounter [facility] [address] [place] [address] Batool Frederick MD Intrahepatic cholestasis of in second trimester Discharge Disposition: Home or Self Care 05/02/2025 12:45 PM EDT Office Visit [facility] [address] [place] [address] [place] [address] Erik Edgar MD Intrahepatic cholestasis [...] 2021 ANNUAL PHYSICAL 02/01/2025 CHLAMYDIA SCREENING 02/01/2025 INFLUENZA VACCINE 05/17/2025 07/20/2024, , 08/22/2019, Additional history exists COVID-19 Vaccine ( - season) 2025 06/05/2022, 05/11/2022 RSV Vaccine - Adults (1 - Risk 1-dose series) 06/21/2025 TDAP/TD VACCINES (3 - Td or Tdap) 05/11/2032 05/11/2022, 05/17/2016 Pneumococcal Vaccine 0-49 Aged Out 2005, 2005, 2005 No longer eligible based on patient's age to complete this topic MENINGOCOCCAL VACCINE Completed 06/08/2022, 016 HEPATITIS C SCREENING Completed 12/31/2024 , 12/31/2024, 12/21/2024 Procedures Procedure Name Priority Date/Time Associated Diagnosis Comments [facility] Routine 06/13/2025 2:37 PM EDT Intrahepatic cholestasis of in second trimester , unspecified gestational age [facility] Routine 05/02/2025 1:30 PM EDT Intrahepatic cholestasis of in second trimester from Last 3 Months Results * [facility] (06/13/2025 2:37 PM EDT) Only the most recent of2 resultswithin the time period is included. Anatomical Region Laterality Modality Ultrasound 06/13/2025 2:23 PM EDT Narrative 06/13/2025 2:39 PM EDT PAT NAME: BENJY TOURE [facility] REC#: [id number] DA: [id number] PAT GEND: F PAT TYPE: O EXAM RODRIGO: [id number] REF PHYS JENIFER CHRISTIANSON Comparison Studies The [...] on stated TAHIR, selected on 05/02/2025 Agreed ATHIR of previous datin08/16/2025 Assigned: based [...] EFW (oz) 14 oz EFW by: Hadlock (QZN-QX-ZG-FL) Extended Cav. septi pel. tr 7.3 mm [...] Normal Heart / Thorax 3-vessel view: Normal 5-ixdwde-zrbgaop view: normal Stomach: Appears normal Bladder: Appears [...] Follow-up as clinically indicated. Coding ======= Description: 34344-49 Follow Up Ultrasound Description: 20992-13 BPP without NST Technical Business Systems Analyst: Yessi August RDMS Physician: Tab Chiu MD, FACOG Electronically signed by: Tab Chiu MD, FACOG at: 14:39 Procedure Note Tab Chiu MD - 06/13/2025 PAT NAME: BENJY TOURE MED REC#: [id number] DA: [id number] PAT GEND: F PAT TYPE: O EXAM RODRIGO: [id number] REF PHYS JENIFER CHRISTIANSON Comparison Studies The findings of this study are compared to the prior ultrasound studydated 05/02/25 Patient Status Outpatient Indication ======== Follow up pelvic kidney. Cholestasis. Maternal Assessment Xpcpqw710 cm Height (ft)5 ft Height (in)6 in Ntqggd59 kg Weight (lb)147 lb BMI23.73 kg/m Method ======= Transabdominal ultrasound examination. View: Adequate view ========= Wallace . Number of fetuses: 1 Dating ====== Method of dating:based on stated TAHIR GA by prior [id number] w + 6 d TAHIR by prior assessment:08/16/2025 Ultrasound examination on:06/13/2025 GA by U/S based upon:AC, BPD, Femur, HC GA by U/S32 w + 4 d TAHIR by U/S:08/04/2025 Previous dating:based on stated TAHIR, selected on 05/02/2025 Agreed TAHIR of previous datin08/16/2025 Assigned:based on stated TAHIR, selected on 06/13/2025 Assigned GA30 w + 6 d Assigned TAHIR:08/16/2025 [id number] d Biometry Standard BPD84.0 mm 33w 6d 98% Hadlock UWW925.7 mm 36w 2d >99% Lisa HC311.1 mm 34w 6d 97% Hadlock Cerebellum tr42.4 mm 33w 3d 97% Hill AC263.6 mm 30w 3d 35% Hadlock Femur59.7 mm 31w 1d 42% Hadlock Somlhkp90.8 mm 31w 6d 80% Lisa HC / AC1.18 EFW1,749 g 31w 0d 54% Hadlock EFW (lb)3 lb EFW (oz)14 oz EFW by:Hadlock (WPC-BS-HK-FL) Extended Cav. septi pel. tr7.3 mm CM9.7 mm 97% Nicolaides Head / Face / Neck Cephalic index0.77 21% Nicolaides Extremities / Bony Struc FL / BPD0.71 FL / HC0.19 FL / AC0.23 Other Structures KDF750 bpm General Evaluation Cardiac activity present. FHR [...] LVOT view:Normal Heart / Thorax 3-vessel view:Normal 2-aoemgn-pponisi view:normal Stomach:Appears normal Bladder:Appears normal Abdomen Rt [...] Recommendation Follow-up as clinically indicated. Coding ======= Description:94451-06 Follow Up Ultrasound Description:65440-60 BPP without NST Technical Business Systems Analyst: Yessi August RDSC Physician: Tab Chiu MD, FACOG Electronically signed by: Tab Chiu MD, FACOG at: 14:39 Erik Edgar MD [facility] ORDERABLES Final Re sult from Last [address] [facility] PPO Member Subscriber Plan / Payer (Ef fective 2018-Present) Name:Benjy Toure Relation to Subscriber:Child Name:Prema Toure Date of :1975 (Home) Address: [address] [place] [address] Payer ID:[id number] (NAIC) Type:Not on file Address: [facility] [address] [place] [id number] Care Teams Online Marketing Strategist Relationship Specialty Start Date End Date Provider, [place] [address] PCP - General 02/01/25
--- OUTSIDE RECORDS SUMMARY | 2025-07-02 10:25 | XMS_ITS | Clinical Summary ---
Author Organization [facility] Address [address] [facility] [address] [place] [address] Phone Care Team Providers Care Jr. Java Developer Name Role Phone Unavailable Primary Care Provider Unavailabl e Allergies Active Allergy Reactions Criticality Noted Date Comments Amoxicillin-Pot Clavulanate Rash Low 03/16/20 24 Medications FLUoxetine (PROZAC) 10 mg Oral CapsuleIndicati ons:Anxiety and depression Take 1 Capsule by mouth daily. 90 Capsule 3 Active Additional Information Patient not taking.Reason: Therapy Completed, Reported on 05/14/2024 b jbepjxc-C-fiesi acid (NEPHROCAP) 1 mg Oral Capsule Take [...] 8:00 AM EDT Hospital Encounter [facility] [address], [place] [address] Asael Beard MD Discharge Disposition: Home or Self Care 06/27/2025 Travel 05/07/2025 9:30 AM EDT - 05/07/2025 11:59 PM EDT Hospital Encounter [facility] [address] [place] [address] Intrahepatic cholestasis of , first trimester (Primary Dx) Discharge Disposition: Home or Self Care 04/12/2025 11:32 AM EDT - 04/12/2025 12:44 PM EDT Hospital Encounter [facility] [place] [address] Asael Beard MD Discharge Disposition: Home or [...] Estimated Date of Delivery 04/12/2025 - Present (07/02/2025) 08/16/2025 (set by Dasha Maravilla, RN on 04/12/2025 based on Other Basis) Dating Summary Based On TAHIR GA Diff Other Basis 08/16/2025 Working Last Menstrual Period on 05/17/2024 (Approximate ) 02/21/2025 +25w1d Vitals Pregravid Weight Height TWG (As of 07/02/2025) Pregrav id BMI 5' 5 (1.651 m) [...] arriving to work. EFM and TOCO to [employer]. Provider aware. Progress Notes - Hospital En [...] POC Yellow Color 06/27/2025 7:35 AM EDT [facility] UA Appear POC Clear Clear 06/27/2025 7:35 AM EDT [facility] UA Blood POC Negative Negative 06/27/2025 7:35 AM EDT [facility] UA pH POC 6.5 5.0 - 8.0 pH 06/27/2025 7:35 AM EDT [facility] UA Urobilinogen POC 0.2 0.2, 1.0 06/27/2025 7:35 AM EDT [facility] UA Nitrite POC Negative Negative 06/27/2025 7:35 AM EDT [facility] UA Leuk Est POC Negative Negative 7:35 AM EDT [facility] UA SG POC 1.025 1.001 - 1.035 no units 06/27/2025 7:35 AM EDT [facility] UA Gluc POC Negative Negative mg/dL 06/27/2025 7:35 AM EDT [facility] UA Protein POC Negative Negative mg/dL 06/27/2025 7:35 AM EDT [facility] UA Ketones POC Negative Negative mg/dL 06/27/2025 7:35 AM EDT [facility] Urine STRUCTURE OF URINARY TRACT PROPER / Unknown 06/27/2025 7:33 AM EDT 06/27/2025 7:35 AM EDT us Asael Beard MD POINT OF CARE TEST ORD ERABLES Final Result [facility] [address] [id number] * BILE ACIDS TOTAL -REF LAB (05/07/2025 10:05 AM EDT) Bile Acids 8 0 - 10 umol/L 05/08/2025 5:41 PM EDT [employer] Comment: INTERPRETIVE INFORMATION: Bile Acids, Total Reference Interval applies to fasting specimens. Performed By: [employer] [address] [place] [address] Maintenance Supervisor: Kiet Sanon MD, PhD CLIA Number: [id number] Blood VENOUS BLOOD / Unknown Venipuncture / Unknown 05/07/2025 10:05 AM EDT 05/07/2025 10:59 AM EDT us Not In Epic Provider CHEMISTRY ORDERABLES Final Result [facility] [place] [address] [place] [address] * (ABNORMAL) COMPREHENSIVE METABOLIC PANEL (05/07/2025 10:05 [...] U/L 05/07/2025 11:35 AM EDT [facility]REF[facility] Alk Phos 88 36 - 123 U/L 05/07/2025 11:35 AM EDT [facility] eGFR (CKD-EPIcr 2020) 146 >=60 mL/min/1.7 3 m2 05/07/2025 11:35 AM EDT [facility] Comment:Estimated GFR was ca lculated using the CKD-EPIcr (2020) equation refit without race. The equation is recommended by the National Kidney Foundation - [place] [employer] of Nephrology Task Force. Blood VENOUS BLOOD / Unknown Venipuncture / Unknown 05/07/2025 10:05 AM EDT 05/07/2025 11:02 AM EDT us Not In Epic Provider CHEMISTRY ORDERABLES Final Result [facility] [address] [facility] , [place] [address] from Last 3 Months Insurance ANTHEM PPO ANTHEM PPO
--- OUTSIDE RECORDS SUMMARY | 2025-07-02 10:25 | XMS_ITS | Encounter Summary ---
Author Organization [facility] [place] [address] Care Team Providers Care Police Patrol Officer Name Role Phone Unavailable Primary Care Provider [...] 06/27/2025 7:28 AM Luis Tello RN * [place] Suicide Severity Rating Scale (Q shift for [...]
== END 2025-07-02 10:44 | disposition home or self-care (01) ==
LOC: OBOUT 09:59 → OB 09:59
PROVIDERS: Visit Provider Obstetrics & Gynecology
DX: Z34.03 Encounter for supervision of normal first pregnancy, third trimester (principal); Z3A.33 33 weeks gestation of pregnancy
CPT/HCPCS: 59025

== ENCOUNTER 2025-07-05 16:45 | Outpatient (CLI) | payer BC, SELFPAY ==
--- OUTSIDE RECORDS SUMMARY | 2025-05-07 09:30 | XMS_ITS | Encounter Summary ---
Author Organization [place] Address [address] [facility] [place] [address] Care Team Providers Care Engineer Assistant Name Role Phone Unavailable Primary Care Provider Sergio e Encounter Details Date Type Department Care Team (Latest Contact Info) Description 05/07/2025 9:30 AM EDT - 05/07/2025 11:59 PM EDT Hospital Encounter [facility] [place] [address] Intrahepatic cholestasis of , first trimester [...] mg by mouth 2 times daily. b fqvdbwp-J-ntqit acid (NEPHROCAP) 1 mg Oral Capsule Take [...] - 10 umol/L 05/08/2025 5:41 PM EDT [employer] Comment: INTERPRETIVE INFORMATION: Bile Acids, Total Reference Interval applies to fasting specimens. Performed By: [facility] [address] [place] [address] Mainframe Software Developer: Kiet Sanon MD, PhD CLIA Number: [id number] Blood VENOUS BLOOD / Unknown Venipuncture / Unknown 05/07/2025 10:05 AM EDT 05/07/2025 10:59 AM EDT us Not In Epic Provider CHEMISTRY ORDERABLES Final Result [employer] [facility] [address] [place] [address] * (ABNORMAL) COMPREHENSIVE METABOLIC PANEL (05/07/2025 10:05 AM EDT) Pathologist [facility] Sodium 137 136 - 145 mmol/L 05/07/2025 [...] 05/07/2025 11:35 AM EDT [facility] Albumin 4.0 3.5 - 5.2 gm/dL 05/07/2025 11:35 AM EDT [facility] Total Protein 6.4 6.4 - 8.3 [...] 05/07/2025 11:35 AM EDT [facility] eGFR (CKD-EPIcr 2020) 146 >=60 mL/min/1.7 3 m2 05/07/2025 11:35 AM EDT [facility] Comment:Estimated GFR was ca lculated using the CKD-EPIcr (2020) equation refit without race. The equation is recommended by the National Kidney Foundation - [place] Society of Nephrology Task Force. Blood VENOUS BLOOD / Unknown Venipuncture / Unknown 05/07/2025 10:05 AM EDT 05/07/2025 11:02 AM EDT us Not In Epic Provider CHEMISTRY ORDERABLES Final Result [facility] [address] [facility] , [address] [place] [id number] documented in this encounter Visit Diagnoses Diagnosis Intrahepatic cholestasis of , first trimester- Primary documented in this encounter
--- OUTSIDE RECORDS SUMMARY | 2025-06-13 14:09 | XMS_ITS | Encounter Summary ---
[facility] Organization [facility] Address [address] [place] [address] Care Team Providers Care Research Agricultural Engineer Name Role Phone Provider, No Known Primary Care Provider Unavail able Reason for Referral * Diagnostic Imaging (Routine) - Closed Specialty Diagnoses / Procedures Referred By Contac t Referred To Contact Radiology Diagnoses Intrahepatic cholestasis of in second trimester , unspecified gestational age Procedures [facility] Erik Edgar MD [address] [facility] [address] [place] [address] Phone: tel: fax: [facility] [address] [place] [address] Phone: tel: Referral ID Status Reason Start Date Expiration Date Visits Re quested Visits Authorized [id number] Closed 05/02/2025 08/01/2026 1 1 Reason for Visit * Diagnostic Imaging (Routine) - Closed Specialty Diagnoses / Procedures Referred By Conthafsa t Referred To Contact Radiology Diagnoses Intrahepatic cholestasis of in second trimester , unspecified gestational age Procedures [facility] Erik Edgar MD 170[address]erino [facility] [address] [place] [address] Phone: tel: fax: [facility] [address] [place] [address] Phone: tel: Referral ID Status Reason Start Date Expiration Date Visits Re quested Visits Authorized [id number] Closed 05/02/2025 08/01/2026 1 1 Encounter Details Date Type Department Care Team (Late st Contact Info) Description 06/13/2025 2:09 PM EDT - 06/13/2025 11:59 PM EDT [facility] [address] [place] [address] Erik Edgar MD [address] [facility] [address] [place] [address] Intrahepatic cholestasis of in second [...] this encounter Medications at Time of Discharge Qxfrbwaj-Hre-Bn-F A ( 1 + IRON PO) Take 1 tablet by mouth Daily. 11/27/2024 ursodiol (ACTIGALL) 300 MG capsule Take 1 capsule by mouth 2 (Two) Times a Day. 03/19/2025 documented as of this encounter Plan of Treatment Not on file documented as of this encounter Procedures Procedure Name Priority Date/Time Associated Diagnosis Comments [facility] Routine 06/13/2025 2:37 PM EDT Intrahepatic cholestasis of in second trimester , unspecified gestational age documented in this encounter Results * [facility] (06/13/2025 2:37 PM EDT) Anatomical Region Laterality Modality Ultrasound 06/13/2025 2:23 PM EDT Narrative 06/13/2025 2:39 PM EDT PAT NAME: BENJY TOURE MED REC#: [id number] DA: [id number] PAT GEND: F PAT TYPE: O EXAM RODRIGO: [id number] REF PHYS JENIFER CHRISTIANSON Comparison Studies The [...] EFW (oz) 14 oz EFW by: Hadlock (NNA-IY-AX-FL) Extended Cav. septi pel. tr 7.3 mm [...] Normal Heart / Thorax 3-vessel view: Normal 9-ohsmja-rzeadrl view: normal Stomach: Appears normal Bladder: Appears [...] Follow-up as clinically indicated. Coding ======= Description: 70338-03 Follow Up Ultrasound Description: 03305-04 BPP without NST Reservations Agent: Yessi August RDMS Physician: Tab Chiu MD, FACOG Electronically signed by: Tab Chiu MD, FACOG at: 14:39 Procedure Note Tab Chiu MD - 06/13/2025 PAT NAME: BENJY TOURE MED REC#: [id number] DA: 2005 PAT GEND: F PAT TYPE: O EXAM RODRIGO: [id number] REF PHYS JENIFER CHRISTIANSON Comparison Studies The findings of this study are compared to the prior ultrasound studydated 05/02/25 Patient Status Outpatient Indication ======== Follow up pelvic kidney. Cholestasis. Maternal Assessment Fzunwz976 cm Height (ft)5 ft Height (in)6 in Xtxmfr47 kg Weight (lb)147 lb BMI23.73 kg/m Method ======= Transabdominal ultrasound examination. View: Adequate view ========= Wallace . Number of fetuses: 1 Dating ====== Method of dating:based on stated TAHIR GA by prior znnpltuccp07 w + 6 d TAHIR by prior assessment:08/16/2025 Ultrasound examination on:06/13/2025 GA by U/S based upon:AC, BPD, Femur, HC GA by U/S32 w + 4 d TAHIR by U/S:08/04/2025 Previous dating:based on stated TAHIR, selected on 05/02/2025 Agreed TAHIR of previous datin08/16/2025 Assigned:based on stated TAHIR, selected on 06/13/2025 Assigned GA30 w + 6 d Assigned TAHIR:08/16/2025 ewqalm472 d Biometry Standard BPD84.0 mm 33w 6d 98% Hadlock LOE201.7 mm 36w 2d >99% Lisa HC311.1 mm 34w 6d 97% Hadlock Cerebellum tr42.4 mm 33w 3d 97% Hill AC263.6 mm 30w 3d 35% Hadlock Femur59.7 mm 31w 1d 42% Hadlock Vazvcxy17.8 mm 31w 6d 80% Lisa HC / AC1.18 EFW1,749 g 31w 0d 54% Hadlock EFW (lb)3 lb EFW (oz)14 oz EFW by:Hadlock (TRX-IA-FP-FL) Extended Cav. septi pel. tr7.3 mm CM9.7 mm 97% Nicolaides Head / Face / Neck Cephalic index0.77 21% Nicolaides Extremities / Bony Struc FL / BPD0.71 FL / HC0.19 FL / AC0.23 Other Structures MBC506 bpm General Evaluation Cardiac activity present. FHR [...] LVOT view:Normal Heart / Thorax 3-vessel view:Normal 9-yqyzyw-qpvnnck view:normal Stomach:Appears normal Bladder:Appears normal Abdomen Rt [...] Recommendation Follow-up as clinically indicated. Coding ======= Description:08263-68 Follow Up Ultrasound Description:63413-79 BPP without NST Reservations Agent: Yessi August RDMS Physician: Tab Chiu MD, FACOG Electronically signed by: Tab Chiu MD, FACOG at: 14:39 us Erik Edgar MD IMG US ORDERABLES Final Re sult documented in this encounter Visit Diagnoses Diagnosis Intrahepatic cholestasis of in second trimester , unspecified gestational age documented in this encounter Care Teams Research Agricultural Engineer Relationship Specialty Start Date End Date Provider, [place] [address] PCP - General 02/01/25 documented as of this encounter
--- OUTSIDE RECORDS SUMMARY | 2025-06-13 14:15 | XMS_ITS | Encounter Summary ---
Author Organization [facility] yste Address [address] [place] [address] Care Team Providers Care Tram Driver Name Role Phone Provider, No Known Primary Care Provider Unavail able Reason for Visit * Reason Comments cholestasis, RT pelvic kidney Encounter Details Date Type Department Care Team (Late st Contact Info) Description 06/13/2025 2:15 PM EDT Office Visit [facility] MEDIC[facility] [address] [place] [address] Tab Chiu MD [address] [facility] [address] [place] [address] renal anomaly, single gestation (Primary Dx) Social [...] Primary documented in this encounter Care Teams Tram Driver Relationship Specialty Start Date End Date Provider, [place] [address] PCP - General 02/01/25 documented as of this encounter
--- OUTSIDE RECORDS SUMMARY | 2025-06-27 07:12 | XMS_ITS | Encounter Summary ---
Author Organization [place] [address] Care Team Providers Care Telegraph Repeater Mechanic Name Role Phone Unavailable Primary Care Provider Unavailabl e Reason for Visit * Reason Comments Rule Out ROM Encounter Details Date Type Department Care Team (Latest Contact Info) Description 06/27/2025 7:12 AM EDT - 06/27/2025 8:00 AM EDT Hospital Encounter EDG LDRP [facility] [place] [address] Asael Beard MD [address] [place] [address] [place] [address] Discharge Disposition: Home or Self [...] 06/27/2025 7:28 AM Luis Tello RN * [place] Suicide Severity Rating Scale (Q shift for [...] Perez RN - 06/27/2025 7:51 AM EDT [facility] Discharge Instructions Julianna Toure [id number] [facility] [place] [address] Activity Restrictions: No Restrictions Diet: regular Call [...] mg by mouth 2 times daily. b pucdqvw-H-nqfqa acid (NEPHROCAP) 1 mg Oral Capsule Take [...] assessed heart tracing? Yes Uterine Activity Mode Palpation;[place];Removed Contraction Frequency none Contraction Intensity N/A Resting [...] arriving to work. EFM and TOCO to [employer]. Provider aware. documented in this encounter Nursing Notes * Destiny Agosto MD - 06/27/2025 8:00 AM EDT [facility] OB Triage Progress Note S: Pt [...] times daily. 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 Moodand affect are [...] POC Yellow Color 06/27/2025 7:35 AM EDT [facility] UA Appear POC Clear Clear 06/27/2025 7:35 AM EDT [facility] UA Blood POC Negative Negative 06/27/2025 7:35 AM EDT [facility] UA pH POC 6.5 5.0 - 8.0 pH 06/27/2025 7:35 AM EDT [facility] UA Urobilinogen POC 0.2 0.2, 1.0 06/27/2025 7:35 AM EDT [facility] UA Nitrite POC Negative Negative 06/27/2025 7:35 AM EDT [facility] UA Leuk Est POC Negative Negative 7:35 AM EDT [facility] UA SG POC 1.025 1.001 - 1.035 no units 06/27/2025 7:35 AM EDT [facility] UA Gluc POC Negative Negative mg/dL 06/27/2025 7:35 AM EDT [facility] UA Protein POC Negative Negative mg/dL 06/27/2025 7:35 AM EDT [facility] UA Ketones POC Negative Negative mg/dL 06/27/2025 7:35 AM EDT [facility] Urine STRUCTURE OF URINARY TRACT PROPER / Unknown 06/27/2025 7:33 AM EDT 06/27/2025 7:35 AM EDT us Asael Beard MD POINT OF CARE TEST ORD ERABLES Final Result [facility] [address] [place] [id number] documented in this encounter Visit Diagnoses Not on filedocumented in this encounter Orders Discharge Count Last Ordered Date First Orde red Date DISCHARGE PATIENT 1 06/27/2025 documented in this encounter
--- OUTSIDE RECORDS SUMMARY | 2025-07-05 16:47 | XMS_ITS | Clinical Summary ---
[facility] Address [address] [place] [address] Care Team Providers Care Auto Salvage Worker Name Role Phone Provider, No Known Primary Care Provider Unavail able Allergies Active Allergy Reactions Criticality Noted Date Comments Amoxicillin-Pot Clavulanate Rash Low 08/17/20 10 Medications ursodiol (ACTIGALL) 300 MG capsule Take 1 capsule by mouth 2 (Two) Times a Day. 03/19/2025 Active Rcncwvnm-Nqf-Vt -FA ( 1 + IRON PO) Take [...] Description 06/13/2025 2:15 PM EDT Office Visit [facility] [address] [facility] [address] [place] [phone] Tab Chiu MD renal anomaly, single gestation (Primary Dx) 06/13/2025 2:09 PM EDT - 06/13/2025 11:59 PM EDT Hospital Encounter [facility] DI[facility] [address] [place] [phone] Erik Edgar MD Intrahepatic cholestasis of in second trimester; , unspecified gestational age Discharge Disposition: Home or Self Care 06/13/2025 Travel 05/02/2025 12:45 PM EDT - 05/02/2025 11:59 PM EDT Hospital Encounter [facility] [address] [place] [address] Batool Frederick MD Intrahepatic cholestasis of in second trimester Discharge Disposition: Home or Self Care 05/02/2025 12:45 PM EDT Office Visit [facility] MEDIC[facility] [address] [place] [address] Erik Edgar MD Intrahepatic cholestasis [...] Procedure Name Priority Date/Time Associated Diagnosis Comments REPLACED BY [facility] Routine 06/13/2025 2:37 PM EDT Intrahepatic cholestasis of in second trimester , unspecified gestational age REPLACED BY [facility] Routine 05/02/2025 1:30 PM EDT Intrahepatic cholestasis of in second trimester from Last 3 Months Results * [facility] (06/13/2025 2:37 PM EDT) Only the most recent of2 resultswithin the time period is included. Anatomical Region Laterality Modality Ultrasound 06/13/2025 2:23 PM EDT Narrative 06/13/2025 2:39 PM EDT PAT NAME: BENJY TOURE [facility] REC#: [id number] DA: [id number] PAT GEND: F PAT TYPE: O EXAM RODRIGO: [id number] REF PHYS JENIFER CHRISTIANSON Comparison Studies The [...] EFW (oz) 14 oz EFW by: Hadlock (DRH-DC-LK-FL) Extended Cav. septi pel. tr 7.3 mm [...] Normal Heart / Thorax 3-vessel view: Normal 7-yfifbn-eggymxg view: normal Stomach: Appears normal Bladder: Appears [...] Follow-up as clinically indicated. Coding ======= Description: 73449-74 Follow Up Ultrasound Description: 21035-75 BPP without NST Primary Special Educator: Yessi August RDMS Physician: Tab Chiu MD, FACOG Electronically signed by: Tab Chiu MD, FACOG at: 14:39 Procedure Note Tab Chiu MD - 06/13/2025 PAT NAME: BENJY TOURE MED REC#: [id number] DA: [id number] PAT GEND: F PAT TYPE: O EXAM RODRIGO: [id number] REF PHYS JENIFER CHRISTIANSON Comparison Studies The findings of this study are compared to the prior ultrasound studydated 05/02/25 Patient Status Outpatient Indication ======== Follow up pelvic kidney. Cholestasis. Maternal Assessment Sjybie746 cm Height (ft)5 ft Height (in)6 in Jxyzus32 kg Weight (lb)147 lb BMI23.73 kg/m Method ======= Transabdominal ultrasound examination. View: Adequate view ========= Wallace . Number of fetuses: 1 Dating ====== Method of dating:based on stated TAHIR GA by prior [id number] w + 6 d TAHIR by prior assessment:08/16/2025 Ultrasound examination on:06/13/2025 GA by U/S based upon:AC, BPD, Femur, HC GA by U/S32 w + 4 d TAHIR by U/S:08/04/2025 Previous dating:based on stated TAHIR, selected on 05/02/2025 Agreed TAHIR of previous datin08/16/2025 Assigned:based on stated TAHIR, selected on 06/13/2025 Assigned GA30 w + 6 d Assigned TAHIR:08/16/2025 [id number] d Biometry Standard BPD84.0 mm 33w 6d 98% Hadlock ZSM522.7 mm 36w 2d >99% Lisa HC311.1 mm 34w 6d 97% Hadlock Cerebellum tr42.4 mm 33w 3d 97% Hill AC263.6 mm 30w 3d 35% Hadlock Femur59.7 mm 31w 1d 42% Hadlock Ixinvnj88.8 mm 31w 6d 80% Lisa HC / AC1.18 EFW1,749 g 31w 0d 54% Hadlock EFW (lb)3 lb EFW (oz)14 oz EFW by:Hadlock (CJV-LQ-NO-FL) Extended Cav. septi pel. tr7.3 mm CM9.7 mm 97% Nicolaides Head / Face / Neck Cephalic index0.77 21% Nicolaides Extremities / Bony Struc FL / BPD0.71 FL / HC0.19 FL / AC0.23 Other Structures NPC696 bpm General Evaluation Cardiac activity present. FHR [...] LVOT view:Normal Heart / Thorax 3-vessel view:Normal 5-iknmye-ktptnnp view:normal Stomach:Appears normal Bladder:Appears normal Abdomen Rt [...] Recommendation Follow-up as clinically indicated. Coding ======= Description:46744-97 Follow Up Ultrasound Description:96518-41 BPP without NST Primary Special Educator: Yessi August RDOK Physician: Tab Chiu MD, FACOG Electronically signed by: Tab Chiu MD, FACOG at: 14:39 Erik Edgar MD [facility] ORDERABLES Final Re sult from Last 3 Months Insurance [facility] PPO Member Subscriber Plan / Payer (Ef fective 2018-Present) Name:Benjy Toure Relation to Subscriber:Child Name:Prema Toure Date of :1975 (Home) Address: [address] [place] [address] Payer ID:[id number] (NAIC) Type:Not on file Address: [facility] [address] [place] [id number] Care Teams Auto Salvage Worker Relationship Specialty Start Date End Date Provider, [place] [address] PCP - General 02/01/25
--- OUTSIDE RECORDS SUMMARY | 2025-07-05 16:47 | XMS_ITS | Encounter Summary ---
Author Organization [facility] [place] [address] Care Team Providers Care Physician General Practice Name Role Phone Unavailable Primary Care Provider [...] Diff erent Things 0 06/27/2025 7:28 AM Lteicia Tello RN Trouble Relaxing 0 06/27/2025 7:28 AM Leticia Alston RN Being so Restless That it is Hard to Sit Still 0 06/27/2025 7:28 AM Leticia Tello RN Becoming Easily Annoyed or Irritable 0 06/17 7:28 AM Leticia Tello RN Feeling Afraid as if Somethi ng Awful Might Happen 0 06/27/2025 7:28 AM Leticia Tello RN EDMOND-7 Total Score 0 06/27/2025 7:28 AM Leitcia Tello RN * Suicide Severity Rating Answer Date of Assessment Author No Risk 06/27/2025 7:28 AM Luis Tello RN * [place] Suicide Severity Rating Scale (Q shift for [...]
--- OUTSIDE RECORDS SUMMARY | 2025-07-05 16:47 | XMS_ITS | Clinical Summary ---
Author Organization [facility] Address [address] [facility] [address] [place] [address] Phone Care Team Providers Care Emergency Vehicle Technician Name Role Phone Unavailable Primary Care Provider Unavailabl e Allergies Active Allergy Reactions Criticality Noted Date Comments Amoxicillin-Pot Clavulanate Rash Low 03/16/20 24 Medications FLUoxetine (PROZAC) 10 mg Oral CapsuleIndicati ons:Anxiety and depression Take 1 Capsule by mouth daily. 90 Capsule 3 Active Additional Information Patient not taking.Reason: Therapy Completed, Reported on 05/14/2024 b ddzdzwc-X-bvhzy acid (NEPHROCAP) 1 mg Oral Capsule Take [...] 8:00 AM EDT Hospital Encounter [facility] [address], [place] [address] Asael Beard MD Discharge Disposition: Home or Self Care 06/27/2025 Travel 05/07/2025 9:30 AM EDT - 05/07/2025 11:59 PM EDT Hospital Encounter [facility] [address] [place] [address] Intrahepatic cholestasis of , first trimester (Primary Dx) Discharge Disposition: Home or Self Care 04/12/2025 11:32 AM EDT - 04/12/2025 12:44 PM EDT Hospital Encounter [facility] [place] [address] Asael Beard MD Discharge Disposition: Home or [...] Estimated Date of Delivery 04/12/2025 - Present (07/05/2025) 08/16/2025 (set by Dasha Maravilla, RN on 04/12/2025 based on Other Basis) Dating Summary Based On TAHIR GA Diff Other Basis 08/16/2025 Working Last Menstrual Period on 05/17/2024 (Approximate ) 02/21/2025 +25w1d Vitals Pregravid Weight Height TWG (As of 07/05/2025) Pregrav id BMI 5' 5 (1.651 m) [...] arriving to work. EFM and TOCO to [employer]. Provider aware. Progress Notes - Hospital En [...] POC Yellow Color 06/27/2025 7:35 AM EDT [facility] UA Appear POC Clear Clear 06/27/2025 7:35 AM EDT [facility] UA Blood POC Negative Negative 06/27/2025 7:35 AM EDT [facility] UA pH POC 6.5 5.0 - 8.0 pH 06/27/2025 7:35 AM EDT [facility] UA Urobilinogen POC 0.2 0.2, 1.0 06/27/2025 7:35 AM EDT [facility] UA Nitrite POC Negative Negative 06/27/2025 7:35 AM EDT [facility] UA Leuk Est POC Negative Negative 7:35 AM EDT [facility] UA SG POC 1.025 1.001 - 1.035 no units 06/27/2025 7:35 AM EDT [facility] UA Gluc POC Negative Negative mg/dL 06/27/2025 7:35 AM EDT [facility] UA Protein POC Negative Negative mg/dL 06/27/2025 7:35 AM EDT [facility] UA Ketones POC Negative Negative mg/dL 06/27/2025 7:35 AM EDT [facility] Urine STRUCTURE OF URINARY TRACT PROPER / Unknown 06/27/2025 7:33 AM EDT 06/27/2025 7:35 AM EDT us Asael Beard MD POINT OF CARE TEST ORD ERABLES Final Result [facility] [address] [place] [id number] * BILE ACIDS TOTAL -REF LAB (05/07/2025 10:05 AM EDT) Bile Acids 8 0 - 10 umol/L 05/08/2025 5:41 PM EDT [employer] Comment: INTERPRETIVE INFORMATION: Bile Acids, Total Reference Interval applies to fasting specimens. Performed By: [employer] [employer] [address] [place] [id number] Fashion Photographer: Kiet Sanon MD, PhD CLIA Number: [id number] Blood VENOUS BLOOD / Unknown Venipuncture / Unknown 05/07/2025 10:05 AM EDT 05/07/2025 10:59 AM EDT us Not In Epic Provider CHEMISTRY ORDERABLES Final Result [facility] [address] [place] [address] * (ABNORMAL) COMPREHENSIVE METABOLIC PANEL (05/07/2025 10:05 [...] U/L 05/07/2025 11:35 AM EDT [facility]REF[facility]ED [facility] [employer] Alk Phos 88 36 - 123 U/L 05/07/2025 11:35 AM EDT [facility] eGFR (CKD-EPIcr 2020) 146 >=60 mL/min/1.7 3 m2 05/07/2025 11:35 AM EDT [facility] Comment:Estimated GFR was ca lculated using the CKD-EPIcr (2020) equation refit without race. The equation is recommended by the National Kidney Foundation - [place] Society of Nephrology Task Force. Blood VENOUS BLOOD / Unknown Venipuncture / Unknown 05/07/2025 10:05 AM EDT 05/07/2025 11:02 AM EDT us Not In Epic Provider CHEMISTRY ORDERABLES Final Result [facility] [address] [facility] , [place] [address] from Last 3 Months Insurance [employer] PPO ANTHEM PPO
--- OUTSIDE RECORDS SUMMARY | 2025-07-05 16:47 | XMS_ITS | Encounter Summary ---
[facility] Address [address] [place] [address] Care Team Providers Care Block Press Operator Name Role Phone Provider, No Known [...] on filedocumented in this encounter Care Teams Block Press Operator Relationship Specialty Start Date End Date Provider, [place] [address] PCP - General 02/01/25 documented as of this encounter
== END 2025-07-05 23:59 | disposition home or self-care (01) ==
LOC: LAB.DROPOF 16:45
PROVIDERS: PCP Obstetrics & Gynecology; Visit Provider Obstetrics & Gynecology
DX: O26.643 Intrahepatic cholestasis of pregnancy, third trimester (principal); O26.899 Other specified pregnancy related conditions, unspecified trimester; Z67.91 Unspecified blood type, Rh negative
CPT/HCPCS: 86403

== ENCOUNTER 2025-07-12 09:24 | Outpatient (CLI) | payer BC, SELFPAY ==
[2025-07-12 10:00] VITALS: BP 114/74; PULSE 109; RESP 17; TEMP 37.3; O2SAT 97; BMI 25.6
== END 2025-07-12 10:19 | disposition home or self-care (01) ==
LOC: OBOUT 09:25 → OB 09:27
PROVIDERS: Visit Provider Obstetrics & Gynecology
DX: Z34.03 Encounter for supervision of normal first pregnancy, third trimester (principal); Z3A.35 35 weeks gestation of pregnancy
CPT/HCPCS: 59025; 99212; G0463

== ENCOUNTER 2025-07-12 10:22 | Outpatient (CLI) | payer BC, SELFPAY ==
--- OUTSIDE RECORDS SUMMARY | 2025-06-13 14:09 | XMS_ITS | Encounter Summary ---
[facility] Address [address] [place] [address] Care Team Providers Care Apartment Rental Agent Name Role Phone Provider, No Known Primary Care Provider Unavail able Reason for Referral * Diagnostic Imaging (Routine) - Closed Specialty Diagnoses / Procedures Referred By Contac t Referred To Contact Radiology Diagnoses Intrahepatic cholestasis of in second trimester , unspecified gestational age Procedures [facility] Erik Edgar MD [address] [facility] [address] [place] [address] Phone: tel: fax: [facility] DI[facility] [address] [place] [address] Phone: tel: Referral ID Status Reason Start Date Expiration Date Visits Re quested Visits Authorized [id number] Closed 05/02/2025 08/01/2026 1 1 Reason for Visit * Diagnostic Imaging (Routine) - Closed Specialty Diagnoses / Procedures Referred By Conthafsa t Referred To Contact Radiology Diagnoses Intrahepatic cholestasis of in second trimester , unspecified gestational age Procedures [facility] Erik Edgar MD [address] [facility] [address] [place] [address] Phone: tel: fax: [facility] [address] [place] [address] Phone: tel: Referral ID Status Reason Start Date Expiration Date Visits Re quested Visits Authorized [id number] Closed 05/02/2025 08/01/2026 1 1 Encounter Details Date Type Department Care Team (Late st Contact Info) Description 06/13/2025 2:09 PM EDT - 06/13/2025 11:59 PM EDT Hospital Encounter [facility] [address] [place] [address] Erik Edgar MD [address] [facility] [address] [place] [address] Intrahepatic cholestasis of in second [...] this encounter Medications at Time of Discharge Jsmzxxog-Uqw-Vq-F A ( 1 + IRON PO) Take 1 tablet by mouth Daily. 11/27/2024 ursodiol (ACTIGALL) 300 MG capsule Take 1 capsule by mouth 2 (Two) Times a Day. 03/19/2025 documented as of this encounter Plan of Treatment Not on file documented as of this encounter Procedures Procedure Name Priority Date/Time Associated Diagnosis Comments [facility] Routine 06/13/2025 2:37 PM EDT Intrahepatic cholestasis of in second trimester , unspecified gestational age documented in this encounter Results * [facility] (06/13/2025 2:37 PM EDT) Anatomical Region Laterality Modality Ultrasound 06/13/2025 2:23 PM EDT Narrative 06/13/2025 2:39 PM EDT PAT NAME: BENJY TOURE MED REC#: [id number] DA: [id number] PAT GEND: F PAT TYPE: O EXAM RODRIGO: [id number] REF PHYS JENIFER CHRISTIANSON Comparison Studies The [...] EFW (oz) 14 oz EFW by: Hadlock (XNH-LC-DP-FL) Extended Cav. septi pel. tr 7.3 mm [...] Normal Heart / Thorax 3-vessel view: Normal 4-jzsytp-yieqbjl view: normal Stomach: Appears normal Bladder: Appears [...] Follow-up as clinically indicated. Coding ======= Description: 68216-96 Follow Up Ultrasound Description: 82102-63 BPP without NST Package Sorter: Yessi August RDMS Physician: Tab Chiu MD, FACOG Electronically signed by: Tab Chiu MD, FACOG at: 14:39 Procedure Note Tab Chiu MD - 06/13/2025 PAT NAME: BENJY TOURE MED REC#: [id number] DA: 2005 PAT GEND: F PAT TYPE: O EXAM RODRIGO: [id number] REF PHYS JENIFER CHRISTIANSON Comparison Studies The findings of this study are compared to the prior ultrasound studydated 05/02/25 Patient Status Outpatient Indication ======== Follow up pelvic kidney. Cholestasis. Maternal Assessment Sxzkkk059 cm Height (ft)5 ft Height (in)6 in Ststjz63 kg Weight (lb)147 lb BMI23.73 kg/m Method ======= Transabdominal ultrasound examination. View: Adequate view ========= Wallace . Number of fetuses: 1 Dating ====== Method of dating:based on stated TAHIR GA by prior [id number] w + 6 d TAHIR by prior assessment:08/16/2025 Ultrasound examination on:06/13/2025 GA by U/S based upon:AC, BPD, Femur, HC GA by U/S32 w + 4 d TAHIR by U/S:08/04/2025 Previous dating:based on stated TAHIR, selected on 05/02/2025 Agreed TAHIR of previous datin08/16/2025 Assigned:based on stated TAHIR, selected on 06/13/2025 Assigned GA30 w + 6 d Assigned TAHIR:08/16/2025 d Biometry Standard BPD84.0 mm 33w 6d 98% Hadlock KCM856.7 mm 36w 2d >99% Lisa HC311.1 mm 34w 6d 97% Hadlock Cerebellum tr42.4 mm 33w 3d 97% Hill AC263.6 mm 30w 3d 35% Hadlock Femur59.7 mm 31w 1d 42% Hadlock Jysdmtq38.8 mm 31w 6d 80% Lisa HC / AC1.18 EFW1,749 g 31w 0d 54% Hadlock EFW (lb)3 lb EFW (oz)14 oz EFW by:Hadlock (FKG-SV-WT-FL) Extended Cav. septi pel. tr7.3 mm CM9.7 mm 97% Nicolaides Head / Face / Neck Cephalic index0.77 21% Nicolaides Extremities / Bony Struc FL / BPD0.71 FL / HC0.19 FL / AC0.23 Other Structures YOI352 bpm General Evaluation Cardiac activity present. FHR [...] LVOT view:Normal Heart / Thorax 3-vessel view:Normal 1-ublyqg-oegqzgi view:normal Stomach:Appears normal Bladder:Appears normal Abdomen Rt [...] Recommendation Follow-up as clinically indicated. Coding ======= Description:98075-76 Follow Up Ultrasound Description:45312-70 BPP without NST Package Sorter: Yessi August RDMS Physician: Tab Chiu MD, FACOG Electronically signed by: Tab Chiu MD, FACOG at: 14:39 us Erik Edgar MD IMG US ORDERABLES Final Re sult documented in this encounter Visit Diagnoses Diagnosis Intrahepatic cholestasis of in second trimester , unspecified gestational age documented in this encounter Care Teams Apartment Rental Agent Relationship Specialty Start Date End Date Provider, [place] [address] PCP - General 02/01/25 documented as of this encounter
--- OUTSIDE RECORDS SUMMARY | 2025-06-13 14:15 | XMS_ITS | Encounter Summary ---
Author Organization [facility] yste Address [address] [place] [address] Care Team Providers Care Community Center Coordinator Name Role Phone Provider, No Known Primary Care Provider Unavail able Reason for Visit * Reason Comments cholestasis, RT pelvic kidney Encounter Details Date Type Department Care Team (Late st Contact Info) Description 06/13/2025 2:15 PM EDT Office Visit [facility] MED[facility] [address] [place] [address] Tab Chiu MD [address] [facility] [address] [place] [address] renal anomaly, single gestation (Primary Dx) Social [...] Primary documented in this encounter Care Teams Community Center Coordinator Relationship Specialty Start Date End Date Provider, [place] [address] PCP - General 02/01/25 documented as of this encounter
--- OUTSIDE RECORDS SUMMARY | 2025-06-27 07:12 | XMS_ITS | Encounter Summary ---
Author Organization [place] [address] Care Team Providers Care Train Announcer Name Role Phone Unavailable Primary Care Provider Unavailabl e Reason for Visit * Reason Comments Rule Out ROM Encounter Details Date Type Department Care Team (Latest Contact Info) Description 06/27/2025 7:12 AM EDT - 06/27/2025 8:00 AM EDT Hospital Encounter EDG [facility] [place] [address] Asael Beard MD [address] [place] [address] [place] [address] Discharge Disposition: Home or Self [...] 06/27/2025 7:28 AM Luis Tello RN * [place] Suicide Severity Rating Scale (Q shift for [...] shopping? No 06/27/2025 7:50 AM EDT Leticia Peerz RN Because of a physical, menta l [...] Perez RN - 06/27/2025 7:51 AM EDT [facility] Discharge Instructions Julianna Toure [id number] [facility] [place] [address] Activity Restrictions: No Restrictions Diet: regular Call [...] encounter Medications at Time of Discharge b xdmoahn-W-qfhkx acid (NEPHROCAP) 1 mg Oral Capsule Take [...] Means Destination Comment s Home or Self Detention documented in this encounter Progress Notes * Leticia Perez RN - 06/27/2025 8:00 AM EDT 06/27/25 0748 Heart Rate Mode External US;Removed Baseline Rate 135 bpm Baseline Classification Normal Variability Moderate Pattern A Movement Present RN assessed heart tracing? Yes Uterine Activity Mode Palpation;Knobel;Removed Contraction Frequency none Contraction Intensity N/A Resting [...] questions or concerns. Discharged home, ambulatory. * Leticai Perez RN - 06/27/2025 7:25 AM EDT Arrived to triage c/o leaking. First noticed when awoke this morning at 0530, underwear were wet. Fluid down her leg when she stood up. Happened again when she went to the bathroom after arriving to work. EFM and TOCO to [employer]. Provider aware. documented in this encounter Nursing Notes * Destiny Agosto MD - 06/27/2025 8:00 AM EDT [facility] OB Triage Progress Note S: Pt [...] times daily. 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 Moodand affect are [...] POC Yellow Color 06/27/2025 7:35 AM EDT [facility] UA Appear POC Clear Clear 06/27/2025 7:35 AM EDT [facility] UA Blood POC Negative Negative 06/27/2025 7:35 AM EDT [facility] UA pH POC 6.5 5.0 - 8.0 pH 06/27/2025 7:35 AM EDT [facility] UA Urobilinogen POC 0.2 0.2, 1.0 06/27/2025 7:35 AM EDT [facility] UA Nitrite POC Negative Negative 06/27/2025 7:35 AM EDT [facility] UA Leuk Est POC Negative Negative 7:35 AM EDT [facility] UA SG POC 1.025 1.001 - 1.035 no units 06/27/2025 7:35 AM EDT [facility] UA Gluc POC Negative Negative mg/dL 06/27/2025 7:35 AM EDT [facility] UA Protein POC Negative Negative mg/dL 06/27/2025 7:35 AM EDT [facility] UA Ketones POC Negative Negative mg/dL 06/27/2025 7:35 AM EDT [facility] Urine STRUCTURE OF URINARY TRACT PROPER / Unknown 06/27/2025 7:33 AM EDT 06/27/2025 7:35 AM EDT us Asael Beard MD POINT OF CARE TEST ORD ERABLES Final Result [facility] [address] [place] [id number] documented in this encounter Visit Diagnoses Not on filedocumented in this encounter Orders Discharge Count Last Ordered Date First Orde red Date DISCHARGE PATIENT 1 06/27/2025 documented in this encounter
--- OUTSIDE RECORDS SUMMARY | 2025-07-12 10:25 | XMS_ITS | Encounter Summary ---
[facility] Organization [facility] Address [address] [place] [address] Care Team Providers Care Crop Or Grain Farmworker Name Role Phone Provider, No Known Primary [...] on filedocumented in this encounter Care Teams Crop Or Grain Farmworker Relationship Specialty Start Date End Date Provider, [place] [address] PCP - General 02/01/25 documented as of this encounter
--- OUTSIDE RECORDS SUMMARY | 2025-07-12 10:25 | XMS_ITS | Clinical Summary ---
Author Organization [facility] Address [address] [facility] [address] [place] [address] Phone Care Team Providers Care Citrix Engineer Name Role Phone Unavailable Primary Care Provider Unavailabl e Allergies Active Allergy Reactions Criticality Noted Date Comments Amoxicillin-Pot Clavulanate Rash Low 03/16/20 24 Medications FLUoxetine (PROZAC) 10 mg Oral CapsuleIndicati ons:Anxiety and depression Take 1 Capsule by mouth daily. 90 Capsule 3 Active Additional Information Patient not taking.Reason: Therapy Completed, Reported on 05/14/2024 b gdqloow-H-tlhlx acid (NEPHROCAP) 1 mg Oral Capsule Take [...] 8:00 AM EDT Hospital Encounter [facility] [address], [place] [id number] Asael Beard MD Discharge Disposition: Home or Self Care 06/27/2025 Travel 05/07/2025 9:30 AM EDT - 05/07/2025 11:59 PM EDT Hospital Encounter [facility] LABORATORY [facility] [address] [place] [place] [id number] Intrahepatic cholestasis of , first trimester (Primary Dx) Discharge Disposition: Home or Self Care 04/12/2025 11:32 AM EDT - 04/12/2025 12:44 PM EDT Hospital Encounter [facility] [place] [id number] Asael Beard MD Discharge Disposition: Home or [...] Estimated Date of Delivery 04/12/2025 - Present (07/12/2025) 08/16/2025 (set by Dasha Maravilla, RN on 04/12/2025 based on Other Basis) Dating Summary Based On TAHIR GA Diff Other Basis 08/16/2025 Working Last Menstrual Period on 05/17/2024 (Approximate ) 02/21/2025 +25w1d Vitals Pregravid Weight Height TWG (As of 07/12/2025) Pregrav id BMI 5' 5 (1.651 m) [...] arriving to work. EFM and TOCO to [employer]. Provider aware. Progress Notes - Hospital En [...] POC Yellow Color 06/27/2025 7:35 AM EDT [facility] UA Appear POC Clear Clear 06/27/2025 7:35 AM EDT [facility] UA Blood POC Negative Negative 06/27/2025 7:35 AM EDT [facility] UA pH POC 6.5 5.0 - 8.0 pH 06/27/2025 7:35 AM EDT [facility] UA Urobilinogen POC 0.2 0.2, 1.0 06/27/2025 7:35 AM EDT [facility] UA Nitrite POC Negative Negative 06/27/2025 7:35 AM EDT [facility] UA Leuk Est POC Negative Negative 7:35 AM EDT [facility] UA SG POC 1.025 1.001 - 1.035 no units 06/27/2025 7:35 AM EDT [facility] UA Gluc POC Negative Negative mg/dL 06/27/2025 7:35 AM EDT [facility] UA Protein POC Negative Negative mg/dL 06/27/2025 7:35 AM EDT [facility] UA Ketones POC Negative Negative mg/dL 06/27/2025 7:35 AM EDT [facility] Urine STRUCTURE OF URINARY TRACT PROPER / Unknown 06/27/2025 7:33 AM EDT 06/27/2025 7:35 AM EDT us Asael Beard MD POINT OF CARE TEST ORD ERABLES Final Result [facility] [address] [place] [id number] * BILE ACIDS TOTAL -REF LAB (05/07/2025 10:05 AM EDT) Bile Acids 8 0 - 10 umol/L 05/08/2025 5:41 PM EDT [facility] Comment: INTERPRETIVE INFORMATION: Bile Acids, Total Reference Interval applies to fasting specimens. Performed By: [facility] [address] [place] [id number] Personal Computer Network Engineer: Kiet Sanon MD, PhD CLIA Number: [id number] Blood VENOUS BLOOD / Unknown Venipuncture / Unknown 05/07/2025 10:05 AM EDT 05/07/2025 10:59 AM EDT us Not In Epic Provider CHEMISTRY ORDERABLES Final Result [facility] [address] [place] [address] * (ABNORMAL) COMPREHENSIVE METABOLIC PANEL (05/07/2025 10:05 [...] U/L 05/07/2025 11:35 AM EDT [facility] [place] Alk Phos 88 36 - 123 U/L 05/07/2025 11:35 AM EDT [facility] eGFR (CKD-EPIcr 2020) 146 >=60 mL/min/1.7 3 m2 05/07/2025 11:35 AM EDT [facility] Comment:Estimated GFR was ca lculated using the CKD-EPIcr (2020) equation refit without race. The equation is recommended by the National Kidney Foundation - [place] Society of Nephrology Task Force. Blood VENOUS BLOOD / Unknown Venipuncture / Unknown 05/07/2025 10:05 AM EDT 05/07/2025 11:02 AM EDT us Not In Epic Provider CHEMISTRY ORDERABLES Final Result [facility] [place] [address] [facility] [place] [address] from Last 3 Months Insurance ANTHEM PPO AN[employer]M PPO
--- OUTSIDE RECORDS SUMMARY | 2025-07-12 10:25 | XMS_ITS | Encounter Summary ---
Author Organization [facility] [place] [address] Care Team Providers Care Boom Operator Name Role Phone Unavailable Primary Care [...] 06/27/2025 7:28 AM Luis Tello RN * [place] Suicide Severity Rating Scale (Q shift for [...]
--- OUTSIDE RECORDS SUMMARY | 2025-07-12 10:25 | XMS_ITS | Clinical Summary ---
[facility] Organization [facility] Address [address] [place] [address] Care Team Providers Care Ict Educator Name Role Phone Provider, No Known Primary Care Provider Unavail able Allergies Active Allergy Reactions Criticality Noted Date Comments Amoxicillin-Pot Clavulanate Rash Low 08/17/20 10 Medications ursodiol (ACTIGALL) 300 MG capsule Take 1 capsule by mouth 2 (Two) Times a Day. 03/19/2025 Active Fkaoomby-Pgp-Ny -FA ( 1 + IRON PO) Take [...] Description 06/13/2025 2:15 PM EDT Office Visit [facility] [address] [facility] [address] [place] [id number] Tab Chiu MD renal anomaly, single gestation (Primary Dx) 06/13/2025 2:09 PM EDT - 06/13/2025 11:59 PM EDT Hospital Encounter [facility] [address] [place] [phone] Erik Edgar MD Intrahepatic cholestasis of in second trimester; , unspecified gestational age Discharge Disposition: Home or Self Care 06/13/2025 Travel 05/02/2025 12:45 PM EDT - 05/02/2025 11:59 PM EDT Hospital Encounter [facility] [address] [place] [address] Batool Frederick MD Intrahepatic cholestasis of in second trimester Discharge Disposition: Home or Self Care 05/02/2025 12:45 PM EDT Office Visit [facility] MATERNAL MEDICINE [address] [place] [address] [place] [address] Erik Edgar MD Intrahepatic cholestasis [...] 05/17/2025 07/20/2024, , 08/22/2019, Additional history exists RSV Vaccine - Adults (1 - Risk 1-dose series) 06/21/2025 TDAP/TD VACCINES (3 - Td or Tdap) 05/11/2032 05/11/2022, 05/17/2016 Pneumococcal Vaccine 0-49 Aged Out 2005, 2005, 2005 No longer eligible based on patient's age to complete this topic MENINGOCOCCAL VACCINE Completed 06/08/2022, 016 HEPATITIS C SCREENING Completed 12/31/2024 , 12/31/2024, 12/21/2024 Procedures Procedure Name Priority Date/Time Associated Diagnosis Comments [facility] Routine 06/13/2025 2:37 PM EDT Intrahepatic cholestasis of in second trimester , unspecified gestational age [facility] Routine 05/02/2025 1:30 PM EDT Intrahepatic cholestasis of in second trimester from Last 3 Months Results * [facility] (06/13/2025 2:37 PM EDT) Only the most recent of2 resultswithin the time period is included. Anatomical Region Laterality Modality Ultrasound 06/13/2025 2:23 PM EDT Narrative 06/13/2025 2:39 PM EDT PAT NAME: BENJY TOURE MED REC#: [id number] DA: 2005 PAT GEND: F PAT TYPE: O EXAM RODRIGO: [id number] REF PHYS JENIFER CHRISTIANSON Comparison Studies The [...] EFW (oz) 14 oz EFW by: Hadlock ([id number]) Extended Cav. septi pel. tr 7.3 mm [...] Normal Heart / Thorax 3-vessel view: Normal 5-aytmop-wznmrnh view: normal Stomach: Appears normal Bladder: Appears [...] Follow-up as clinically indicated. Coding ======= Description: 54783-30 Follow Up Ultrasound Description: 25728-47 BPP without NST Bar Host/Hostess: Yessi August RDMS Physician: Tab Chiu MD, FACOG Electronically signed by: Tab Chiu MD, FACOG at: 14:39 Procedure Note Tab Chiu MD - 06/13/2025 PAT NAME: BENJY TOURE MED REC#: [id number] DA: [id number] PAT GEND: F PAT TYPE: O EXAM RODRIGO: [id number] REF PHYS JENIFER CHRISTIANSON Comparison Studies The findings of this study are compared to the prior ultrasound studydated 05/02/25 Patient Status Outpatient Indication ======== Follow up pelvic kidney. Cholestasis. Maternal Assessment Lqrifx632 cm Height (ft)5 ft Height (in)6 in Aljdcu44 kg Weight (lb)147 lb BMI23.73 kg/m Method ======= Transabdominal ultrasound examination. View: Adequate view ========= Wallace . Number of fetuses: 1 Dating ====== Method of dating:based on stated TAHIR GA by prior [id number] w + 6 d TAHIR by prior assessment:08/16/2025 Ultrasound examination on:06/13/2025 GA by U/S based upon:AC, BPD, Femur, HC GA by U/S32 w + 4 d TAHIR by U/S:08/04/2025 Previous dating:based on stated TAHIR, selected on 05/02/2025 Agreed TAHIR of previous datin08/16/2025 Assigned:based on stated TAHIR, selected on 06/13/2025 Assigned GA30 w + 6 d Assigned TAHIR:08/16/2025 [id number] d Biometry Standard BPD84.0 mm 33w 6d 98% Hadlock QKT892.7 mm 36w 2d >99% Lisa HC311.1 mm 34w 6d 97% Hadlock Cerebellum tr42.4 mm 33w 3d 97% Hill AC263.6 mm 30w 3d 35% Hadlock Femur59.7 mm 31w 1d 42% Hadlock Mxgyhca47.8 mm 31w 6d 80% Lisa HC / AC1.18 EFW1,749 g 31w 0d 54% Hadlock EFW (lb)3 lb EFW (oz)14 oz EFW by:Hadlock ([id number]-FL) Extended Cav. septi pel. tr7.3 mm CM9.7 mm 97% Nicolaides Head / Face / Neck Cephalic index0.77 21% Nicolaides Extremities / Bony Struc FL / BPD0.71 FL / HC0.19 FL / AC0.23 Other Structures CWW655 bpm General Evaluation Cardiac activity present. FHR [...] LVOT view:Normal Heart / Thorax 3-vessel view:Normal 0-apbkhg-lpwcdko view:normal Stomach:Appears normal Bladder:Appears normal Abdomen Rt [...] Recommendation Follow-up as clinically indicated. Coding ======= Description:28405-99 Follow Up Ultrasound Description:38938-52 BPP without NST Bar Host/Hostess: Yessi August RDMS Physician: Tab Chiu MD, FACOG Electronically signed by: Tab Chiu MD, FACOG at: 14:39 Erik Edgar MD [facility] ORDERABLES Final Re sult from Last 3 Months Insurance [facility] PPO Care Teams Ict Educator Relationship Specialty Start Date End Date Provider, [place] [address] PCP - General 02/01/25
--- NOTE | 2025-07-12 10:31 | US_ITS ---
PROCEDURE: US OB BIOPHYSICAL PROFILE CLINICAL INDICATION: BPP and growth COMPARISON: US US OB /MATERNAL DETAIL from 03/29/2025 FINDINGS: Transabdominal sonographic images of the uterus were obtained. From her established due date she is 38weeks 1day. The following parameters are obtained: Viable Fetus in the cephalic presentation with an anterior placenta grade 2. Average ultrasound age is 37weeks 2days Estimated weight 3,040g, 6 lb 11 oz The cervix measures 3.16 cm in length. Measurements: heart Rate = 132bpm BPD = 38weeks 0 days, 69 percentile HC = 38weeks 6days, 45 percentile AC = 37weeks 2days, 4 percentile FL = 34weeks 6days, <2 percentile HC/AC is 1.02 FL/BPD is 0.73 FL/AC is 0.2 30 percentile Amniotic fluid index: 13.97cm, MVP 6.0 cm Qualitative AFV:2 Breathing movements: 2 Gross Body Movements: 2 Tone: 2 Biophysical profile score: 8 No obvious anomalies evident.Bladder, three-vessel cord appear normal. There is a pelvic kidney noted. The opposite kidney appears normal. IMPRESSION: 1. Viable fetus in the cephalic presentation with anterior placenta grade 2. 2. The fluid is within normal limits with an amniotic fluid index 13.97 cm, MVP 6.0 cm. 3. Biophysical profile is 8/8 with good breathing movement and movement seen. 4. There has been good interval growth with the fetus currently 30th percentile. The femur length is less than the 2nd percentile. 5. Fetus has a kidney in the normal position and the 2nd kidney in the pelvis. 6. The rest of the limited anatomical scan appears normal. Dictated by: Jayden Joiner MD 07/12/2025 16:59 Jayden Joiner MD in OV 07/12/2025 16:59
== END 2025-07-12 23:59 | disposition home or self-care (01) ==
LOC: RAD 10:23
PROVIDERS: PCP Obstetrics & Gynecology; Visit Provider Obstetrics & Gynecology
DX: O35.EXX0 Maternal care for other (suspected) fetal abnormality and damage, fetal genitourinary anomalies, not applicable or unspecified (principal); O26.643 Intrahepatic cholestasis of pregnancy, third trimester; O26.893 Other specified pregnancy related conditions, third trimester; Z67.91 Unspecified blood type, Rh negative; Z3A.38 38 weeks gestation of pregnancy
CPT/HCPCS: 76816; 76819

== ENCOUNTER 2025-07-25 12:30 | Inpatient (IN) | payer BC, SELFPAY ==
[2025-07-25 12:49] VITALS: BP 124/73; PULSE 96; RESP 18; TEMP 36.6; O2SAT 98; BMI 27.1
[2025-07-25 14:45] LABS: Hematocrit 29.5 % (37.0-47.0); Hemoglobin 10.0 g/dL (12.2-16.2); Immature Granulocytes % 2.4 %; Mean Corpuscular HGB Conc 33.9 g/dL (31.8-35.4); Mean Corpuscular Hemoglobin 29.3 pg (27.0-31.2); Mean Corpuscular Volume 86.5 fl (81-99); Nucleated Red Blood Cells % 0 %; Platelet Count 194 K/mm3 (142-424); Red Blood Count 3.41 M/mm3 (4.20-5.40); Red Cell Distribution Width-SD 40.9 fL; White Blood Count 9.3 K/mm3 (4.5-13.0)
[2025-07-25 16:32] VITALS: BP 122/70; PULSE 81; RESP 17; TEMP 37.1; O2SAT 99
[2025-07-25 19:42] LABS: Alanine Aminotransferase 21 U/L (12-78); Albumin Level 3.2 g/dl (3.5-5.0); Albumin/Globulin Ratio 1.3 (1.1-1.8); Alkaline Phosphatase 170 U/L (38-126); Anion Gap 12.8 mEq/L (5-15); Aspartate Amino Transferase 29 U/L (14-36); Bilirubin,Total 0.6 mg/dl (0.2-1.3); Blood Urea Nitrogen 7 mg/dl (7-17); Calcium 8.3 mg/dl (8.4-10.2); Carbon Dioxide 22 mmol/L (22.0-30.0); Chloride 104 mmol/L (98-107); Creatinine Clearance Estimated 209 mL/min (50-200); Creatinine,Serum 0.50 mg/dl (0.52-1.04); Estimated Glomerular Filt Rate 157 ml/min (>60); GFR (African American) 190 ML/MIN (>60); Globulin 2.5 g/dL (1.3-3.2); Glucose 56 mg/dl (74-100); Potassium 3.8 mmoL/L (3.5-5.1); Sodium 135 mmol/L (136-145); Total Protein,Serum 5.7 g/dl (6.3-8.2)
--- NOTE | 2025-07-25 21:07 | EXP.OB.APHP ---
OB - H&P: HPI Antepartum History of Present Illness Chief complaint: Intrahepatic cholestasis of History of present illness: Ms Julianna Toure is a 20 yo at 36w6d who presents to [facility] L&D for scheduled induction of labor secondary to intraheptic cholestasis of . ICP was diagnosed in the first trimester. She has been taking Ursodiol 300 mg TID. Last CMP demonstrated AST 27 and ALT 13. Most recent bile acids was 8.5. Bile acids reached 17.6 02/28/25. She has had good care and comanagement with [facility] at [facility]. Baby has a known right pelvic kidney that has been seen on multiple ultrasounds. History of Present Criteria for establishing EDC:: based on 1st trimester US only care: good care Ultrasounds: abnormal US findings (right pelvic kidney) Obstetrical complications: other (Intrahepatic cholestasis of ) Medical complications: none Labs Blood type: A (-) negative Rubella: immune RPR/VDRL: nonreactive GBS status: negative HBsAG: negative PFSH PFSH Disclaimer: The information contained in this section may have been updated after the patient was seen, as this information can be updated by other users. 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 period Intrahepatic cholestasis of in first trimester Pruritus of palm abdomen and soles of feet Nausea/vomiting in Contraception management Abnormal uterine bleeding Hyperlipidemia Internal hordeolum of left eye Surgical History History of tonsillectomy Family History Other No significant family history Social History Smoking Status: Never smoker alcohol intake: never substance use type: denies use current occupational status: employed Travel in the last 8 weeks?: None household members: family housing: house Have you lived/traveled outside US in past 30 days?: No Contact w/someone who lives/traveled outside US past 30 days?: No Exposure to someone with infectious disease in past 14 days?: No Do you have a fever (greater than 100.4 F or 38 C)?: No Have you tested positive for COVID-19?: No Exposed to someone with COVID-19 in past 14 days?: No Do you have a sore throat?: No Do you have a cough?: Yes Do you have any weakness?: No Do you have any diarrhea?: No Are you experiencing any unusual bleeding?: No Do you have any muscle aches/pain?: No Do you have any abdominal pain?: No Are you experiencing loss of taste or smell?: No Other Medical History Have you received the Flu Vaccine for this season: No Have you received the Pneumonia Vaccine: No Review of Systems Review of Systems Review of systems:: pertinent systems reviewed and negative unless documented below Meds Home Medications and Allergies Home Medications ?Medication ?Instructions ?Recorded ?Confirmed ?Type vits no.126-ferrous fum 1 tab PO DAILY 12/25/24 07/25/25 History 28 mg iron-folic acid 800 mcg tablet (Classic ) ursodiol 300 mg capsule 300 mg PO BID 07/25/25 07/25/25 History New Prescriptions to Start Prescriptions: Allergies Allergy/AdvReac Type Severity Reaction Status Date / Time amoxicillin (From Augmentin) Allergy Mild rash Verified 07/22/25 15:19 clavulanic acid (From Allergy Mild rash Verified 07/22/25 15:19 Augmentin) OB - H&P: Exam Physical Exam Vital signs: Temp Pulse Resp BP Pulse Ox O2 Del Method 98.7 F 81 17 122/70 99 Room Air 07/25/25 16:32 07/25/25 16:32 07/25/25 16:32 07/25/25 16:32 07/25/25 16:32 07/25/25 16:32 Constitutional no acute distress and cooperative Routine HEENT Exam Head: Present normocephalic and atraumatic Eye: Absent conjunctivae pink ENT: Present mucous membranes moist Routine Neck Exam Present full ROM Routine Respiratory Exam Present CTA bilaterally and normal respiratory effort Routine Cardiovascular Exam Present RRR Routine Abdominal Exam Present soft (Gravid); Absent tenderness Routine Rectal Exam Patient deferred: visual exam Routine Exam External: Present normal urethra appearance; Absent erythema, swelling, lesions, lacerations or vulvar erythema Routine Extremities Exam Present full ROM; Absent edema or calf tenderness Routine Neurological Exam Present alert, moving all extremities and normal speech Routine Psychiatric Exam Present normal affect and cooperative Detailed Labor and Delivery Exam Dilation (cm): 1 Effacement (%): 60 Cervix position: mid station: -2 Consistency: soft Membranes: intact Baseline heart rate: 125 monitor accelerations: Present monitor decelerations: None nursing home variability: Moderate (11-25) OB - Results Labs Labs: Short CBC 07/25/25 Range/Units 14:32 WBC 9.3 (4.5-13.0) K/mm3 Hgb 10.0 L (12.2-16.2) g/dL Hct 29.5 L (37.0-47.0) % Plt Count 194 (142-424) K/mm3 BMP 07/25/25 14:32 Sodium 135 L Potassium 3.8 Chloride 104 Carbon Dioxide 22 BUN 7 Creatinine 0.50 L Glucose 56 L Calcium 8.3 L Liver Function 07/25/25 Range/Units 14:32 Total Bilirubin 0.6 (0.2-1.3) mg/dl AST 29 (14-36) U/L ALT 21 (12-78) U/L Alkaline Phosphatase 170 H (38-126) U/L Albumin 3.2 L (3.5-5.0) g/dl OB - A/P Antepartum (1) Intrahepatic cholestasis of : Status: Acute (2) Rh negative state in antepartum period: Status: Acute Additional Plan Planning to breastfeed?: Yes Additional Information:: Admit to [facility] L&D for induction of labor Induction of labor with Cytotec followed by Pitocin GBS negative Close monitoring Anticipate vaginal delivery
[2025-07-25] MEDS: BUTORPHANOL TARTRATE 1 MG/ML VIAL IV (21:11)
[2025-07-25] MEDS: ONDANSETRON 4MG/2ML VIAL 4 MG IV (21:11)
[2025-07-26] MEDS: BUTORPHANOL TARTRATE 1 MG/ML VIAL IV ×2 (01:14→03:30)
[2025-07-26] MEDS: OXYTOCIN/RINGERS LACTATE 30 UNITS/500 ML BAG IV (04:48)
[2025-07-26] MEDS: DEXTROSE 5%-LACTATED RINGERS 1,000 ML 125 ML IV ×2 (04:49→12:31)
[2025-07-26 07:52] VITALS: BP 144/66; PULSE 75; RESP 18; TEMP 36.9; O2SAT 98
[2025-07-26] MEDS: LACTATED RINGERS 1000ML 1,000 ML 250 ML IV (09:21)
--- NOTE | 2025-07-26 11:52 | P.PNANES_ITS ---
[facility] Disclaimer: The information contained in this section may have been updated after the patient was seen, as this information can be updated by other users. 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 period Intrahepatic cholestasis of in first trimester Pruritus of palm abdomen and soles of feet Nausea/vomiting in Contraception management Abnormal uterine bleeding Hyperlipidemia Internal hordeolum of left eye Surgical History History of tonsillectomy Family History Other No significant family history Social History Smoking Status: Never smoker alcohol intake: never substance use type: denies use current occupational status: employed Travel in the last 8 weeks?: None household members: family housing: house Have you lived/traveled outside US in past 30 days?: No Contact w/someone who lives/traveled outside US past 30 days?: No Exposure to someone with infectious disease in past 14 days?: No Do you have a fever (greater than 100.4 F or 38 C)?: No Have you tested positive for COVID-19?: No Exposed to someone with COVID-19 in past 14 days?: No Do you have a sore throat?: No Do you have a cough?: Yes Do you have any weakness?: No Do you have any diarrhea?: No Are you experiencing any unusual bleeding?: No Do you have any muscle aches/pain?: No Do you have any abdominal pain?: No Are you experiencing loss of taste or smell?: No [facility] Anesthesia Checklist Patient Identification Patient Identification: Verbal (Name & ) Structural Data Admitted From: Home Planned Operative Procedure/s: labor epidural Airway Assessment Mallampati Score:: Class II C-Spine Mobility Assessed: Yes TMJ Mobility Assessed: Yes Dentition: Good Dentition Neurological Assessment Level of Consciousness: Awake, Alert and Appropriate Anesthesia Plan Anesthesia Risk discussed: Yes Anesthesia Plan: Verified ASA Class: II Anesthesia Type: Epidural
[2025-07-26 15:14] LABS: RPR W/RFX Titers Nonreactive (Nonreactive)
[2025-07-26] MEDS: OXYTOCIN/RINGERS LACTATE 30 UNITS/500 ML BAG 40 UNITS IV (18:06)
--- NOTE | 2025-07-26 18:12 | EXP.DN ---
Delivery Note Delivery Date:: 07/26/25 Delivery Time:: 18:02 Anesthesia Type: Epidural Was labor medically induced?: Yes Induction method: per misoprostol protocol Gestational age (weeks): 37 Infant delivered prior to 39 weeks?: Yes Justification for early elective delivery:: Liver Disorder (intrahepatic cholestasis of ) Gender: Male at 1 minute: 8 at 5 minutes: 9 Delivery Procedure:: Mom complete with epidural. Pushed for approximately 25 minutes. Head delivered spontaneously over intact perineum in OA position. Nuchal cord x 1 was easily reduced. Anterior shoulder delivered with gentle downward pressure. Posterior shoulder and remainder of body delivered spontaneously. Baby placed on maternal abdomen, mouth and nares bulb suctioned, warmed/dried and stimulated. Delayed cord clamping was performed for 60 seconds. Cord was clamped and cut by father of baby. Cord blood was obtained. Placenta delivered spontaneously and intact. Placenta will be sent to pathology for review. No lacerations. Right labial abrasion was hemostatic. Mom and baby were skin to skin and doing well after delivery. Live male baby (baby's name is Terence) APGARs 8 (1 min), 9 (5 min) EBL 100 mL Placental Delivery Description: Spontaneous
[2025-07-26] MEDS: BENZOCAINE-MENTHOL SPRAY 56GM CAN TP (18:54)
[2025-07-26] MEDS: WITCH HAZEL 40 PADS/BOX 1 EACH TP (18:54)
[2025-07-26] MEDS: ACETAMINOPHEN 500MG TAB 1000 MG PO (19:37)
[2025-07-26] MEDS: IBUPROFEN 400 MG TABLET 800 MG PO (19:37)
[2025-07-26 22:11] VITALS: BP 135/62; PULSE 77; RESP 17; TEMP 36.9; O2SAT 98
[2025-07-26 22:12] LABS: POC Glucose,Bedside 58 gm/dL (70-110)
[2025-07-27 04:36] VITALS: BP 107/58; PULSE 79; RESP 18; TEMP 36.8; O2SAT 98
[2025-07-27 07:37] LABS: Hematocrit 30.0 % (37.0-47.0); Hemoglobin 9.9 g/dL (12.2-16.2); Immature Granulocytes % 1.0 %; Mean Corpuscular HGB Conc 33.0 g/dL (31.8-35.4); Mean Corpuscular Hemoglobin 29.1 pg (27.0-31.2); Mean Corpuscular Volume 88.2 fl (81-99); Nucleated Red Blood Cells % 0 %; Platelet Count 171 K/mm3 (142-424); Red Blood Count 3.40 M/mm3 (4.20-5.40); Red Cell Distribution Width-SD 42.4 fL; White Blood Count 11.9 K/mm3 (4.5-13.0)
[2025-07-27 07:56] LABS: Alanine Aminotransferase 20 U/L (12-78); Albumin Level 2.8 g/dl (3.5-5.0); Albumin/Globulin Ratio 1.3 (1.1-1.8); Alkaline Phosphatase 147 U/L (38-126); Anion Gap 10.2 mEq/L (5-15); Aspartate Amino Transferase 39 U/L (14-36); Bilirubin,Total 0.5 mg/dl (0.2-1.3); Blood Urea Nitrogen 5 mg/dl (7-17); Calcium 8.3 mg/dl (8.4-10.2); Carbon Dioxide 24 mmol/L (22.0-30.0); Chloride 105 mmol/L (98-107); Creatinine Clearance Estimated 209 mL/min (50-200); Creatinine,Serum 0.50 mg/dl (0.52-1.04); Estimated Glomerular Filt Rate 157 ml/min (>60); GFR (African American) 190 ML/MIN (>60); Globulin 2.2 g/dL (1.3-3.2); Glucose 84 mg/dl (74-100); Potassium 3.2 mmoL/L (3.5-5.1); Sodium 136 mmol/L (136-145); Total Protein,Serum 5.0 g/dl (6.3-8.2)
[2025-07-27 08:30] VITALS: BP 122/69; PULSE 100; RESP 18; TEMP 36.8; O2SAT 100
[2025-07-27] MEDS: SENNA 8.6MG TABLET 8.6 MG PO ×2 (08:36→19:50)
--- NOTE | 2025-07-27 12:43 | EXP.ACUTE.PN ---
Subjective *Date: 07/27/25 *Time: 12:43 Interval history: PPD # 1 s/p Feeling well. Pain controlled. Formula feeding. Lochia is appropriate. Voiding without difficulty and passing flatus. Tolerating regular diet. Denies fever/chills, chest pain and shortness of breath. No headaches, vision changes, lightheadedness/dizziness. No lower extremity swelling. Ambulating well ad jr. Medical Exam Vital signs and Labs for Last 24 Hours: Vital Signs Temp Pulse Resp BP Pulse Ox O2 Del Method 07/27/25 08:30 98.3 F 100 H 18 122/69 100 07/27/25 04:36 98.3 F 79 18 107/58 L 98 Room Air 07/26/25 22:11 98.4 F 77 17 135/62 98 Room Air Intake and Output 07/26/25 07/27/25 07/27/25 23:59 07:59 15:59 Intake Total 1455.6 / 3500.000 Balance 1455.6 / 3500.000 Intake: Intake, Total IV Amount 1455.6 / 3500.000 Dextrose 5%-Lactated Ringers 1, 1000 / 2000 000 ml @ 125 mls/hr IV .Q8H LUIZA Rx#:[id number] Oxytocin/Ringers Lactate 30 455.6 / 500.000 units In 500 ml @ 2 mls/hr IV . Q25H ONE Rx#:[id number] Laboratory Results - last 24 hr 07/25/25 14:32: RPR w/Rflx to Titer Nonreactive 07/26/25 22:04: POC Glucose 58 L 07/27/25 07:22: WBC 11.9 D, RBC 3.40 L, Hgb 9.9 L, Hct 30.0 L, MCV 88.2, MCH 29.1, MCHC 33.0, RDW 13.2, Plt Count 171, MPV 11.2 H, Neut % (Auto) 77.4, Lymph % (Auto) 14.2, Pershing % (Auto) 6.5, Eos % (Auto) 0.6, Baso % (Auto) 0.3, Neut # (Auto) 9.2 H, Lymph # (Auto) 1.7, Pershing # (Auto) 0.8, Eos # (Auto) 0.1, Baso # (Auto) 0.0, Sodium 136, Potassium 3.2 L, Chloride 105, Carbon Dioxide 24, Anion Gap 10.2, BUN 5 L D, Creatinine 0.50 L, Estimated Creat Clear 209, Estimated GFR 157, Est GFR ( Amer) 190, Glucose 84, Calcium 8.3 L, Total Bilirubin 0.5, AST 39 H D, ALT 20, Alkaline Phosphatase 147 H, Total Protein 5.0 L, Albumin 2.8 L, Globulin 2.2, Albumin/Globulin Ratio 1.3 07/27/25 09:43: Screen Negative, Baby's Rh Status Positive I & O for Labs for Last 24 Hours: Intake & Output 07/24/25 07/25/25 07/26/25 07/27/25 23:59 23:59 23:59 23:59 Intake Total 3500.000 / 3500.000 Balance 3500.000 / 3500.000 Weight 163 lb Head: Present atraumatic and normocephalic ENT: Present normal exam Neck: Present normal inspection and full ROM Respiratory: Present CTA bilaterally and normal respiratory effort Cardiac: Present Reg Rate and Rhythm GI: Present soft; Absent distention or tenderness Comments:: Uterine fundus firm and below umbilicus Rectal (female): Present deferred (female): Present deferred Extremities: Present normal inspection and full ROM Neuro: Present alert, awake and moves all extremities Assessment and Plan *Assessment and plan (1) Status post normal vaginal delivery: Status: Acute Category: Medical (2) Intrahepatic cholestasis of : Status: Acute Qualifiers: Trimester: third trimester Qualified Code(s): O26.643 - Intrahepatic cholestasis of , third trimester Category: Medical Code(s): O26.649 - Intrahepatic cholestasis of , unspecified trimester (3) Rh negative state in antepartum period: Status: Acute Category: Medical Code(s): O26.899 - Other specified related conditions, unspecified trimester; Z67.91 - Unspecified blood type, Rh negative Plan Continue routine care Encouraged increased ambulation AM Hgb 9.69 (10.0 on admission) AM LFTs - AST 39, ALT 20 Plan d/c home tomorrow, PPD # 2
[2025-07-27] MEDS: ACETAMINOPHEN 500MG TAB 1000 MG PO (15:02)
[2025-07-27] MEDS: RHO(D) IMMUNE GLOBULIN 1,500 UNIT (300MCG) SYRINGE 300 MCG IM (15:21)
[2025-07-27] MEDS: PRENATAL MULTIVITAMIN W/IRON 1 EACH PO (17:08)
[2025-07-27 19:39] VITALS: BP 112/62; PULSE 76; RESP 17; TEMP 36.9; O2SAT 97
[2025-07-28] MEDS: ACETAMINOPHEN 500MG TAB 1000 MG PO (02:49)
[2025-07-28 04:44] VITALS: BP 118/67; PULSE 73; RESP 18; TEMP 36.7; O2SAT 97
[2025-07-28] MEDS: WITCH HAZEL 40 PADS/BOX 1 EACH TP (04:50)
[2025-07-28] MEDS: BENZOCAINE-MENTHOL SPRAY 56GM CAN TP (04:50)
[2025-07-28 07:44] VITALS: BP 120/63; PULSE 67; RESP 18; TEMP 36.8; O2SAT 99
--- NOTE | 2025-07-28 11:26 | EXP.DC.SUM ---
General Admission date:: 07/25/25 Discharge date: 07/28/25 HPI HPI HPI: PPD # 2 s/p Feeling well. Pain controlled. Formula feeding. Lochia is light. Voiding without difficulty and passing flatus. Tolerating regular diet. Denies fever/chills, chest pain and shortness of breath. No headaches, vision changes, lightheadedness/dizziness. No lower extremity swelling. Ambulating well ad jr. Hospital Course Hospital Course Hospital Course: Ms Julianna Toure is a 20 yo at 36w6d who presents to [facility] L[facility] for scheduled induction of labor secondary to intraheptic cholestasis of . ICP was diagnosed in the first trimester. She has been taking Ursodiol 300 mg TID. Last CMP demonstrated AST 27 and ALT 13. Most recent bile acids was 8.5. Bile acids reached 17.6 02/28/25. She has had good care and comanagement with [facility] at [facility]. Baby has a known right pelvic kidney that has been seen on multiple ultrasounds. She underwent induction of labor with Cytotec followed by Pitocin. She had a normal spontaneous vaginal delivery on 07/26/25 at 1802. She delivered a live male baby, Terence, weighing 7 lb 15 oz. APGARs 8 (1 min), 9 (5 min). EBL 100 mL. She did well . Pain controlled. Formula feeding. Light lochia. Voiding without difficulty and passing flatus. Tolerating regular diet. Denies fever/chills, chest pain and shortness of breath. No headaches, dizziness/lightheadedness or vision changes. Vital signs stable, afebrile. Heart regular rate and rhythm. Lungs clear to auscultation. Abdomen soft, nontender. No lower extremity swelling. Ambulating well ad jr. Normal hospital course. She was discharged to home on PPD # 2 with instructions to follow-up in the office in 2 weeks or sooner if needed. Exam Data for Last 24 hours Vital signs and Labs for Last 24 Hours: Temp Pulse Resp BP Pulse Ox O2 Del Method 98.3 F 67 18 120/63 99 Room Air 07/28/25 07:44 07/28/25 07:44 07/28/25 07:44 07/28/25 07:44 07/28/25 07:44 07/28/25 07:44 I & O for Last 24 hours: Intake & Output 07/25/25 07/26/25 07/27/25 07/28/25 23:59 23:59 23:59 23:59 Intake Total 3500.000 / 4000.000 500 / 500 Balance 3500.000 / 4000.000 500 / 500 Weight 163 lb Constitutional Constitutional: no acute distress and cooperative *Routine HEENT Exam Head: Present normocephalic and atraumatic Eye: Absent conjunctivae pink ENT: Present mucous membranes moist *Routine Neck Exam Neck: Present full ROM *Routine Respiratory Exam Respiratory: Present CTA bilaterally and normal respiratory effort *Routine Cardiovascular Exam Cardiovascular: Present RRR *Routine Abdominal Exam Abdominal: Present soft; Absent tenderness or distended *Routine Rectal Exam Patient deferred: visual exam *Routine Exam Patient deferred: external exam *Routine Extremities Exam Extremities: Present full ROM; Absent edema or calf tenderness *Routine Neurological Exam Neurological: Present alert, moving all extremities and normal speech Routine Psychiatric Exam Psychiatric: Present normal affect and cooperative DS: Diagnosis Discharge Diagnosis (1) Status post normal vaginal delivery: Status: Acute (2) Intrahepatic cholestasis of : Status: Acute Code(s): O26.649 - Intrahepatic cholestasis of , unspecified trimester Qualifiers: Trimester: third trimester Qualified Code(s): O26.643 - Intrahepatic cholestasis of , third trimester (3) Rh negative state in antepartum period: Status: Acute Code(s): O26.899 - Other specified related conditions, unspecified trimester; Z67.91 - Unspecified blood type, Rh negative Meds Home Medications and Allergies Home Medications ?Medication ?Instructions ?Recorded ?Confirmed ?Type vits no.126-ferrous fum 1 tab PO DAILY 12/25/24 07/25/25 History 28 mg iron-folic acid 800 mcg tablet (Classic ) New Prescriptions to Start Prescriptions: Allergies Allergy/AdvReac Type Severity Reaction Status Date / Time amoxicillin (From Augmentin) Allergy Mild rash Verified 07/22/25 15:19 clavulanic acid (From Allergy Mild rash Verified 07/22/25 15:19 Augmentin) Discharge Plan Disposition Patient Disposition: Home, Self-Care Condition: Good Discharge Order Discharge Orders: Discharge Order (Routine); Ordered 07/28/25 Ordered By: Sabrina Simms Follow up Plan Follow up with: Jayden Joiner MD [Staff Physician, [facility]] - 08/12/25 3:00 pm Prescriptions/Medication Reconciliation: Continued Classic 28 mg iron- 800 mcg tablet 1 tab PO DAILY Discontinued ursodiol 300 mg capsule 300 mg PO BID Problem Reconciliation Problems Reviewed?: Yes Patient Discharge Instructions ACTIVITY: Limited activity DIET: continue same diet and regular diet Additional Instructions: Congratulations!! Discharge: 1. Take 800 mg Ibuprofen every 8 hours as needed for pain. You can also take 500-1000 mg of Tylenol in between doses, every 6-8 hours. 2. Nothing in the vagina for 6 weeks - no intercourse, douching or tampons. No tub baths/hot tubs or swimming pools 3. Reasons to return to L&D or call On-Call doctor - fever (greater than 100.4) - heavy vaginal bleeding (soaking through 1 pad in less than 2 hours) - vaginal discharge (malodorous and/or purulent) - severe headaches not resolved by medication or rest a 4. depression/blues - Normal to feel anxious/overwhelmed for first 2 weeks - Talk to your doctor if: severe anxiety, trouble bonding with baby, withdrawing from other family members, thoughts of harming yourself or others Sabrina Simms DO [facility] [phone] Patient Instructions: Depression, Hemorrhage, DI for Labor and Delivery, Vaginal , DI for Pre-eclampsia, [facility] Post Discharge Instructions Print Language: Chinese Providers Primary Care Provider: Provider,Referral Admit Provider: Sabrina Simms Attending Provider: Sabrina Simms
== END 2025-07-28 12:13 | disposition home or self-care (01) | DRG 807 ==
PROVIDERS: Admitting Provider Obstetrics & Gynecology; Visit Provider Obstetrics & Gynecology
DX: O26.643 Intrahepatic cholestasis of pregnancy, third trimester (principal); Z37.0 Single live birth; Z3A.36 36 weeks gestation of pregnancy; O35.EXX0 Maternal care for other (suspected) fetal abnormality and damage, fetal genitourinary anomalies, not applicable or unspecified; O69.81X0 Labor and delivery complicated by cord around neck, without compression, not applicable or unspecified; O26.893 Other specified pregnancy related conditions, third trimester; O71.82 Other specified trauma to perineum and vulva; Z67.11 Type A blood, Rh negative; Z88.0 Allergy status to penicillin; Z88.1 Allergy status to other antibiotic agents; Z79.899 Other long term (current) drug therapy; Z23 Encounter for immunization
CPT/HCPCS: 36415; 51702; 59025; 80053; 82962; 85025; 85461; 86592; 86850; 86870; 94761; C1758; J0595; J2405; J2790; J7120; J7121